=== PATIENT | female | born 1965 | race Caucasian/White ===

== ENCOUNTER 2019-10-20 18:10 | Emergency (ER) | payer MEDICAID, SELFPAY ==
[2019-10-20 18:14] VITALS: BP 103/84; PULSE 116; RESP 18; TEMP 36.6; O2SAT 93; BMI 23.0
--- NOTE | 2019-10-20 18:33 | ED_ITS ---
HPI - General Adult General: Chief complaint: General Medical Stated complaint: neck pain, nausea Time Seen by Provider: 10/20/19 18:19 History of Present Illness: HPI narrative: Patient complains about the right side of her neck and back hurting for the last 3 days not sure what caused the woke up that way. Has pain with range of motion does feel nauseous from the pain. MD complaint: Neck pain Onset (ago): day(s) Location: neck and right Radiation: back Severity: moderate Severity scale (1-10): 6 Quality: burning and aching Pain Consistency: constant Relieving factors: immobilization Exacerbating factors: movement Associated symptoms: Reports nausea; Deny chest pain, dyspnea, headache(s) or rash Treatments prior to arrival: none Review of Systems Narrative: Patient with history of chronic pain complains about the right side of her neck hurting down into the trapezius area over the last 3 days woke [address] felt like neck was somewhat stiff Const: Denies: fever, chills or body aches Eyes: Denies: change in vision or blurry vision ENMT: Denies: throat pain or nasal congestion Card: Denies: chest pain or shortness of breath on exertion Resp: Denies: shortness of breath, productive cough or non-productive cough GI: Reports: nausea Musc: Denies: extremity pain Skin/Breast: Denies: rash Neuro: Denies: headache Psych: Denies: anxiety or depression James/Lymph: Denies: easy bruising PFSH ED PFSH: Social History Smoking and tobacco status: never smoked Physical Exam Const: COMMON NORMALS: no apparent distress, average body habitus and oriented x3 HENMT: COMMON NORMALS: normocephalic HEAD & SCALP: normal to inspection and normocephalic FACE & SINUS: normal facial exam Eye: COMMON NORMALS: conjunctivae normal GENERAL EYE: normal appearance of both eyes CONJUNCTIVA: Yes conjunctivae normal Neck/C-Spine: COMMON NORMALS: no JVD Chest: COMMONS NORMALS: inspection of chest normal Resp: COMMON NORMALS: normal respiratory effort and clear to auscultation bilaterally AUSCULTATION: clear to auscultation bilaterally Cardio: COMMON NORMALS: no JVD, regular rate and regular rhythm RATE: regular rate RHYTHM: regular rhythm GI: COMMON NORMALS: normal to inspection, nondistended, normoactive bowel sounds Back/Pelvis: OTHER: Patient has tenderness from the base the right-sided neck to the right shoulder down to where the trapezius attaches near the spine muscles tender throughout does have range of motion but pain with range of motion able to turn the head without problems. Extremity: COMMON NORMALS: normal to inspection and full ROM Neuro: COMMON NORMALS: oriented x3 Course Vital Signs: Vital signs: Vital Signs Temperature 97.8 F 10/20/19 18:14 Pulse Rate 116 H 10/20/19 18:14 Respiratory Rate 18 10/20/19 18:14 Blood Pressure 103/84 10/20/19 18:14 Pulse Oximetry 93 10/20/19 18:14 Coding Level of Care Code ED Microcomputer Technician for Bess Chen
[2019-10-20] MEDS: orphenadrine 30 mg/mL Inj 2 mL 60 MG IM (18:38)
[2019-10-20] MEDS: ketorolac 60 mg/2 mL INJ IM (18:38)
[2019-10-20 18:43] VITALS: RESP 18
[2019-10-20] MEDS: ondansetron 4 MG Tablet 8 MG PO (19:12)
[2019-10-20 19:35] VITALS: BP 116/72; PULSE 108; RESP 18; TEMP 36.4; O2SAT 94
== END 2019-10-20 19:37 | disposition home or self-care (01) ==
LOC: ER 18:50
PROVIDERS: Emergency Provider Nurse Practitioner Family; Family Provider Family Medicine; PCP Family Medicine
DX: M54.2 Cervicalgia (principal); M54.9 Dorsalgia, unspecified; R11.0 Nausea
CPT/HCPCS: 12345; 96372; 99281; 99282; 99283; J1885; J2360; Q0162

== ENCOUNTER 2020-01-26 15:59 | Emergency (ER) | payer MEDICAID, SELFPAY ==
[2020-01-26 16:05] VITALS: BP 149/102; PULSE 95; RESP 18; TEMP 36.6; O2SAT 97; BMI 23.9
--- NOTE | 2020-01-26 16:25 | XRR_ITS ---
PROCEDURE INFORMATION: Exam: XR Chest, 2 Views Exam date and time: 01/26/2020 4:25 PM Age: 54 years old Clinical indication: Other: Body aches TECHNIQUE: Imaging protocol: XR of the chest Views: 2 views. COMPARISON: No relevant prior studies available. FINDINGS: Lungs: Unremarkable. No consolidation. The lungs are hyperinflated. Pleural space: Unremarkable. No pleural effusion. No pneumothorax. Heart/Mediastinum: Unremarkable. No cardiomegaly. The aorta is ectatic. Bones/joints: Unremarkable. XR/XR chest 2V* [id number] IMPRESSION: No acute findings. The lungs are hyperinflated but clear.
--- NOTE | 2020-01-26 16:29 | W.ED.GENADLT ---
HPI - General Adult General: Chief complaint: General Medical Stated complaint: BODY ACHES/N Time Seen by Provider: 01/26/20 16:16 Source: patient Mode of arrival: ambulatory Limitations: no limitations History of Present Illness: HPI narrative: Patient is a 54-year-old female patient who presents with generalized body aches. She said all her joints, most of the muscles are hurting. She denies any fever. No nausea or vomiting. She does endorse some tick bites. No diaphoresis. No trouble breathing. Her only complaint is generalized body aches and pains Associated symptoms: Deny dyspnea, headache(s), nausea, rash, palpitations or vomiting Review of Systems General: Reports: 10 or more systems reviewed and unremarkable except in HPI and below Const: Denies: fever(s), chills or body aches Eyes: Denies: change in vision or blurry vision ENMT: Denies: throat pain, enlarged tonsils, odynophagia, hoarseness, mouth pain or swelling of lips/tongue Card: Denies: palpitations, irregular heart rhythm, edema or swelling of feet/ankles Resp: Denies: dyspnea, productive cough or non-productive cough GI: Denies: abdominal pain, nausea or vomiting : Denies: flank pain, difficulty voiding, dysuria, urinary frequency, urinary urgency or urinary hesitancy Musc: Reports: extremity pain and joint pain; Denies: neck pain, back pain or extremity swelling Skin/Breast: Denies: rash, pruritus or erythema Neuro: Denies: headache(s), numbness in extremities or weakness in extremities Endo: Denies: polyuria, polydipsia or tired all the time [facility] ED PFSH: Social History Smoking and tobacco status: never smoked Physical Exam Const: COMMON NORMALS: no acute distress, average body habitus, patient oriented x3, no limitations, healthy appearing, alert and well nourished Neck/C-Spine: COMMON NORMALS: no meningeal signs and no JVD Resp: COMMON NORMALS: normal respiratory effort, No retractions, No use of accessory muscles, clear to auscultation bilaterally and percussion normal AUSCULTATION: clear to auscultation bilaterally PERCUSSION: percussion normal Cardio: COMMON NORMALS: no JVD, regular rate, regular rhythm, S1 normal heart sound present, S2 normal heart sound present, No gallops present (Cardio), No clicks present (Cardio), No murmurs present (Cardio), No rub (Cardio) and Peripheral pulses 2+ throughout RATE: regular rate RHYTHM: regular rhythm HEART SOUNDS: S1 normal heart sound present and S2 normal heart sound present PERIPHERAL PULSES: Peripheral pulses 2+ throughout GI: COMMON NORMALS: Normal to inspection, nondistended, normoactive bowel sounds present, Soft to palpation, non-tender, No hepatosplenomegaly present, no masses and no bruits PALPATION: Yes Soft to palpation and Yes No hepatosplenomegaly present : COMMON NORMALS: Yes no CVA tenderness BLADDER/KIDNEY EXAM: Yes no CVA tenderness Back/Pelvis: COMMON NORMALS: no CVA tenderness Extremity: COMMON NORMALS: normal to inspection, full ROM, capillary refill normal, no calf tenderness and no pedal edema Neuro: COMMON NORMALS: patient oriented x3 SENSORIUM/ORIENTATION: Yes alert MENINGEAL SIGNS: Yes no meningeal signs Skin: COMMON NORMALS: no rashes or lesions noted, no wounds, turgor normal, no jaundice, no petechiae and no mottling GENERAL SKIN EXAM: no rashes or lesions noted and turgor normal Course Reevaluation(s): Reevaluation #1: Discussed her lab and imaging findings with her. Negative for acute findings. CRP negative, no inflammation. We will wait on the results of the tickborne illness tests. We will discharge her home with a few days supply of hydrocodone. Explained to her blood glucose is significantly elevated and she is advised to be compliant to her medications. She voiced understanding and is in agreement with the plan. Time: 18:18 Vital Signs: Vital signs: Vital Signs Temperature 97.9 F 01/26/20 16:05 Pulse Rate 78 01/26/20 19:04 Respiratory Rate 18 01/26/20 19:04 Blood Pressure 142/65 01/26/20 19:04 Pulse Oximetry 98 01/26/20 19:04 MDM - General Adult MDM Narrative: Medical decision making narrative: 54-year-old female patient who presents with generalized body aches. Evaluation is negative for inflammatory/infectious cause. Examination was unremarkable. She is tested for tickborne illness as she has had tick bites in the last couple of weeks. She does not believe any of them was engorged though. She is discharged home with a few tablets of hydrocodone and will be contacted with the results of the tick panel. She is to follow-up with her primary care provider Medical Records: Attestation: I reviewed the patient's medical records. Lab Data: Attestation: I reviewed the patient's lab results. Labs: Lab Results 01/26/20 01/26/20 01/26/20 Range/Units 16:35 16:35 17:07 WBC 6.1 (4.0-10.0) 10^3/ uL RBC 4.58 (4.1-5.3) 10^6/u L Hgb 13.3 (11.5-15.3) g/dL Hct 40.5 (37.0-47.0) % MCV 88.4 (81-99) fL MCH 29.0 (28.0-34.0) pg MCHC 32.8 (30.0-36.0) g/dL RDW 12.6 (12.1-15.1) % Plt Count 203 (130-400) 10^3/c mm MPV 11.4 H (7.4-10.4) fL Neut % (Auto) 63.7 % Lymph % (Auto) 28.8 % Sullivan % (Auto) 5.7 % Eos % (Auto) 1.1 % Baso % (Auto) 0.5 % Neut # (Auto) 3.9 (1.8-7.7) 10^3/u L Lymph # (Auto) 1.8 (0.8-4.8) 10^3/u L Sullivan # (Auto) 0.4 (0.2-0.9) 10^3/u L Eos # (Auto) 0.1 (0.0-0.8) 10^3/u L Baso # (Auto) 0.0 (0.0-0.1) 10^3/u L Nucleated RBC % (a uto) 0 % Nucleated RBCs # 0.0 /100WBC Sodium 135 L (136-145) mmol/L Potassium 3.9 (3.5-5.1) mmol/L Chloride 96 L (98-107) mmol/L Carbon Dioxide 28 (22-29) mmol/L Anion Gap 14.9 (5-19) BUN 11 (6-20) mg/dL Creatinine 0.5 (0.5-0.9) mg/dL GFR Calculation 128.1 (90-130) mL/min Glucose 416 H (65-115) mg/dL Calculated Osmolal ity 294 (285-295) mOsm/k g Calcium 9.6 (8.5-10.5) mg/dL Total Bilirubin 0.2 (0.15-1.2) mg/dL AST 29 (0-32) U/L ALT 17 (0-33) U/L Alkaline Phosphata se 230 H (35-105) IU/L Creatine Kinase 33 (26-192) U/L C-Reactive Protein 1.0 (0.0-4.9) mg/L Total Protein 6.3 L (6.6-8.7) g/dL Albumin 3.9 (3.5-5.2) g/dL Globulin 2.4 (1.3-4.6) g/dL Urine Color Yellow (Yellow) Urine Appearance Clear (CLEAR) Urine pH 5 (5-7) Ur Specific Gravit y 1.010 (1.005-1.030) Urine Protein Neg (Negative) Urine Glucose (UA) 4+ H (Normal) Urine Ketones Negative (Negative) Urine Blood Neg (Negative) Urine Nitrate Negative (Negative) Urine Bilirubin Neg (NEGATIVE) Urine Urobilinogen Norm (Negative) mg/dL Ur Leukocyte Lillie ase Negative (Negative) Imaging Data^: CXR: Radiologist's impression: [place] [address] XRay Report Signed Patient: Franklin Farah #: [id number] : 1965Acct#:[id number] Age/Sex: 54 / FADM Date: 01/26/20 Loc: ERRoom/Bed: Attending Dr: Ordering Provider/Ordering MD: Héctor Crawford [place] [facility] [place] Service: 01/26/20 Procedure(s): XR chest 2V* 63099 Accession Number(s): [id number] Report Number: [id number] PROCEDURE INFORMATION: Exam: XR Chest, 2 Views Exam date and time: 01/26/2020 4:25 PM Age: 54 years old Clinical indication: Other: Body aches TECHNIQUE: Imaging protocol: XR of the chest Views: 2 views. COMPARISON: No relevant prior studies available. FINDINGS: Lungs: Unremarkable. No consolidation. The lungs are hyperinflated. Pleural space: Unremarkable. No pleural effusion. No pneumothorax. Heart/Mediastinum: Unremarkable. No cardiomegaly. The aorta is ectatic. Bones/joints: Unremarkable. XR/XR chest 2V* [id number] IMPRESSION: No acute findings. The lungs are hyperinflated but clear. Discharge Plan Discharge Patient Disposition: Home, Self-Care Clinical Impression: Generalized body aches Condition: Stable Prescriptions: [place] 5-325 mg tablet 1 tab PO Q8H PRN (Reason: pain) Qty: 10 RF: 0 Zofran 4 mg tablet 4 mg PO Q8H PRN (Reason: nausea and vomiting) Qty: 30 RF: 0 Continued prednisone 5 mg tablet 5 mg PO DAILY RF: 0 mycophenolate mofetil 200 mg/mL suspension for reconstitution See Rx Instructions .ROUTE .COMPLEX RF: 0 tacrolimus 1 mg capsule See Rx Instructions .ROUTE .COMPLEX RF: 0 Novolog Flexpen U-100 Insulin 100 unit/mL (3 mL) Insulin Pen See Rx Instructions .ROUTE .COMPLEX RF: 0 Lantus Solostar U-100 Insulin 100 unit/mL (3 mL) insulin pen 30 unit SUBCUT BEDTIME RF: 0 Discharge Orders: Discharge Order (Routine); Ordered 01/26/20 Ordered By: Héctor Crawford Referrals: Asha Kinsey DO [Primary Care Provider] - 4-7 days Patient Instructions: Myalgia Activity Restrictions/Additional Instructions: Return for any new or worsening symptoms. Follow-up with your primary care provider within 1 week. You will be contacted with the results of your tick tests. Discharge Date/Time: 01/26/20 19:06 Coding Level of Care Code ED Vp Of Digital Marketing for Bess Fwd Exam Comprehensive
[2020-01-26 16:48] LABS: Basophils % 0.5 %; Eosinophils # 0.1 10^3/uL (0.0-0.8); Eosinophils % 1.1 %; Hematocrit 40.5 % (37.0-47.0); Hemoglobin 13.3 g/dL (11.5-15.3); Lymphocytes # 1.8 10^3/uL (0.8-4.8); Lymphocytes % 28.8 %; Mean Corpuscular HGB Conc 32.8 g/dL (30.0-36.0); Mean Corpuscular Volume 88.4 fL (81-99); Mean Platelet Volume 11.4 fL (7.4-10.4); Monocytes # 0.4 10^3/uL (0.2-0.9); Monocytes % 5.7 %; Neutrophils # 3.9 10^3/uL (1.8-7.7); Neutrophils % 63.7 %; Nucleated Red Blood Cells % 0 %; Platelet Count 203 10^3/cmm (130-400); Red Blood Count 4.58 10^6/uL (4.1-5.3); Red Cell Distribution Width 12.6 % (12.1-15.1); White Blood Count 6.1 10^3/uL (4.0-10.0)
[2020-01-26] MEDS: ketorolac 60 mg/2 mL INJ IM (17:00)
[2020-01-26] MEDS: orphenadrine 30 mg/mL Inj 2 mL 60 MG IM (17:00)
[2020-01-26 17:02] LABS: Alanine Aminotransferase 17 U/L (0-33); Albumin Level 3.9 g/dL (3.5-5.2); Alkaline Phosphatase 230 IU/L (35-105); Anion Gap 14.9 (5-19); Aspartate Amino Transferase 29 U/L (0-32); Blood Urea Nitrogen 11 mg/dL (6-20); Calcium 9.6 mg/dL (8.5-10.5); Carbon Dioxide 28 mmol/L (22-29); Chloride 96 mmol/L (98-107); Creatine Phosphokinase 33 U/L (26-192); Creatinine Clr Calc Pharmacy 112.2564; Globulin 2.4 g/dL (1.3-4.6); Glomerular Filtration Rate 128.1 mL/min (90-130); Glucose 416 mg/dL (65-115); Osmolality Calculated 294 mOsm/kg (285-295); Potassium 3.9 mmol/L (3.5-5.1); Sodium 135 mmol/L (136-145); Total Bilirubin 0.2 mg/dL (0.15-1.2); Total Protein 6.3 g/dL (6.6-8.7)
[2020-01-26 17:33] LABS: Add Urine Microscopic? NO
[2020-01-26 17:44] LABS: Bilirubin Urine Neg (NEGATIVE); Blood Urine Neg (Negative); Glucose Urine UA 4+ (Normal); Ketones Urine Negative (Negative); Leukocyte Esterase Urine Negative (Negative); Nitrate Urine Negative (Negative); Protein Urine Neg (Negative); Urine Appearance Clear (CLEAR); Urine Color Yellow (Yellow); Urobilinogen Urine Norm (Negative); pH Urine 5 (5-7)
[2020-01-26] MEDS: ondansetron 4 MG Tablet PO (18:59)
[2020-01-26 19:04] VITALS: BP 142/65; PULSE 78; RESP 18; O2SAT 98
== END 2020-01-26 19:06 | disposition home or self-care (01) ==
PROVIDERS: Emergency Provider Family Medicine; Family Provider Family Medicine; PCP Family Medicine
DX: R52 Pain, unspecified (principal)
CPT/HCPCS: 12345; 36415; 71046; 80053; 81003; 82550; 85025; 86140; 86618; 86666; 86757; 96372; 99281; 99283; J1885; J2360; Q0162

== ENCOUNTER 2020-02-03 13:39 | Emergency (ER) | payer MEDICAID, SELFPAY ==
[2020-02-03 13:42] VITALS: BP 139/81; PULSE 107; RESP 14; TEMP 36.8; O2SAT 98; BMI 23.6
--- NOTE | 2020-02-03 14:05 | W.ED.WEAKNES ---
HPI - Weakness General: Chief complaint: Weakness Stated complaint: aches all over Time Seen by Provider: 02/03/20 13:55 History of Present Illness: HPI Narrative: Patient complains about ongoing achiness generalized. This is gone on since prior to her last visit. 1 of the results were tick panel. Onset (ago): week(s) Duration: constant Location: generalized Migration: none Severity: moderate Quality: aching Relieving factors: none Associated symptoms: Reports no associated symptoms; Denies chest pain, chills, easy bruising, fever(s), headache(s), nausea or vomiting Review of Systems Const: Denies: fever(s), chills or body aches Eyes: Denies: change in vision or blurry vision ENMT: Denies: throat pain or nasal congestion Card: Denies: chest pain or dyspnea on exertion Resp: Denies: dyspnea, productive cough or non-productive cough GI: Denies: abdominal pain, nausea or vomiting Musc: Reports: other (Muscle aching joint aching); Denies: extremity pain Skin/Breast: Denies: rash Neuro: Denies: headache(s) Psych: Denies: anxiety or depression James/Lymph: Denies: easy bruising PFSH ED PFSH: Social History Smoking and tobacco status: never smoked Physical Exam Const: COMMON NORMALS: no acute distress, average body habitus and patient oriented x3 HENMT: COMMON NORMALS: normocephalic HEAD & SCALP: normal to inspection and normocephalic FACE & SINUS: normal facial exam Eye: COMMON NORMALS: conjunctivae normal GENERAL EYE: appearance normal, both eyes and all related structures CONJUNCTIVA: Yes conjunctivae normal Neck/C-Spine: COMMON NORMALS: no JVD Chest: COMMONS NORMALS: normal inspection of the chest Resp: COMMON NORMALS: normal respiratory effort and clear to auscultation bilaterally AUSCULTATION: clear to auscultation bilaterally Cardio: COMMON NORMALS: no JVD, regular rate and regular rhythm RATE: regular rate RHYTHM: regular rhythm GI: COMMON NORMALS: Normal to inspection, nondistended, normoactive bowel sounds present Extremity: COMMON NORMALS: normal to inspection and full ROM Neuro: COMMON NORMALS: patient oriented x3 Course Vital Signs: Vital signs: Vital Signs Temperature 98.3 F 02/03/20 13:42 Pulse Rate 107 H 02/03/20 13:42 Respiratory Rate 14 02/03/20 13:42 Blood Pressure 139/81 02/03/20 13:42 Pulse Oximetry 98 02/03/20 13:42 Discharge Plan Discharge Prescriptions: No Action prednisone 5 mg tablet 5 mg PO DAILY RF: 0 mycophenolate mofetil 200 mg/mL suspension for reconstitution See Rx Instructions .ROUTE .COMPLEX RF: 0 tacrolimus 1 mg capsule See Rx Instructions .ROUTE .COMPLEX RF: 0 insulin aspart U-100 [Novolog Flexpen U-100 Insulin] 100 unit/mL (3 mL) Insulin Pen See Rx Instructions .ROUTE .COMPLEX RF: 0 Lantus Solostar U-100 Insulin 100 unit/mL (3 mL) insulin pen 30 unit SUBCUT BEDTIME RF: 0 ondansetron HCl [Zofran] 4 mg tablet 4 mg PO Q8H PRN (Reason: nausea and vomiting) Qty: 30 RF: 0 Coding Level of Care Code ED Other Sales Support Worker for Nikunjg Gustavo
[2020-02-03] MEDS: HYDROcodone-acetaminophen 7.5-325 mg Tablet 1 TAB PO (14:16)
[2020-02-03 14:58] VITALS: BP 138/62; PULSE 74; RESP 18; O2SAT 96
== END 2020-02-03 15:02 | disposition home or self-care (01) ==
PROVIDERS: Emergency Provider Nurse Practitioner Family; PCP Family Medicine
DX: R53.1 Weakness (principal); Z79.4 Long term (current) use of insulin
CPT/HCPCS: 12345; 99281; 99282

== ENCOUNTER 2020-02-17 15:57 | Emergency (ER) | payer MEDICAID, SELFPAY ==
[2020-02-17 16:12] VITALS: BP 117/85; PULSE 104; RESP 18; TEMP 36.7; O2SAT 95; BMI 22.1
[2020-02-17 16:22] VITALS: RESP 18
--- NOTE | 2020-02-17 16:52 | W.ED.GENADLT ---
HPI - General Adult General: Chief complaint: Medical Clearance Stated complaint: multiple complaints Time Seen by Provider: 02/17/20 16:16 History of Present Illness: HPI narrative: This patient is a 54-year-old female presenting today with pain all over. She tells me it is been going on for 2 days but on review of records she has been here twice in the past several weeks for this. She said she has had similar symptoms once in the past when she had take fever. She said she was tested recently for tick illnesses and the test was negative. She denies any history of lupus or arthritis. She does have a history of kidney transplants twice. The most recent was 10 years ago and she still has that functioning kidney. She is on tacrolimus and prednisone. She is a diabetic and does not control her blood sugar well based on review of prior lab results. She is not sure if she took her insulin at all today. She has not checked her blood sugar since she was in the ED last time. She said she cannot take Tylenol because it upsets her stomach. She is been told not to take ibuprofen because of her kidneys. She does not have any pain medicine prescribed at home. After her last ER visit she was supposed to see her primary care. She says her primary care is a nurse practitioner and she did not want to see them. She wants to see a real doctor. She was given a referral to another physician but apparently they were not able to take new patient. She is supposed to call another doctor on Wednesday to see if she can get in there. She follows with [facility] for her kidney transplant. She said she talk to them on a phone consult yesterday and they said everything was good with her kidney. She denies fevers or chills. She denies nausea, vomiting, diarrhea. She denies urinary symptoms. She denies swollen, hot, red joints. She denies rash. She denies chest pain, cough, shortness of breath. Onset (ago): week(s) Severity: severe Severity scale (1-10): 10 Quality: aching Pain Consistency: constant Relieving factors: none Exacerbating factors: none Associated symptoms: Reports no associated symptoms; Deny chest pain, dyspnea, headache(s), malaise, nausea, rash or vomiting Review of Systems General: Reports: 10 or more systems reviewed and unremarkable except in HPI and below Const: Reports: body aches; Denies: fever(s), chills, fatigue or malaise Eyes: Denies: change in vision ENMT: Denies: odynophagia Card: Denies: chest pain or swelling of feet/ankles Resp: Denies: dyspnea, productive cough or non-productive cough GI: Denies: abdominal pain, nausea or vomiting : Denies: flank pain or difficulty voiding Musc: Denies: neck pain or back pain Skin/Breast: Denies: rash Neuro: Denies: headache(s), numbness in extremities or weakness in extremities James/Lymph: Denies: easy bruising or easy bleeding PFSH ED PFSH: Social History Smoking and tobacco status: never smoked Physical Exam Const: COMMON NORMALS: no acute distress, patient oriented x3, no limitations and alert GENERAL APPEARANCE: cooperative and comfortable HENMT: HEAD & SCALP: normal to inspection FACE & SINUS: normal facial exam Eye: GENERAL EYE: appearance normal, both eyes and all related structures Neck/C-Spine: COMMON NORMALS: supple, no meningeal signs and no JVD Chest: COMMONS NORMALS: normal inspection of the chest Resp: COMMON NORMALS: normal respiratory effort, No use of accessory muscles and clear to auscultation bilaterally AUSCULTATION: clear to auscultation bilaterally Cardio: COMMON NORMALS: no JVD, regular rate, regular rhythm and No murmurs present (Cardio) RATE: regular rate RHYTHM: regular rhythm GI: COMMON NORMALS: Normal to inspection, nondistended, normoactive bowel sounds present, Soft to palpation and non-tender INSPECTION: Yes normal to inspection AUSCULTATION: Yes normoactive bowel sounds PALPATION: Yes Soft to palpation Back/Pelvis: COMMON NORMALS: thoracic and lumbar spine normal to inspection Extremity: COMMON NORMALS: normal to inspection Neuro: COMMON NORMALS: patient oriented x3, moves all extremities, no focal motor deficits and no sensory deficits noted SENSORIUM/ORIENTATION: Yes alert MENINGEAL SIGNS: Yes no meningeal signs Psych: COMMON NORMALS: mental status grossly normal, cooperative and normal affect Skin: COMMON NORMALS: no rashes or lesions noted and turgor normal GENERAL SKIN EXAM: no rashes or lesions noted and turgor normal Course Vital Signs: Vital signs: Vital Signs Temperature 98.1 F 02/17/20 18:49 Pulse Rate 100 02/17/20 18:49 Respiratory Rate 22 H 07/11/20 18:49 Blood Pressure 124/95 02/17/20 18:49 Pulse Oximetry 98 02/17/20 18:49 MDM - General Adult MDM Narrative: Medical decision making narrative: Normal exam, nonfocal HPI. Her complaint is pain all over. She is immune compromised and is a poorly controlled diabetic. Labs on prior visits for this were pretty unremarkable. Can repeat them today including inflammatory markers, CK, urine. Lab Data: Labs: Lab Results 02/17/20 02/17/20 02/17/20 Range/Units 17:00 17:22 17:22 WBC 6.2 (4.0-10.0) 10^3/ uL RBC 4.96 (4.1-5.3) 10^6/u L Hgb 14.3 (11.5-15.3) g/dL Hct 43.2 (37.0-47.0) % MCV 87.1 (81-99) fL MCH 28.8 (28.0-34.0) pg MCHC 33.1 (30.0-36.0) g/dL RDW 12.4 (12.1-15.1) % Plt Count 231 (130-400) 10^3/c mm MPV 12.0 H (7.4-10.4) fL Neut % (Auto) 52.3 % Lymph % (Auto) 39.2 % [place] % (Auto) 5.8 % Eos % (Auto) 1.8 % Baso % (Auto) 0.6 % Neut # (Auto) 3.26 (1.8-7.7) 10^3/u L Lymph # (Auto) 2.4 (0.8-4.8) 10^3/u L [place] # (Auto) 0.4 (0.2-0.9) 10^3/u L Eos # (Auto) 0.1 (0.0-0.8) 10^3/u L Baso # (Auto) 0.0 (0.0-0.1) 10^3/u L Nucleated RBC % (a uto) 0 % Nucleated RBCs # 0.0 /100WBC ESR 33 H (0-15) mm/hr Sodium (136-145) mmol/L Potassium (3.5-5.1) mmol/L Chloride (98-107) mmol/L Carbon Dioxide (22-29) mmol/L Anion Gap (5-19) BUN (6-20) mg/dL Creatinine (0.5-0.9) mg/dL GFR Calculation (90-130) mL/min Glucose (65-115) mg/dL POC Glucose (70-110) mg/dL Calculated Osmolal ity (285-295) mOsm/k g Calcium (8.5-10.5) mg/dL Total Bilirubin (0.15-1.2) mg/dL AST (0-32) U/L ALT (0-33) U/L Alkaline Phosphata se (35-105) IU/L Creatine Kinase (26-192) U/L C-Reactive Protein (0.0-4.9) mg/L Total Protein (6.6-8.7) g/dL Albumin (3.5-5.2) g/dL Globulin (1.3-4.6) g/dL Urine Color Straw (Yellow) Urine Appearance Clear (CLEAR) Urine pH 5 (5-7) Ur Specific Gravit y 1.010 (1.005-1.030) Urine Protein Neg (Negative) Urine Glucose (UA) 4+ H (Normal) Urine Ketones Negative (Negative) Urine Blood Neg (Negative) Urine Nitrate Negative (Negative) Urine Bilirubin Neg (NEGATIVE) Urine Urobilinogen Norm (Negative) mg/dL Ur Leukocyte Lillie ase Negative (Negative) 02/17/20 02/17/20 02/17/20 Range/Units 17:22 17:27 17:28 WBC (4.0-10.0) 10^3/ uL RBC (4.1-5.3) 10^6/u L Hgb (11.5-15.3) g/dL Hct (37.0-47.0) % MCV (81-99) fL MCH (28.0-34.0) pg MCHC (30.0-36.0) g/dL RDW (12.1-15.1) % Plt Count (130-400) 10^3/c mm MPV (7.4-10.4) fL Neut % (Auto) % Lymph % (Auto) % [place] % (Auto) % Eos % (Auto) % Baso % (Auto) % Neut # (Auto) (1.8-7.7) 10^3/u L Lymph # (Auto) (0.8-4.8) 10^3/u L [place] # (Auto) (0.2-0.9) 10^3/u L Eos # (Auto) (0.0-0.8) 10^3/u L Baso # (Auto) (0.0-0.1) 10^3/u L Nucleated RBC % (a uto) % Nucleated RBCs # /100WBC ESR (0-15) mm/hr Sodium 133 L (136-145) mmol/L Potassium 4.1 (3.5-5.1) mmol/L Chloride 96 L (98-107) mmol/L Carbon Dioxide 28 (22-29) mmol/L Anion Gap 13.1 (5-19) BUN 11 (6-20) mg/dL Creatinine 0.7 (0.5-0.9) mg/dL GFR Calculation 86.9 L (90-130) mL/min Glucose 454 H (65-115) mg/dL POC Glucose 421 405 (70-110) mg/dL Calculated Osmolal ity 292 (285-295) mOsm/k g Calcium 9.8 (8.5-10.5) mg/dL Total Bilirubin 0.2 (0.15-1.2) mg/dL AST 19 (0-32) U/L ALT 18 (0-33) U/L Alkaline Phosphata se 238 H (35-105) IU/L Creatine Kinase 25 L (26-192) U/L C-Reactive Protein 1.0 (0.0-4.9) mg/L Total Protein 7.4 (6.6-8.7) g/dL Albumin 4.0 (3.5-5.2) g/dL Globulin 3.4 (1.3-4.6) g/dL Urine Color (Yellow) Urine Appearance (CLEAR) Urine pH (5-7) Ur Specific Gravit y (1.005-1.030) Urine Protein (Negative) Urine Glucose (UA) (Normal) Urine Ketones (Negative) Urine Blood (Negative) Urine Nitrate (Negative) Urine Bilirubin (NEGATIVE) Urine Urobilinogen (Negative) mg/dL Ur Leukocyte Lillie ase (Negative) 02/17/20 Range/Units 18:46 WBC (4.0-10.0) 10^3/ uL RBC (4.1-5.3) 10^6/u L Hgb (11.5-15.3) g/dL Hct (37.0-47.0) % MCV (81-99) fL MCH (28.0-34.0) pg MCHC (30.0-36.0) g/dL RDW (12.1-15.1) % Plt Count (130-400) 10^3/c mm MPV (7.4-10.4) fL Neut % (Auto) % Lymph % (Auto) % [place] % (Auto) % Eos % (Auto) % Baso % (Auto) % Neut # (Auto) (1.8-7.7) 10^3/u L Lymph # (Auto) (0.8-4.8) 10^3/u L [place] # (Auto) (0.2-0.9) 10^3/u L Eos # (Auto) (0.0-0.8) 10^3/u L Baso # (Auto) (0.0-0.1) 10^3/u L Nucleated RBC % (a uto) % Nucleated RBCs # /100WBC ESR (0-15) mm/hr Sodium (136-145) mmol/L Potassium (3.5-5.1) mmol/L Chloride (98-107) mmol/L Carbon Dioxide (22-29) mmol/L Anion Gap (5-19) BUN (6-20) mg/dL Creatinine (0.5-0.9) mg/dL GFR Calculation (90-130) mL/min Glucose (65-115) mg/dL POC Glucose 348 (70-110) mg/dL Calculated Osmolal ity (285-295) mOsm/k g Calcium (8.5-10.5) mg/dL Total Bilirubin (0.15-1.2) mg/dL AST (0-32) U/L ALT (0-33) U/L Alkaline Phosphata se (35-105) IU/L Creatine Kinase (26-192) U/L C-Reactive Protein (0.0-4.9) mg/L Total Protein (6.6-8.7) g/dL Albumin (3.5-5.2) g/dL Globulin (1.3-4.6) g/dL Urine Color (Yellow) Urine Appearance (CLEAR) Urine pH (5-7) Ur Specific Gravit y (1.005-1.030) Urine Protein (Negative) Urine Glucose (UA) (Normal) Urine Ketones (Negative) Urine Blood (Negative) Urine Nitrate (Negative) Urine Bilirubin (NEGATIVE) Urine Urobilinogen (Negative) mg/dL Ur Leukocyte Lillie ase (Negative) Discharge Plan Discharge Patient Disposition: Home, Self-Care Clinical Impression: Acute hyperglycemia, History of noncompliance with medical treatment Condition: Stable Prescriptions: New hydrocodone-acetaminophen 5-325 mg tablet 1 tab PO Q6H PRN (Reason: pain) Qty: 7 RF: 0 No Action hydrocodone-acetaminophen 5-325 mg tablet 1 tab PO TID PRN (Reason: pain) Qty: 14 RF: 0 prednisone 5 mg tablet 5 mg PO DAILY RF: 0 mycophenolate mofetil 200 mg/mL suspension for reconstitution See Rx Instructions .ROUTE .COMPLEX RF: 0 tacrolimus 1 mg capsule See Rx Instructions .ROUTE .COMPLEX RF: 0 insulin aspart U-100 [Novolog Flexpen U-100 Insulin] 100 unit/mL (3 mL) Insulin Pen See Rx Instructions .ROUTE .COMPLEX RF: 0 Lantus Solostar U-100 Insulin 100 unit/mL (3 mL) insulin pen 30 unit SUBCUT BEDTIME RF: 0 ondansetron HCl [Zofran] 4 mg tablet 4 mg PO Q8H PRN (Reason: nausea and vomiting) Qty: 30 RF: 0 mupirocin 2 % ointment See Rx Instructions .ROUTE .COMPLEX RF: 0 Discharge Orders: Discharge Order (Routine); Ordered 02/17/20 Ordered By: Maren Goncalves Referrals: Asha Kinsey DO [Primary Care Provider] - Discharge Diet: Diabetic Discharge Activity: Resume usual activity Patient Instructions: Diabetes Mellitus Type 2 in Adults (ED) Activity Restrictions/Additional Instructions: You must check your blood sugar and take your insulin every day. Your pain is likely related to your poor control of your blood sugar. Establish care with your new primary care physician on Wednesday as planned. Discharge Date/Time: 02/17/20 18:49 Coding Level of Care Code ED Wood Room Hand for Chg Fwd Exam Comprehensive
[2020-02-17 17:22] VITALS: BP 124/95; PULSE 100; RESP 22; O2SAT 98
[2020-02-17 17:32] LABS: Glucose Point of Care 405 mg/dL (70-110)
[2020-02-17 17:32] LABS: Glucose Point of Care 421 mg/dL (70-110)
[2020-02-17 17:46] LABS: Add Urine Microscopic? NO
[2020-02-17 17:50] LABS: Basophils % 0.6 %; Eosinophils # 0.1 10^3/uL (0.0-0.8); Eosinophils % 1.8 %; Hematocrit 43.2 % (37.0-47.0); Hemoglobin 14.3 g/dL (11.5-15.3); Lymphocytes # 2.4 10^3/uL (0.8-4.8); Lymphocytes % 39.2 %; Mean Corpuscular HGB Conc 33.1 g/dL (30.0-36.0); Mean Corpuscular Hemoglobin 28.8 pg (28.0-34.0); Mean Corpuscular Volume 87.1 fL (81-99); Monocytes # 0.4 10^3/uL (0.2-0.9); Monocytes % 5.8 %; Neutrophils # 3.26 10^3/uL (1.8-7.7); Neutrophils % 52.3 %; Nucleated Red Blood Cells % 0 %; Platelet Count 231 10^3/cmm (130-400); Red Blood Count 4.96 10^6/uL (4.1-5.3); Red Cell Distribution Width 12.4 % (12.1-15.1); White Blood Count 6.2 10^3/uL (4.0-10.0)
[2020-02-17 18:00] VITALS: RESP 22
[2020-02-17 18:00] LABS: Bilirubin Urine Neg (NEGATIVE); Blood Urine Neg (Negative); Glucose Urine UA 4+ (Normal); Ketones Urine Negative (Negative); Leukocyte Esterase Urine Negative (Negative); Nitrate Urine Negative (Negative); Protein Urine Neg (Negative); Urine Appearance Clear (CLEAR); Urine Color Straw (Yellow); Urobilinogen Urine Norm (Negative); pH Urine 5 (5-7)
[2020-02-17 18:10] LABS: Alanine Aminotransferase 18 U/L (0-33); Alkaline Phosphatase 238 IU/L (35-105); Anion Gap 13.1 (5-19); Aspartate Amino Transferase 19 U/L (0-32); Blood Urea Nitrogen 11 mg/dL (6-20); Calcium 9.8 mg/dL (8.5-10.5); Carbon Dioxide 28 mmol/L (22-29); Chloride 96 mmol/L (98-107); Creatine Phosphokinase 25 U/L (26-192); Globulin 3.4 g/dL (1.3-4.6); Glomerular Filtration Rate 86.9 mL/min (90-130); Glucose 454 mg/dL (65-115); Osmolality Calculated 292 mOsm/kg (285-295); Potassium 4.1 mmol/L (3.5-5.1); Sodium 133 mmol/L (136-145); Total Bilirubin 0.2 mg/dL (0.15-1.2); Total Protein 7.4 g/dL (6.6-8.7)
[2020-02-17 18:31] LABS: Erythrocyte Sedimentation Rate 33 mm/hr (0-15)
[2020-02-17 18:49] VITALS: BP 124/95; PULSE 100; RESP 22; TEMP 36.7; O2SAT 98
[2020-02-17 18:50] LABS: Glucose Point of Care 348 mg/dL (70-110)
== END 2020-02-17 18:49 | disposition home or self-care (01) ==
PROVIDERS: Emergency Provider Emergency Medicine; PCP Family Medicine
DX: R73.9 Hyperglycemia, unspecified (principal); Z91.14 Patient's other noncompliance with medication regimen
CPT/HCPCS: 12345; 36415; 36416; 80053; 81003; 82550; 82962; 85025; 85651; 86140; 96372; 99281; 99283; J1815

== ENCOUNTER 2020-05-25 13:13 | Emergency (ER) | payer MEDICAID, SELFPAY ==
[2020-05-25 13:22] VITALS: BP 143/91; PULSE 88; RESP 14; TEMP 36.6; O2SAT 96; BMI 23.0
--- NOTE | 2020-05-25 13:35 | ED_ITS ---
HPI - Headache General: Chief Complaint: Headache Stated Complaint: MIGRAINE, N/V Time Seen by Provider: 05/25/20 13:32 History of Present Illness: HPI Narrative: Patient with tension type headache pain back neck radiates into the head light and sound bother her since her classic migraine that she has. MD elicited complaint: migraine Onset (ago): day(s) Onset description: gradually Location: band-like Severity: moderate Quality & Timing: aching, constant and similar to previous headaches Exacerbating factors: other (Stress) Relieving factors: nothing Associated symptoms: Reports photophobia; Deny chest pain, fever(s), nausea, rash or vomiting Review of Systems Const: Denies: fever(s), chills or body aches Eyes: Denies: change in vision or blurry vision ENMT: Denies: throat pain or nasal congestion Card: Denies: chest pain or dyspnea on exertion Resp: Denies: dyspnea, productive cough or non-productive cough GI: Denies: abdominal pain, nausea or vomiting Musc: Reports: neck pain; Denies: extremity pain Skin/Breast: Denies: rash Neuro: Reports: headache(s) Psych: Denies: anxiety or depression James/Lymph: Denies: easy bruising PFSH ED PFSH: Social History Smoking and tobacco status: never smoked Physical Exam Const: COMMON NORMALS: no acute distress, average body habitus and patient oriented x3 HENMT: COMMON NORMALS: normocephalic HEAD & SCALP: normal to inspection and normocephalic FACE & SINUS: normal facial exam Eye: COMMON NORMALS: conjunctivae normal GENERAL EYE: appearance normal, both eyes and all related structures CONJUNCTIVA: Yes conjunctivae normal DIRECT OPHTHALMOSCOPY: Yes photophobia Neck/C-Spine: COMMON NORMALS: no JVD GENERAL: Yes other (Neck muscles are tender to touch she has full range of motion no stiffness noted cervical spine intact without tenderness) Chest: COMMONS NORMALS: normal inspection of the chest Resp: COMMON NORMALS: normal respiratory effort and clear to auscultation bilaterally AUSCULTATION: clear to auscultation bilaterally Cardio: COMMON NORMALS: no JVD, regular rate and regular rhythm RATE: regular rate RHYTHM: regular rhythm GI: COMMON NORMALS: Normal to inspection, nondistended, normoactive bowel sounds present Extremity: COMMON NORMALS: normal to inspection and full ROM Neuro: COMMON NORMALS: patient oriented x3 and CN's II-XII intact bilaterally Course Vital Signs: Vital signs: Vital Signs Temperature 97.9 F 05/25/20 13:22 Pulse Rate 88 05/25/20 13:22 Respiratory Rate 14 05/25/20 13:22 Blood Pressure 143/91 05/25/20 13:22 Pulse Oximetry 96 05/25/20 13:22 Discharge Plan Discharge Condition: Good Prescriptions: No Action hydrocodone-acetaminophen 5-325 mg tablet 1 tab PO TID PRN (Reason: pain) Qty: 14 RF: 0 prednisone 5 mg tablet 5 mg PO DAILY RF: 0 mycophenolate mofetil 200 mg/mL suspension for reconstitution See Rx Instructions .ROUTE .COMPLEX RF: 0 tacrolimus 1 mg capsule See Rx Instructions .ROUTE .COMPLEX RF: 0 insulin aspart U-100 [Novolog Flexpen U-100 Insulin] 100 unit/mL (3 mL) Insulin Pen See Rx Instructions .ROUTE .COMPLEX RF: 0 Lantus Solostar U-100 Insulin 100 unit/mL (3 mL) insulin pen 30 unit SUBCUT BEDTIME RF: 0 ondansetron HCl [Zofran] 4 mg tablet 4 mg PO Q8H PRN (Reason: nausea and vomiting) Qty: 30 RF: 0 mupirocin 2 % ointment See Rx Instructions .ROUTE .COMPLEX RF: 0 hydrocodone-acetaminophen 5-325 mg tablet 1 tab PO Q6H PRN (Reason: pain) Qty: 7 RF: 0 Coding Level of Care Code ED Tractor Crane Engineer for Bess Chen
[2020-05-25] MEDS: sodium chloride 0.9% 1,000 ML 999 ML IV (13:52)
[2020-05-25] MEDS: ketorolac 30 mg/mL INJ IVP (13:53)
[2020-05-25] MEDS: diphenhydrAMINE 50 mg/mL SDV 1mL IVP (13:53)
[2020-05-25] MEDS: ondansetron 2 mg/ML SDV 2 mL 4 MG IVP (13:53)
[2020-05-25] MEDS: HYDROcodone-acetaminophen 5-325 mg Tablet 1 TAB PO (14:26)
== END 2020-05-25 15:30 | disposition home or self-care (01) ==
PROVIDERS: Emergency Provider Nurse Practitioner Family
DX: R51.9 Headache, unspecified (principal); Z79.4 Long term (current) use of insulin
CPT/HCPCS: 12345; 96361; 96374; 96375; 99282; 99283; J1200; J1885; J2405; J7030

== ENCOUNTER → 2021-05-01 13:10 | Outpatient (BNVA) | payer MEDICAID, SELFPAY | PROVIDERS: PCP Physician Assistant; Referring Provider Family Medicine; Visit Provider Specialist | DX: G56.22 Lesion of ulnar nerve, left upper limb (principal); M65.30 Trigger finger, unspecified finger | CPT/HCPCS: 95908 ==

== ENCOUNTER 2021-07-03 14:06 | Emergency (ER) | payer MEDICAID, SELFPAY ==
[2021-07-03 14:20] VITALS: BP 155/86; PULSE 99; RESP 16; TEMP 36.7; O2SAT 98; BMI 22.1
--- NOTE | 2021-07-03 15:09 | ED_ITS ---
HPI - Back Pain/Injury General: Chief Complaint: Fall Stated Complaint: Whole right side pain from fall 3 days ago Time Seen by Provider: 07/03/21 14:40 Source: patient Mode of arrival: ambulatory Limitations: no limitations History of Present Illness: HPI Narrative: Patient is a 55-year-old female who presents to ED today with a complaint of right-sided back pain and hip pain. Patient tells me approximately 10 days ago she was walking up a flight of stairs when she accidentally stumbled and fell forward. Patient states she was able to catch herself and did not fall to the ground. She states following the fall she did not have any pain but states 4 days ago she began having severe pain to her lower back and right side with radiation down into her right leg. She is not sure if the recent injury could have precipitated this. She does report previous lower back pains that were fairly similar but not as severe. She has not noticed any color or temperature changes to her extremity. She is not complaining of numbness, tingling, loss of sensation to the extremity. She states pain radiates around into her right hip and down the anteriolateral aspect of her thigh and over her anterior knee. Patient continues to ambulate well. No changes in urination or bowel habits. MD elicited complaint: back pain Pertinent past history: prior back pain Onset (ago): day(s) Timing: constant Severity: severe Pain scale (0-10): 10 Similar Symptoms Previously: Yes Quality: sharp Location: lumbar spine and right lower back Radiation: right leg below the knee Exacerbating factors: movement and walking Relieving factors: immobilization Associated symptoms: Reports no associated symptoms; Deny chills, dysuria, fatigue or fever(s) Work related injury: No Review of Systems Const: Denies: fever(s), chills, body aches, fatigue or malaise Card: Denies: chest pain Resp: Denies: dyspnea : Denies: flank pain or dysuria Musc: Reports: back pain, extremity pain and joint pain; Denies: neck pain, extremity swelling, joint swelling, joint redness, joint warmth or limited range of motion Skin/Breast: Denies: rash Neuro: Denies: headache(s), numbness in extremities, weakness in extremities, sensory changes or lack of coordination PFS ED PFSH: Medical History (Updated 07/03/21 @ 16:22 by LEONELA Polo) Diabetes Surgical History (Updated 02/03/21 @ 13:04 by Ruthy Ruiz DO) History of kidney transplant Family History (Updated 01/30/21 @ 09:54 by Wanda Willis LPN) Other Diabetes Social History (Updated 01/30/21 @ 09:54 by Wanda Willis LPN) Smoking and tobacco status: never smoked History of recent travel: No Physical Exam Const: COMMON NORMALS: no acute distress, average body habitus, patient oriented x3, no limitations, healthy appearing, alert and well nourished HENMT: COMMON NORMALS: normocephalic and atraumatic HEAD & SCALP: normocephalic and atraumatic Back/Pelvis: LUMBAR SPINE/LOWER BACK: Yes lumbar spinal tenderness Lumbar spinal tenderness location: L3, L4 and L5, Yes paraspinal muscle tenderness Lumbar paraspinal muscle tenderness: right and Yes straight leg raise positive right PELVIS: Yes buttock abnormal Buttock abnormal laterality: right Right buttock abnormal details: tenderness and Yes sciatic notch tenderness on the right SACROILIAC JOINTS: Yes SI joint(s) abnormal SI joint details: tender to palpation (R) Extremity: COMMON NORMALS: normal to inspection, full ROM, capillary refill normal, no joint enlargement, no clubbing, cyanosis or edema, no calf tenderness and no pedal edema GENERAL: Yes normal exam except as noted OTHER: R LE DP/PT pulses normal and equal bilaterally Neuro: COMMON NORMALS: patient oriented x3, moves all extremities, no focal motor deficits, no sensory deficits noted and gait normal SENSORIUM/ORIENTATI ON: Yes alert Skin: COMMON NORMALS: no rashes or lesions noted GENERAL SKIN EXAM: no rashes or lesions noted Course Vital Signs: Vital signs: Vital Signs Temperature 98.1 F 07/03/21 14:20 Pulse Rate 99 07/03/21 14:20 Respiratory Rate 18 07/03/21 15:44 Blood Pressure 155/86 07/03/21 14:20 Pulse Oximetry 97 07/03/21 15:44 MDM - Back Pain/Injury MDM Narrative: Medical decision making narrative: Patient is no acute ne urologic deficits on her exam. Her extremity is neurovascularly intact. I did have any suspicion for cord compression, epidural abscess, discitis, arterial occlusion, DVT, fracture, or any other concerns at this time. Recommend she follow-up with primary care provider for continued pain. Return to ED precautions given. Discharge Plan Discharge Patient Disposition: Home Clinical Impression: Acute lumbar radiculopathy Condition: Stable Prescriptions: New cyclobenzaprine 10 mg tablet 10 mg PO TID Qty: 14 RF: 0 prednisone 10 mg tablet 60 mg PO DAILY 5 Days Qty: 30 RF: 0 tramadol 50 mg tablet 50 mg PO Q6H PRN (Reason: pain) Qty: 14 RF: 0 No Action mycophenolate mofetil 200 mg/mL suspension for reconstitution See Rx Instructions .ROUTE .COMPLEX RF: 0 tacrolimus 1 mg capsule See Rx Instructions .ROUTE .COMPLEX RF: 0 insulin aspart U-100 [Novolog Flexpen U-100 Insulin] 100 unit/mL (3 mL) Insulin Pen See Rx Instructions .ROUTE .COMPLEX RF: 0 Lantus Solostar U-100 Insulin 100 unit/mL (3 mL) insulin pen 30 unit SUBCUT BEDTIME RF: 0 Discharge Orders: Discharge ED (Routine); Ordered 07/03/21 Ordered By: Karina Jiménez Referrals: Celi Horne PA [Primary Care Provider] - Patient Instructions: Lumbar Radiculopathy (ED) Activity Restrictions/Additional Instructions: As we discussed please follow-up with your primary care provider next week for reevaluation of your back discomfort. You may return to the emergency department for worsening or uncontrollable pain, inability to ambulate, any color or temperature changes to your extremity, swelling to your lower extremity, or any other concerns you may have. I hope you begin to feel better soon. Coding Level of Care Code ED Phone Circuit Operator for Bess Fwd Exam Detailed
[2021-07-03] MEDS: dexamethasone 10 mg/mL INJ 8 MG IM (15:43)
[2021-07-03 15:44] VITALS: RESP 18; O2SAT 97
[2021-07-03] MEDS: morphine 4 mg/mL SDV 1 mL IM (15:44)
[2021-07-03] MEDS: orphenadrine 30 mg/mL Inj 2 mL 60 MG IM (15:44)
[2021-07-03] MEDS: ondansetron 2 mg/ML SDV 2 mL 4 MG IM (16:27)
== END 2021-07-03 16:32 | disposition home or self-care (01) ==
PROVIDERS: Emergency Provider Physician Assistant; PCP Physician Assistant
DX: M54.16 Radiculopathy, lumbar region (principal); E11.9 Type 2 diabetes mellitus without complications; Z79.4 Long term (current) use of insulin
CPT/HCPCS: 96372; 99283; J1100; J2270; J2360; J2405

== ENCOUNTER 2021-12-13 16:43 | Emergency (ER) | payer MEDICAID, SELFPAY ==
--- NOTE | 2021-12-13 16:48 | CTR_ITS ---
PROCEDURE INFORMATION: Exam: CT Head Without Contrast Exam date and time: 12/13/2021 5:07 PM Age: 56 years old Clinical indication: Pain; Headache not specified; Patient HX: C/O PANIAGUA w n/v since tripping over a dogtoy a couple of days ago. Denies injury or loc; Additional info: Eval for injury TECHNIQUE: Imaging protocol: Computed tomography of the head without contrast. Radiation optimization: All CT scans at this facility use at least one of these dose optimization techniques: automated exposure control; mA and/or kV adjustment per patient size (includes targeted exams where dose is matched to clinical indication); or iterative reconstruction. COMPARISON: CT head wo con* [id number] 01/24/2017 1:45 PM RADIATION DOSE METRICS: Total DLP (mGy-cm): 879.62 FINDINGS: Brain: Mild hypodensities in supratentorial periventricular and subcortical white matter, consistent with microangiopathy. No intracranial hemorrhage. Cerebral ventricles: No ventriculomegaly. Paranasal sinuses: Visualized sinuses are unremarkable. No fluid levels. Mastoid air cells: Visualized mastoid air cells are well aerated. Vasculature: No hyperdense artery. Bones/joints: Unremarkable. No acute fracture. Soft tissues: Unremarkable. CT/CT head wo con* [id number] IMPRESSION: No acute intracranial abnormality.
[2021-12-13 16:51] VITALS: BP 163/104; PULSE 103; RESP 16; TEMP 36.7; O2SAT 96
--- NOTE | 2021-12-13 17:00 | XRR_ITS ---
PROCEDURE INFORMATION: Exam: XR Left Hip Exam date and time: 12/13/2021 5:24 PM Age: 56 years old Clinical indication: Injury or trauma; Fall; Blunt trauma (contusions or hematomas); Left; Hip; Additional info: L hip pain TECHNIQUE: Imaging protocol: XR Left hip. Views: 2 or 3 views hip with pelvis when performed. COMPARISON: CR Hip 2-3v LEFT wwo Pelv* [id number] 09/21/2018 5:13 PM FINDINGS: Bones/joints: Unremarkable. No acute fracture. Soft tissues: Unremarkable. XR/XR hip LT 2-3V wo/w pel* [id number] IMPRESSION: No acute findings.
--- NOTE | 2021-12-13 17:13 | ED_ITS ---
HPI - Headache General: Chief Complaint: Headache Stated Complaint: Fell, Headache, N/V Time Seen by Provider: 12/13/21 16:59 Source: patient Mode of arrival: ambulatory Limitations: no limitations History of Present Illness: 56-year-old female presents emergency room with a left-sided migraine headache with nausea she has not had any vomiting. Is been going on for couple days she tried various cafb-[id number] remedies with no relief. In addition to that she tripped and fell at home 3 days ago and landed on her left hip she has tenderness over the greater trochanter. She has been able to bear weight and has been ambulatory. She is not had any focal neurologic deficits no difficulty speech swallowing no blurry vision she has been mildly photophobic when I came to the room she was using a smart phone with no difficulty. MD elicited complaint: headache Pertinent past history: migraines Onset (ago): day(s) (3) Onset description: gradually Quality & Timing: throbbing Exacerbating factors: other (Walking exacerbates hip pain as well as palpation) Relieving factors: rest (Left hip) Associated symptoms: Reports nausea; Deny chest pain, confusion, cough, diaphoresis, eye pain, eye redness, fever(s), lightheadedness, loss of vision, malaise, neck stiffness, numbness, paresthesias, photophobia, pre-syncope, rash, seizures, short of breath, sound sensitivity, syncope, vomiting or weakness Treatments prior to arrival: acetaminophen and ibuprofen Review of Systems Const: Denies: fever(s), chills, body aches, malaise or diaphoresis ENMT: Denies: throat pain, ear or mastoid pain, nasal discharge or nasal congestion Card: Denies: chest pain, lightheadedness, syncope or pre-syncope Resp: Denies: dyspnea or productive cough GI: Reports: nausea; Denies: vomiting : Denies: flank pain, difficulty voiding, dysuria, urinary frequency or urinary urgency Skin/Breast: Denies: rash Neuro: Denies: confusion PFSH ED PFSH: Medical History Diabetes Migraines Surgical History History of kidney transplant Family History Other Diabetes Social History Smoking and tobacco status: never smoked History of recent travel: No Physical Exam Const: COMMON NORMALS: no acute distress GENERAL APPEARANCE: cooperative and comfortable ORIENTATION/CONSCIOUSNESS: Yes awake, Yes oriented to person, Yes oriented to place and Yes oriented to time HENMT: COMMON NORMALS: normocephalic, atraumatic, hearing grossly normal bila terally, external ears normal, EAC's normal, TM's normal bilaterally and Normal nasal mucous membranes and turbinates present HEAD & SCALP: normocephalic and atraumatic NOSE: Normal nasal mucous membranes and turbinates present EXT ERNAL EAR: Yes external ears normal EXTERNAL AUDITORY CANAL: EAC's normal TYMPANIC MEMBRANE: TM's normal bilaterally Eye: COMMON NORMALS: Equal, round and reactive pupils present, EOMs intact bilaterally, conjunctivae normal and no scleral icterus CONJUNCTIVA: Yes conjunctivae normal PUPIL: Yes Equal, round and reactive pupils present DIRECT OPHTHALMOSCOPY: No photophobia Neck/C-Spine: COMMON NORMALS: full ROM, no lymphadenopathy, supple and no JVD Resp: COMMON NORMALS: normal respiratory effort, No retractions, No use of accessory muscles and clear to auscultation bilaterally AUSCULTATION: clear to auscultation bilaterally Cardio: COMMON NORMALS: no JVD, regular rate, regular rhythm and No murmurs pr esent (Cardio) RATE: regular rate RHYTHM: regular rhythm GI: COMMON NORMALS: Soft to palpation and No hepatosplenomegaly present AUSCULTATION: Yes normoactive bowel sounds PALPATION: Yes Soft to palpation, No Tenderness to palpation present (GI), No Guarding due to palpation present (GI) and Yes No hepatosplenomegaly present Extremity: COMMON NORMALS: normal to inspection, capillary refill normal, no clubbing, cyanosis or edema, no calf tenderness and no pedal edema OTHER: Point tenderness over the left greater trochanteric bursa Neuro: SENSORIUM/ORIENTATION: Yes oriented to person, Yes oriented to place and Yes oriented to time Skin: COMMON NORMALS: no rashes or lesions noted GENERAL SKIN EXAM: no rashes or lesions noted Course Vital Signs: Vital signs: Vital Signs Temperature 98.1 F 12/13/21 16:51 Pulse Rate 93 12/13/21 17:21 Respiratory Rate 16 12/13/21 17:21 Blood Pressure 152/99 12/13/21 17:21 Pulse Oximetry 98 12/13/21 17:21 MDM - Headache Medical Decision Making Neurologically intact no fractures CT head negative discharge patient home with anti-inflammatories ice to the hip follow-up with primary care if trochanteric bursitis persists they can pursue steroid injection. Medical Records I reviewed the patient's medical records. Lab Data I reviewed the patient's lab results. : 12/13/21 17:15 12/13/21 17:[address] 12/13/21 16:48 IMPRESSION: No acute intracranial abnormality. Hip/Pelvis X-Ray 12/13/21 17:00 IMPRESSION: No acute findings. Laboratory Results WBC 6.8 10^3/uL (4.0-10.0) 12/13/21 17:15 RBC 5.18 10^6/uL (4.1-5.3) 12/13/21 17:15 Hgb 15.0 g/dL (11.5-15.3) 12/13/21 17:15 Hct 44.8 % (37.0-47.0) 12/13/21 17:15 MCV 86.5 fl (81-99) 12/13/21 17:15 MCH 29.0 pg (28.0-34.0) 12/13/21 17:15 MCHC 33.5 g/dL (30.0-36.0) 12/13/21 17:15 RDW 12.3 % (12.1-15.1) 12/13/21 17:15 Plt Count 213 10^3/cmm (130-400) 12/13/21 17:15 MPV 11.1 fL (7.4-10.4) H 12/13/21 17:15 Neut % (Auto) 62.7 % 12/13/21 17:15 Lymph % (Auto) 29.2 % 12/13/21 17:15 [place] % (Auto) 6.7 % 12/13/21 17:15 Eos % (Auto) 0.7 % 12/13/21 17:15 Baso % (Auto) 0.4 % 12/13/21 17:15 Neut # (Auto) 4.23 10^3/uL (1.8-7.7) 12/13/21 17:15 Lymph # (Auto) 2.0 10^3/uL (0.8-4.8) 12/13/21 17:15 [place] # (Auto) 0.5 10^3/uL (0.2-0.9) 12/13/21 17:15 Eos # (Auto) 0.1 10^3/uL (0.0-0.8) 12/13/21 17:15 Baso # (Auto) 0.0 10^3/uL (0.0-0.1) 12/13/21 17:15 Nucleated RBC % (auto) 0 % 12/13/21 17:15 Nucleated RBCs # 0.0 /100WBC 12/13/21 17:15 Discharge Plan Discharge Patient Disposition: Home Clinical Impression: Fall, Trochanteric bursitis of left hip Condition: Stable Prescriptions: New diclofenac sodium 75 mg tablet,delayed release (DR/EC) 75 mg PO Q12H PRN (Reason: pain) Qty: 20 0RF No Action cyclobenzaprine 10 mg tablet 10 mg PO TID Qty: 14 0RF tramadol 50 mg tablet 50 mg PO Q6H PRN (Reason: pain) Qty: 14 0RF mycophenolate mofetil 200 mg/mL suspension for reconstitution See Rx Instructions .ROUTE .COMPLEX 0RF Rx Instructions: 1/2 tsp po bid tacrolimus 1 mg capsule See Rx Instructions .ROUTE .COMPLEX 0RF Rx Instructions: 2mg po qam and 1mg po qpm insulin aspart U-100 [Novolog Flexpen U-100 Insulin] 100 unit/mL (3 mL) Insulin Pen See Rx Instructions .ROUTE .COMPLEX 0RF Rx Instructions: sliding scale with meals Lantus Solostar U-100 Insulin 100 unit/mL (3 mL) insulin pen 30 unit SUBCUT BEDTIME 0RF Discharge Orders: Discharge ED (Routine); Ordered 12/13/21 Ordered By: Sean Ross Referrals: Celi Horne PA [Primary Care Provider] - Discharge Diet: Usual diet Discharge Activity: Increase activity as tolerated Patient Instructions: Hip Bursitis (ED), Opioid Safety Activity Restrictions/Additional Instructions: Follow-up with your primary care doctor if not improving Coding Level of Care Code ED Respiratory Therapy Aide for Chg Fwd Exam Comprehensive
[2021-12-13 17:21] VITALS: BP 152/99; PULSE 93; RESP 16; O2SAT 98
[2021-12-13 17:25] LABS: Basophils % 0.4 %; Eosinophils # 0.1 10^3/uL (0.0-0.8); Eosinophils % 0.7 %; Hematocrit 44.8 % (37.0-47.0); Lymphocytes % 29.2 %; Mean Corpuscular HGB Conc 33.5 g/dL (30.0-36.0); Mean Corpuscular Volume 86.5 fl (81-99); Mean Platelet Volume 11.1 fL (7.4-10.4); Monocytes # 0.5 10^3/uL (0.2-0.9); Monocytes % 6.7 %; Neutrophils # 4.23 10^3/uL (1.8-7.7); Neutrophils % 62.7 %; Nucleated Red Blood Cells % 0 %; Platelet Count 213 10^3/cmm (130-400); Red Blood Count 5.18 10^6/uL (4.1-5.3); Red Cell Distribution Width 12.3 % (12.1-15.1); White Blood Count 6.8 10^3/uL (4.0-10.0)
[2021-12-13] MEDS: ketorolac 30 mg/mL INJ IVP (17:43)
[2021-12-13] MEDS: promethazine 25 mg/mL SDV 1 mL IM (17:43)
--- NOTE | 2021-12-13 17:44 | PC.NURSE ---
Patient states her head still hurts, medication given, will reassess in 30 minutes.
[2021-12-13 17:53] LABS: Alanine Aminotransferase 22 U/L (0-33); Albumin Level 4.2 g/dL (3.5-5.2); Alkaline Phosphatase 339 IU/L (35-105); Anion Gap 15.8 (5-19); Aspartate Amino Transferase 23 U/L (0-32); Blood Urea Nitrogen 9 mg/dL (6-20); Calcium 10.3 mg/dL (8.5-10.5); Carbon Dioxide 26 mmol/L (22-29); Chloride 95 mmol/L (98-107); Globulin 3.7 g/dL (1.3-4.6); Glomerular Filtration Rate 127.2 mL/min (90-130); Osmolality Calculated 299 mOsm/kg (285-295); Potassium 3.8 mmol/L (3.5-5.1); Sodium 133 mmol/L (136-145); Total Bilirubin 0.2 mg/dL (0.15-1.2); Total Protein 7.9 g/dL (6.6-8.7)
[2021-12-13 18:11] LABS: Glucose 538 mg/dL (65-115)
[2021-12-13 18:21] VITALS: BP 146/96; PULSE 110; RESP 14; O2SAT 97
== END 2021-12-13 18:24 | disposition home or self-care (01) ==
PROVIDERS: Emergency Medicine; Emergency Provider Family Medicine; PCP Physician Assistant
DX: M70.62 Trochanteric bursitis, left hip (principal); R51.9 Headache, unspecified
CPT/HCPCS: 70450; 73502; 80053; 85025; 96372; 96374; 99284; J1885; J2550

== ENCOUNTER → 2021-12-24 09:02 | Outpatient (BNVA) | payer MEDICAID, SELFPAY | PROVIDERS: PCP Physician Assistant; Referring Provider Nurse Practitioner Family; Visit Provider Specialist | DX: M65.341 Trigger finger, right ring finger (principal) | CPT/HCPCS: 73130; 99204 ==

== ENCOUNTER 2022-01-02 05:54 | Day surgery (SDC) | payer MEDICAID, SELFPAY ==
[2022-01-01 11:09] VITALS: BMI 20.3
[2022-01-02] VITALS (8 sets, daily range): BP systolic 85–157; BP diastolic 44–98; PULSE 81–107; RESP 14–16; TEMP 36.2–36.6; O2SAT 90–97
[2022-01-02 06:25] LABS: Glucose Point of Care 378 mg/dL (70-110)
[2022-01-02] MEDS: sodium chloride 0.9% 1,000 ML 30 ML IV (06:28)
[2022-01-02] MEDS: acetaminophen 1,000 MG/100 ML PIGGYBACK 400 MG IV (06:28)
[2022-01-02] MEDS: famotidine 20 mg/2 mL INJ IVP (06:51)
[2022-01-02] MEDS: insulin regular-human 100 units/1 mL 10 UNIT IVP (06:52)
--- NOTE | 2022-01-02 06:53 | P.ANESASSM_ITS ---
Pre-Anesthetic Assessment Height/Weight: Height 1.6 m Weight 52.163 kg Temp Pulse Resp BP Pulse Ox 97.8 F 107 H 16 151/98 97 01/02/22 06:08 01/02/22 06:08 01/02/22 06:08 01/02/22 06:08 01/02/22 06:08 Preop Diagnosis: Right ring finger triggering Operation Date: 01/02/22 07:00 Proposed Procedures p RIGHT RING FINGER TRIGGER FINGER RELEASE [id number]/M79.643(Right) - Bee Baumann MD Familial anesthetic complications: none Was Beta Princess taken within 24 hours: N/A Was Clonidine taken within 24 hours: N/A Last intake: Intake Last Liquid Date 01/01/22 Last Liquid Time 22:00 Last Solid Date 01/01/22 Last Solid Time 17:00 Social No alcohol and No tobacco Exam alert, oriented x 3, clear to auscultation bilaterally and regular rate & rhythm Airway Submandibular: within normal limits Cervical ROM: Other Mallampati: Class II Dentition: chipped Comments: Comments: very poor dentition missing multiple teeth History/ROS No significant complaints Pulmonary Chronic Obstructive Pulmonary Disease CV/HEM None reported s/p renal transplant x 2 patient cannot recall the reason Hepatic None reported GI Gastroesophageal Reflux Disease Metabolic Diabetes Mellitus Musc/skel trigger finger Neuropsych Neuropathy (hx of unlar neuropathy ) Anesthetic Plan ASA status: 3 Anesthesia: Anesthesia Evaluation, General, MAC and Regional (specify below) (Fernandez block) Other: We discussed risk and benefits of general, MAC, and regional (Fernandez block) anesthesia including PONV, sore throat (sometimes severe), corneal abrasion, positioning and peripheral nerve injuries, life threatening allergic reaction, LAST, post operative ICU admission requiring prolonged intubation, stroke, heart attack, , failed block, tourniquet pain/discomfort, possibility of recall of intraoperative stimuli including discomfort/pain/pressure. Patient consents to proceed with MAC and [place] block anesthesia with conversion to general if needed. Risk of > 500 ml blood loss (7ml/kg in children): No Medications/Allergies Home Medications Medication Instructions Recorded Confirmed Last Taken Type insulin aspart U-100 100 unit/mL See Rx Instructions .ROUTE .COMPLEX 01/26/20 01/02/22 01/01/22 History (3 mL) subcutaneous pen (Novolog Flexpen U-100 Insulin aspart) insulin glargine 100 unit/mL (3 30 unit SUBCUT BEDTIME 01/26/20 01/02/22 01/01/22 History mL) subcutaneous pen (Lantus Solostar U-100 Insulin) tacrolimus 1 mg capsule, See Rx Instructions .ROUTE .COMPLEX 01/26/20 01/01/22 02/17/20 History immediate-release cyclobenzaprine 10 mg tablet 10 mg PO TID #14 tab 07/03/21 01/01/22 Unknown Rx tramadol 50 mg tablet 50 mg PO Q6H PRN #14 tab 07/03/21 01/01/22 Unknown Rx diclofenac sodium 75 mg 75 mg PO Q12H PRN #20 tab 12/13/21 01/01/22 Unknown Rx tablet,delayed release Allergies Allergy/AdvReac Type Severity Reaction Status Date / Time diazepam [From Valium] Allergy Unknown Verified 01/01/22 11:17 nalbuphine [From Nubain] Allergy Unknown Verified 01/01/22 11:17 Current Medications Generic Name Dose Route Start Last Admin Trade Name Freq PRN Reason Stop Dose Admin Sodium Chloride 1,000 mls @ 30 mls/hr 01/02/22 06:00 01/02/22 06:28 Sodium Chloride 0.9% IV 01/03/22 05:59 30 mls/hr .Q24H ROSALINDA Administration PFSH Anesthesia Medical History Diabetes Migraines Surgical History History of kidney transplant Family History Other Diabetes Social History Smoking and tobacco status: never smoked History of recent travel: No Data Anesthesia Cardiac Studies: No Data to Display
--- NOTE | 2022-01-02 06:58 | P.HPUD_ITS ---
Surgery/Procedure H&P Update DATE OF PROCEDURE: January 02, 2022 DATE H&P PERFORMED: 12/24/21 H&P UPDATE INFORMATION: I have reviewed H&P completed within last 30 days, I have examined patient prior to procedure, No changes to prior documentation and [place] [facility] indicated PREOP DIAGNOSIS: Right ring finger triggering PLANNED PROCEDURE: Operation Date: 01/02/22 07:00 Proposed Procedures p RIGHT RING FINGER TRIGGER FINGER RELEASE [id number]/M79.643(Right) - Bee Baumann MD Related Problem List Diagnoses (1) Trigger finger of right hand: Qualifiers: Trigger finger location: ring finger Qualified Code(s): M65.341 - Trigger finger, right ring finger
--- NOTE | 2022-01-02 08:06 | P.OP_ITS ---
Operative Report Date of procedure: January 02, 2022 Pre-op diagnosis: Right ring finger triggering Post-op diagnosis: Right ring finger triggering Procedure done: Release right ring trigger finger Pathology: none sent Surgeon: Bee Baumann Training And Development Coordinator: None Anesthesia: MAC (With [place] block, ASA 3) Estimated blood loss (mL): 2 Tourniquet time (min): 32 (At 250 mmHg) IV fluids (mL): 500 Urine output (mL): 0 (No Castro) Complications: None Condition: stable Disposition: PACU (Then to same-day surgery for discharge to home) Brief History: This is a new 56 year old female patient who was seen in my office for evaluation of right hand pain. Patient states the hand pain started about a month or two ago. Patient states that the pain starts in her right ring finger and radiates up the arm. Patient describes the pain as hurts and sharp . Patient states that her finger stays locked the majority of the time. Patient states she cannot extend the finger without manual use of the other hand. At the time of her office visit, we discussed trigger finger release. Risks and complications were discussed, questions were answered, and the patient signed consents for surgery. Procedure: Patient was brought to the operating theater. She was placed on the operating room table. A Fernandez block was administered without difficulty. Patient tolerated it well. 2 g of Ancef was administered. A tourniquet was placed high on the arm and was elevated for the Fernandez block. Tourniquet time was 32 minutes at 250 mmHg. Surgical pause was performed prior to commencement of the surgical procedure. At the time of the surgical pause we identified the site and side of surgery including preoperative surgical markings. We also identified the patient's identity and appropriate administration of IV antibiotics. Following the surgical pause, an incision was made [along the distal palmar crease beneath the ring finger. Dissection continued through the skin to the subcutaneous tissues using a scalpel. Blunt dissection was then utilized to spread soft tissues and allow access to the A1 benitez. It was then incised longitudinally and sharply using a knife. This was accomplished without difficulty and atraumatically. Once the A1 benitez was released, tendons were brought up out of the wound and evaluated. There were no gross masses on the ten dons. Tendons were returned to normal position. We then irrigated the wound and subsequently closed it with 3-0 nylon with an interrupted mattress type suture. Following closure of the wound, the wound was injected with 3 mL of bupivacaine into the subcutaneous tissues as a local anesthetic. Sterile dressing was then placed consisting of Dermabond, OpSite, fluffed fluffs, sterile soft roll, and a n Valentin wrap. The patient was returned to recovery in satisfactory condition. She will be discharged home to follow-up with me in the office. There were no complications and no specimens. Related Problem List Diagnoses (1) Trigger finger of right hand:
[2022-01-02] MEDS: ondansetron 2 mg/ML SDV 2 mL 4 MG IVP (08:07)
--- NOTE | 2022-01-02 08:38 | SUR.PHASEII ---
0807 Received from pacu and pt states she feels sick to her stomach and feels nauseated,08 zofran 4mg iv given per anesthesia protocol,08 pt states she is still nauseated and spoke to dr guadarrama(anesthesiologist) for additional order for nausea,08 promethazine order and spoke to pt and daughter regarding this rx and has taken it before and is willing to take to get rid of nausea
[2022-01-02] MEDS: promethazine 25 mg/mL SDV 1 mL 12.5 MG IM (08:46)
--- NOTE | 2022-01-02 09:38 | SUR.PHASEII ---
0921 dr guadarrama to bedside and pt still c/o nausea,order to give scop patch and benadryl and pt and daughter refused at this time
[2022-01-02] MEDS: diphenhydrAMINE 50 mg/mL SDV 1mL 12.5 MG IVP (10:42)
[2022-01-02] MEDS: scopolamine 1.5 Patch 1 PATCH TRANSDERMA (10:45)
--- NOTE | 2022-01-02 12:11 | SUR.PHASEII ---
1115 pt states she is feeling better and stated she would try to eat some crackers,didn't tolerate crackers but would try pudding and pudding given and tolerated well. pt stated she feels better and is no longer nauseated
--- NOTE | 2022-01-02 16:41 | ANE.PACU2 ---
Inpatient post-anesthesia follow up: Airway intact: Yes Vital signs: Temperature 98 F Pulse Rate 81 Respiratory Rate 15 Blood Pressure 156/76 Pulse Oximetry 93 Oxygen Delivery Me thod Room Air Oxygen Flow Rate 6 Fraction of Inspir ed Oxygen Hydration adequate: Yes Nausea and vomiting: Yes (Resolved with diphenhydramine, scopalamine, promethazine ) Pain level: 3 Mental status: Baseline
== END 2022-01-02 11:46 | disposition home or self-care (01) ==
PROVIDERS: PCP Physician Assistant; Visit Provider Specialist
PROC: (CPT 26055; principal; 2022-01-02 07:00)
DX: M65.341 Trigger finger, right ring finger (principal); J44.9 Chronic obstructive pulmonary disease, unspecified; E11.40 Type 2 diabetes mellitus with diabetic neuropathy, unspecified; Z79.4 Long term (current) use of insulin
CPT/HCPCS: 26055; 36416; 82962; J1200; J1815; J2250; J2405; J2550; J2704; J3010; J3490; J7030

== ENCOUNTER 2022-02-06 16:09 | Emergency (ER) | payer MEDICAID, SELFPAY ==
[2022-02-06 16:37] VITALS: BP 129/89; PULSE 91; RESP 18; TEMP 37.1; O2SAT 96; BMI 20.3
[2022-02-06 17:35] LABS: Basophils # 0.1 10^3/uL (0.0-0.1); Basophils % 0.8 %; Eosinophils # 0.1 10^3/uL (0.0-0.8); Eosinophils % 1.3 %; Hematocrit 41.7 % (37.0-47.0); Hemoglobin 14.7 g/dL (11.5-15.3); Lymphocytes # 2.5 10^3/uL (0.8-4.8); Lymphocytes % 33.7 %; Mean Corpuscular HGB Conc 35.3 g/dL (30.0-36.0); Mean Corpuscular Hemoglobin 29.3 pg (28.0-34.0); Mean Corpuscular Volume 83.2 fl (81-99); Mean Platelet Volume 11.3 fL (7.4-10.4); Monocytes # 0.4 10^3/uL (0.2-0.9); Monocytes % 5.2 %; Neutrophils % 58.9 %; Nucleated Red Blood Cells % 0 %; Platelet Count 231 10^3/cmm (130-400); Red Blood Count 5.01 10^6/uL (4.1-5.3); Red Cell Distribution Width 12.2 % (12.1-15.1); White Blood Count 7.5 10^3/uL (4.0-10.0)
[2022-02-06 17:53] LABS: Anion Gap 16.4 (5-19); Blood Urea Nitrogen 8 mg/dL (6-20); Carbon Dioxide 24 mmol/L (22-29); Chloride 95 mmol/L (98-107); Glomerular Filtration Rate 127.2 mL/min (90-130); Glucose 475 mg/dL (65-115); Osmolality Calculated 291 mOsm/kg (285-295); Potassium 4.4 mmol/L (3.5-5.1); Sodium 131 mmol/L (136-145)
--- NOTE | 2022-02-06 18:19 | ED_ITS ---
HPI - General Adult General: Chief complaint: General Medical Stated complaint: headache, N/V Time Seen by Provider: 02/06/22 16:56 History of Present Illness: Patient is a 56-year-old female with history of migraine, diabetes who presents the emergency room with worsening headache over the last 3 days. Patient tells me that she has been having a headache that woke her up 3 days ago. Since then, patient has the headache has gotten worse over the last 3 days. She has never had a headache lasting this long. Patient reports bilateral neck pain and posterior scalp pain. Patient tells me that headaches very similar to her previous headache over this the longest headache that she has had in a long time. Patient reports intermittent nausea vomiting denies any fever chills, focal neurological deficits. Patient has no family history of aneurysms. Patient denies that this headache is not worst headache of life and sudden in onset. The headache did not reach maximal intensity over first 1-2 hours. Denies nauesea/vomiting, fever/chill, chest pain, shortness of breath, abdominal pain, dysuria/hematuria/polyuria, diarrhea/melena/hematochezia. Onset:3 days aog Duration:3 days Location:home Severity:moderate Associated symptoms: Reports headache(s), nausea and vomiting; Deny chest pain, dyspnea, rash or palpitations Review of Systems Const: Denies: fever(s) or chills Eyes: Denies: change in vision ENMT: Denies: mouth pain Card: Denies: chest pain or palpitations Resp: Denies: dyspnea or non-productive cough GI: Reports: nausea and vomiting; Denies: abdominal pain or diarrhea : Denies: dysuria Musc: Denies: extremity pain Skin/Breast: Denies: rash or new lesions Neuro: Reports: headache(s); Denies: weakness in extremities Psych: Reports: other (Normal mood) James/Lymph: Denies: easy bruising PFSH ED PFSH: Medical History Diabetes Migraines Surgical History History of kidney transplant Family History Other Diabetes Social History Smoking and tobacco status: never smoked History of recent travel: No Physical Exam Const: COMMON NORMALS: alert HENMT: COMMON NORMALS: atraumatic HEAD & SCALP: atraumatic MOUTH: moist mucous membranes not abnormal Eye: COMMON NORMALS: EOMs intact bilaterally and conjunctivae normal CONJUNCTIVA: Yes conjunctivae normal Neck/C-Spine: COMMON NORMALS: full ROM and supple Resp: COMMON NORMALS: normal respiratory effort and clear to auscultation bilaterally AUSCULTATION: clear to auscultation bilaterally Cardio: COMMON NORMALS: regular rate RATE: regular rate GI: COMMON NORMALS: Soft to palpation and non-tender PALPATION: Yes Soft to palpation Extremity: COMMON NORMALS: full ROM Neuro: SENSORIUM/ORIENTATION: Yes alert MOTOR EXAM: No Abnormal motor strength present and Other motor observations present (no focal motor deficits) Psych: COMMON NORMALS: speech normal SPEECH: Yes normal speech MOOD & AFFECT: Yes euthymic mood Course Vital Signs: Vital signs: Vital Signs Temperature 98.7 F 02/06/22 16:37 Pulse Rate 80 02/06/22 22:07 Respiratory Rate 16 02/06/22 22:07 Blood Pressure 152/86 02/06/22 22:07 Pulse Oximetry 97 02/06/22 22:07 MDM - General Adult Medical Decision Making Patient is a 56-year-old female with history of migraine, diabetes who presents the emergency room with worsening headache over the last 3 days. Patient tells me that she has been having a headache that woke her up 3 days ago. Physical exam, patient is neurologically intact. No meningismus sign today. WBC of 7.5 today. Patient is noted to have glucose 475. Patient received IVF and headache cocktail with improvement in headache. CT head showed unchanged heterogeneous lesion at the calvarium compared to prior. I doubt that this is subarachnoid bleed given the fact the patient has not had worse headache of here life, headaches associate with other symptoms, has no family history of aneurysm. I have offered CTA head/neck since headache is different from prior, however patient declined citing that she has a history of renal transplant. Patient would not like to be exposed to contrast. I told her that her evaluation is limited today. Verbalized the understanding of the risk of not undergoing CT evaluation including evaluation for aneurysm or other type of pathologies at this time. Patient verbalized understanding the risk includes worsening headache neurological deficits, or even possible and elects for the alternative of not obtaining a CTA evaluation today. Patient reports that her headache improved after pain medications. Incidental findings of calvarial changes discussed extensively with patient. Patient received a copy of the CT report with the documented findings. Patient is instructed to follow up urgently with specialists. I have given patient follow up with our bilingual patient support caseworker to be seen by our outpatient Neurology for calvarial changes. Patient aware of a call from our bilingual patient support caseworker to schedule for appointment(s) and verbalizes understanding of the importance of following up. Rx: Magnesium oxide, Tylenol, Reglan as needed for headache Disposition: Discharge. Patient counseled regarding diagnostic impression, treatment plan. Patient given ED strict return precautions to return for con tinuation, worsening, or development of new symptoms. Instructed to f/u w/ PCP regarding symptoms today. Patient verbalized understanding. Lab Data : 02/06/22 17:30 02/06/22 17:[address] 02/06/22 18:40 IMPRESSION: 1. Unchanged heterogeneous calvarium, of uncertain etiology, correlate for neoplastic, or endocrine causes. 2. No acute intracranial abnormality. Laboratory Results WBC 7.5 10^3/uL (4.0-10.0) 02/06/22 17:30 RBC 5.01 10^6/uL (4.1-5.3) 02/06/22 17:30 Hgb 14.7 g/dL (11.5-15.3) 02/06/22 17:30 Hct 41.7 % (37.0-47.0) 02/06/22 17:30 MCV 83.2 fl (81-99) 02/06/22 17:30 MCH 29.3 pg (28.0-34.0) 02/06/22 17:30 MCHC 35.3 g/dL (30.0-36.0) 02/06/22 17:30 RDW 12.2 % (12.1-15.1) 02/06/22 17:30 Plt Count 231 10^3/cmm (130-400) 02/06/22 17:30 MPV 11.3 fL (7.4-10.4) H 02/06/22 17:30 Neut % (Auto) 58.9 % 02/06/22 17:30 Lymph % (Auto) 33.7 % 02/06/22 17:30 Ward % (Auto) 5.2 % 02/06/22 17:30 Eos % (Auto) 1.3 % 02/06/22 17:30 Baso % (Auto) 0.8 % 02/06/22 17:30 Neut # (Auto) 4.40 10^3/uL (1.8-7.7) 02/06/22 17:30 Lymph # (Auto) 2.5 10^3/uL (0.8-4.8) 02/06/22 17:30 Ward # (Auto) 0.4 10^3/uL (0.2-0.9) 02/06/22 17:30 Eos # (Auto) 0.1 10^3/uL (0.0-0.8) 02/06/22 17:30 Baso # (Auto) 0.1 10^3/uL (0.0-0.1) 02/06/22 17:30 Nucleated RBC % (auto) 0 % 02/06/22 17: Nucleated RBCs # 0.0 /100WBC 02/06/22 17:30 Sodium 131 mmol/L (136-145) L 02/06/22 17:30 Potassium 4.4 mmol/L (3.5-5.1) 02/06/22 17:30 Chloride 95 mmol/L (98-107) L 02/06/22 17:30 Carbon Dioxide 24 mmol/L (22-29) 02/06/22 17:30 Anion Gap 16.4 (5-19) 02/06/22 17:30 BUN 8 mg/dL (6-20) 02/06/22 17:30 Creatinine 0.5 mg/dL (0.5-0.9) 02/06/22 17:30 GFR Calculation 127.2 mL/min (90-130) 02/06/22 17:30 Glucose 475 mg/dL (65-115) H 02/06/22 17:30 Calculated Osmolality 291 mOsm/kg (285-295) 02/06/22 17:30 Calcium 10.0 mg/dL (8.5-10.5) 02/06/22 17:30 Urine Color Yellow (Yellow) 02/06/22 20:10 Urine Appearance Clear (CLEAR) 02/06/22 20:10 Urine pH 5 (5-7) 02/06/22 20:10 Ur Specific [place] 1.010 (1.005-1.030) 02/06/22 20:10 Urine Protein Neg (Negative) 02/06/22 20:10 Urine Glucose (UA) 4+ (Normal) H 02/06/22 20:10 Urine Ketones 1+ (Negative) H 02/06/22 20:10 Urine Blood Neg (Negative) 02/06/22 20:10 Urine Nitrate Negative (Negative) 02/06/22 20:10 Urine Bilirubin Neg (Negative) 02/06/22 20:10 Urine Urobilinogen Norm mg/dL (Negative) 02/06/22 20:10 Ur Leukocyte Esterase Negative (Negative) 02/06/22 20:10 Imaging Data Other Imaging: Radiologist's impression: [facility] [address] [address] Scan Report Signed Patient: Franklin Farah Unit #: [id number] : 1965 Age/Sex: 56 / F ADM Date: 02/06/22 Loc: ER Room/Bed: Attending Dr: Ordering Provider/Ordering MD: Valerie Mckinney MD Date of Service: 02/06/22 Procedure(s): CT head con* [id number] Accession Number(s): [id number] Report Number: [id number] PROCEDURE INFORMATION: Exam: CT Head Without Contrast Exam date and time: 02/06/2022 9:18 PM Age: 56 years old Clinical indication: Pain; Headache TECHNIQUE: Imaging protocol: Computed tomography of the head without contrast. Radiation optimization: All CT scans at this facility use at least one of these dose optimization techniques: automated exposure control; mA and/or kV adjustment per patient size (includes targeted exams where dose is matched to clinical indication); or iterative reconstruction. COMPARISON: 1. CT head wo con* [id number] 2021-12-13 17:[address] head wo con* [id number] 2017-01-24 13:45 RADIATION DOSE METRICS: Total DLP (mGy-cm): 864.64 FINDINGS: Brain: Normal. No hemorrhage. Unremarkable white matter. No mass effect. Cerebral ventricles: No ventriculomegaly. Paranasal sinuses: Visualized sinuses are unremarkable. No fluid levels. Mastoid air cells: Visualized mastoid air cells are well aerated. Bones/joints: Unchanged heterogeneous calvarium, uncertain etiology, correlate for neoplastic, or endocrine causes. Soft tissues: Unremarkable. CT/CT head wo con* [id number] IMPRESSION: 1. Unchanged heterogeneous calvarium, of uncertain etiology, correlate for neoplastic, or endocrine causes. 2. No acute intracranial abnormality. ? Dictated By: Azeem Hanley MD Signed By: Azeem Hanley MD Signed Date/Time: 02/06/222133 DD/ 17 Discharge Plan Discharge Patient Disposition: Home Clinical Impression: Headache, Nausea & vomiting Condition: Stable Prescriptions: New magnesium oxide 400 mg magnesium capsule 400 mg PO DAILY PRN (Reason: headache) 10 Days Qty: 10 0RF No Action cyclobenzaprine 10 mg tablet 10 mg PO TID Qty: 14 0RF tramadol 50 mg tablet 50 mg PO Q6H PRN (Reason: pain) Qty: 14 0RF tacrolimus 1 mg capsule See Rx Instructions .ROUTE .COMPLEX 0RF Rx Instructions: 2mg po qam and 1mg po qpm insulin aspart U-100 [Novolog Flexpen U-100 Insulin] 100 unit/mL (3 mL) Insulin Pen See Rx Instructions .ROUTE .COMPLEX 0RF Rx Instructions: sliding scale with meals Lantus Solostar U-100 Insulin 100 unit/mL (3 mL) insulin pen 30 unit SUBCUT BEDTIME 0RF diclofenac sodium 75 mg tablet,delayed release (DR/EC) 75 mg PO Q12H PRN (Reason: pain) Qty: 20 0RF Discharge Orders: Discharge ED (Routine); Ordered 02/06/22 Ordered By: Valerie Mckinney Referrals: Celi Horne PA [Primary Care Provider] - Discharge Diet: Advance as tolerated Discharge Activity: Increase activity as tolerated Patient Instructions: Acute Headache (ED) Activity Restrictions/Additional Instructions: Please come back to the emergency room you have any fever chills, worsening headache, focal weakness, nausea/vomiting, inability to perform daily activity, or any new concerning complaints. Our bilingual patient support caseworker will have you follow-up with Neurology in the next few days for CT scan below. You would be expected to have a phone call with our bilingual patient support caseworker who will put you on the schedule. You can expect a call from us in the next 2-3 days. If you don't hear from us, call us back in the emergency room at [phone]. Here's a copy of your CT report: [facility] [address] [place] [address] [id number] [address] Scan Report Signed Patient: Franklin Farah Unit #: [id number] : 1965 Age/Sex: 56 / F ADM Date: 02/06/22 Loc: ER Room/Bed: Attending Dr: Ordering Provider/Ordering MD: Valerie Mckinney MD Date of Service: 02/06/22 Procedure(s): CT head wo con* [id number] Accession Number(s): [id number] Report Number: [id number] PROCEDURE INFORMATION: Exam: CT Head Without Contrast Exam date and time: 02/06/2022 9:18 PM Age: 56 years old Clinical indication: Pain; Headache TECHNIQUE: Imaging protocol: Computed tomography of the head without contrast. Radiation optimization: All CT scans at this facility use at least one of these dose optimization techniques: automated exposure control; mA and/or kV adjustment per patient size (includes targeted exams where dose is matched to clinical indication); or iterative reconstruction. COMPARISON: 1. CT head wo con* [id number] 2021-12-13 17:[address] head wo con* [id number] 2017-01-24 13:45 RADIATION DOSE METRICS: Total DLP (mGy-cm): 864.64 FINDINGS: Brain: Normal. No hemorrhage. Unremarkable white matter. No mass effect. Cerebral ventricles: No ventriculomegaly. Paranasal sinuses: Visualized sinuses are unremarkable. No fluid levels. Mastoid air cells: Visualized mastoid air cells are well aerated. Bones/joints: Unchanged heterogeneous calvarium, uncertain etiology, correlate for neoplastic, or endocrine causes. Soft tissues: Unremarkable. CT/CT head wo con* [id number] IMPRESSION: 1. Unchanged heterogeneous calvarium, of uncertain etiology, correlate for neoplastic, or endocrine causes. 2. No acute intracranial abnormality. ? Dictated By: Azeem Hanley MD Signed By: Azeem Hanley MD Signed Date/Time: 02/06/222133 DD/ 17 Coding Level of Care Code ED Hand Loom Weaver for Chg Fwd Exam Comprehensive
--- NOTE | 2022-02-06 18:40 | CTR_ITS ---
PROCEDURE INFORMATION: Exam: CT Head Without Contrast Exam date and time: 02/06/2022 9:18 PM Age: 56 years old Clinical indication: Pain; Headache TECHNIQUE: Imaging protocol: Computed tomography of the head without contrast. Radiation optimization: All CT scans at this facility use at least one of these dose optimization techniques: automated exposure control; mA and/or kV adjustment per patient size (includes targeted exams where dose is matched to clinical indication); or iterative reconstruction. COMPARISON: 1. CT head wo con* [id number] 2021-12-13 17:[address] head wo con* [id number] 2017-01-24 13:45 RADIATION DOSE METRICS: Total DLP (mGy-cm): 864.64 FINDINGS: Brain: Normal. No hemorrhage. Unremarkable white matter. No mass effect. Cerebral ventricles: No ventriculomegaly. Paranasal sinuses: Visualized sinuses are unremarkable. No fluid levels. Mastoid air cells: Visualized mastoid air cells are well aerated. Bones/joints: Unchanged heterogeneous calvarium, uncertain etiology, correlate for neoplastic, or endocrine causes. Soft tissues: Unremarkable. CT/CT head wo con* [id number] IMPRESSION: 1. Unchanged heterogeneous calvarium, of uncertain etiology, correlate for neoplastic, or endocrine causes. 2. No acute intracranial abnormality.
[2022-02-06] MEDS: magnesium sulfate premix 2 GM/50 ML PIGGYBACK IV (19:11)
[2022-02-06] MEDS: diphenhydrAMINE 50 mg/mL SDV 1mL IVP (19:12)
[2022-02-06] MEDS: metoclopramide 5 mg/mL SDV 2 mL 10 MG IVP (19:12)
[2022-02-06] MEDS: sodium chloride 0.9% 1,000 ML 999 ML IV (19:12)
[2022-02-06 20:49] VITALS: BP 121/81; PULSE 80; RESP 18; O2SAT 98
[2022-02-06 20:50] LABS: Add Urine Microscopic? NO; Charge for UA Resulting for Rev
[2022-02-06 21:00] LABS: Bilirubin Urine Neg (Negative); Blood Urine Neg (Negative); Glucose Urine UA 4+ (Normal); Ketones Urine 1+ (Negative); Leukocyte Esterase Urine Negative (Negative); Nitrate Urine Negative (Negative); Protein Urine Neg (Negative); Urine Appearance Clear (CLEAR); Urine Color Yellow (Yellow); Urobilinogen Urine Norm (Negative); pH Urine 5 (5-7)
[2022-02-06 21:46] VITALS: RESP 16
[2022-02-06] MEDS: morphine 4 mg/mL SDV 1 mL IVP (21:46)
[2022-02-06 22:07] VITALS: BP 152/86; PULSE 80; RESP 16; O2SAT 97
--- NOTE | 2022-02-10 13:23 | DCPLANNER ---
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 Original Note: real estate development manager had message to schedule a follow up appointment for patient with neurology. real estate development manager sent patients information to the front office staff at neurology. Patients information will be printed and reviewed. Clinic will call patient with appointment information.
== END 2022-02-06 22:10 | disposition home or self-care (01) ==
PROVIDERS: Family Medicine; Emergency Provider Emergency Medicine; PCP Physician Assistant
DX: R51.9 Headache, unspecified (principal); R11.2 Nausea with vomiting, unspecified; Z79.4 Long term (current) use of insulin; E11.9 Type 2 diabetes mellitus without complications
CPT/HCPCS: 70450; 80048; 81003; 85025; 96365; 96375; 99284; J1200; J2270; J2765; J3475; J7030

== ENCOUNTER → 2022-02-18 11:08 | Outpatient (BNVA) | payer MEDICAID, SELFPAY | PROVIDERS: PCP Physician Assistant; Visit Provider Specialist | DX: M65.341 Trigger finger, right ring finger (principal) | CPT/HCPCS: 99024 ==

== ENCOUNTER 2022-07-07 20:32 | Emergency (ER) | payer MEDICAID, SELFPAY ==
[2022-07-07 20:39] VITALS: BP 138/89; PULSE 109; RESP 16; TEMP 36.7; O2SAT 95
--- NOTE | 2022-07-07 21:02 | XRR_ITS ---
PROCEDURE INFORMATION: Exam: XR Lumbosacral Spine Exam date and time: 07/07/2022 9:21 PM Age: 56 years old Clinical indication: Low back pain TECHNIQUE: Imaging protocol: Radiologic exam of the lumbosacral spine. Views: 2 or 3 views. COMPARISON: CT Abdomen/Pelvis Renal [id number] 06/19/2018 5:39 PM FINDINGS: Bones/joints: Vertebral body height is maintained. No subluxation. Bones are diffusely osteopenic. No acute fracture. Mild degenerative changes of the right and left sacroiliac joints. Stable multilevel degenerative changes of varying severity in the visualized spine. No acute fracture. Soft tissues: No paravertebral soft tissue abnormality. No radiopaque foreign body. Lungs: Calcified injection granulomas over the left gluteal region. Organs: Pancreas: Pancreatic parenchymal calcifications, consistent with sequela of chronic pancreatitis. XR/XR lumbar spine 2-3V* [id number] IMPRESSION: 1. No acute fracture of the lumbar spine. CT scan would be recommended if there is continuing clinical concern for fracture. 2. Stable multilevel degenerative changes of varying severity in the visualized spine. 3. Mild degenerative changes of the right and left sacroiliac joints. 4. Incidental/nonacute findings are listed in the report.
[2022-07-07] MEDS: methocarbamol 750 mg Tablet PO (21:12)
--- NOTE | 2022-07-07 21:25 | ED_ITS ---
HPI - Back Pain/Injury General: Chief Complaint: Back Pain/Injury Stated Complaint: Lower Back Pain Time Seen by Provider: 07/07/22 20:42 History of Present Illness: Patient is in today for low back pain. She reports that since Wednesday she has been having low back pain radiating down both lower legs. She reports that it feels like a squeezing grabbing type pain that comes and goes. She reports that she is also having pain in both buttocks. She states that she does not know of any specific injury to her back when the pain started on Wednesday however day or 2 prior to that she had tripped over a dog leash. She reports no significant injuries with the trip either. She denies f ever, chills, nausea, vomiting. She denies urinary symptoms. She states that she has felt a little funny in her groin off and on but denies any bowel or bladder incontinence. She reports that she has not taken any Tylenol but she has taken a couple ibuprofen although she has to be extremely careful in doing so given that she has had a kidney transplant. Further questioning done with patient and she reports that she has chronically had low back problems and chronically had some numbness of her upper inner thighs. She reports that this seems maybe a bit worse but it is difficult to tell. She denies any urinary retention or hesitancy. She reports full feeling of her anus and ability to control at the sphincter. Associated symptoms: Deny abdominal pain, chills, dysuria, fever(s), nausea or vomiting Review of Systems Const: Denies: fever(s), chills or body aches Card: Denies: chest pain or palpitations Resp: Denies: dyspnea, productive cough or non-productive cough GI: Denies: abdominal pain, nausea or vomiting : Reports: other (History of kidney transplant); Denies: flank pain, difficulty voiding or dysuria Musc: Reports: back pain Skin/Breast: Denies: rash, pruritus or erythema PFSH ED PFSH: Medical History Diabetes Migraines Surgical History History of kidney transplant Family History Other Diabetes Social History Smoking and tobacco status: never smoked History of recent travel: No Physical Exam Const: COMMON NORMALS: patient oriented x3 and alert OTHER: Patient does appear to be in pain is having slow movements and a guarded gait. Resp: COMMON NORMALS: normal respiratory effort and No use of accessory muscles Back/Pelvis: OTHER: Patient has some vertebral tenderness to palpation lumbar region L4-L5. Lumbar paraspinal muscle tenderness worse on the right side. Tenderness to palpation bilateral buttocks reproduces pain complaint. No obvious bony deformity, step- off. No obvious soft tissue deformity. No weakness of the extremities. Sensation is equal bilateral. Patient currently has equal sensation bilateral upper inner thighs to soft touch however reports that she has chronically had intermittent tingling/numbness feeling of bilateral upper thighs that may be slightly worse since her back started hurting. Neuro: COMMON NORMALS: patient oriented x3 SENSORIUM/ORIENTATION: Yes alert Course Vital Signs: Vital signs: Vital Signs Temperature 98.0 F 07/07/22 20:39 Pulse Rate 109 H 07/07/22 20:39 Respiratory Rate 15 07/07/22 22:21 Blood Pressure 138/89 07/07/22 20:39 Pulse Oximetry 95 07/07/22 20:39 Oxygen Delivery Me thod 07/07/22 20:39 MDM - Back Pain/Injury Medical Decision Making Consider lumbago, radiculopathy, sciatica, muscle spasm, UTI UA dip? Lumbar x-ray?radiologist impression?no acute fracture, stable multilevel degenerative changes of varying severity in the spine, mild degenerative changes right and left sacroiliac joints. Treat patient with 1 dose of Robaxin now. Reevaluation after Robaxin patient reports very little to no pain control. Discussed this case with Dr. Grewal. Patient is walking, patient does not have urinary hesitancy or retention, patient has not had a loss of bowel or bladder function, patient has reported chronic intermittent tingling of bilateral upper inner thighs but not at this present moment. Dr. Grewal agrees that the likelihood of cuada equina is low. While CT is available, MRI is a better modality to fully evaluate. Dr. Grewal said that CT could be ordered, or patient could be sent home with pain control and muscle relaxers and orders to follow-up with Dr. Callahan for continued evaluation. I discussed with patient and patient wishes to just follow-up with neurosurgery and forego CT imaging tonight. Patient states she is just wanting to get pain under control and get some rest. Consulted with Dr. Grewal for pain control. Percocet 5 mg - 325 mg 1 p.o. every 4-6 hours #20 no refills is given for Dr. Grewal. Send patient home with Chintan also discussed conservative measures. Case management order to refer to Dr. Callahan. Labs Radiology Impressions Lumbar Spine X-Ray 07/07/22 21:02 IMPRESSION: 1. No acute fracture of the lumbar spine. CT scan would be recommended if there is continuing clinical concern for fracture. 2. Stable multilevel degenerative changes of varying severity in the visualized spine. 3. Mild degenerative changes of the right and left sacroiliac joints. 4. Incidental/nonacute findings are listed in the report. Laboratory Results Urine Color Yellow (Yellow) 07/07/22 21:50 Urine Appearance Clear (CLEAR) 07/07/22 21:50 Urine pH 5 (5-7) 07/07/22 21:50 Ur Specific [place] 1.020 (1.005-1.030) 07/07/22 21:50 Urine Protein Neg (Negative) 07/07/22 21:50 Urine Glucose (UA) 4+ (Normal) H 07/07/22 21:50 Urine Ketones Negative (Negative) 07/07/22 21:50 Urine Blood Neg (Negative) 07/07/22 21:50 Urine Nitrate Negative (Negative) 07/07/22 21:50 Urine Bilirubin Neg (Negative) 07/07/22 21:50 Urine Urobilinogen Norm mg/dL (Negative) 07/07/22 21:50 Ur Leukocyte Esterase Negative (Negative) 07/07/22 21:50 Discharge Plan Discharge Clinical Impression: Lumbar radiculopathy, Strain of lumbar region, Sciatica Condition: Stable Prescriptions: New methocarbamol 750 mg tablet 750 mg PO Q6H PRN (Reason: muscle spasm) 3 Days Qty: 12 0RF No Action cyclobenzaprine 10 mg tablet 10 mg PO TID Qty: 14 0RF tramadol 50 mg tablet 50 mg PO Q6H PRN (Reason: pain) Qty: 14 0RF tacrolimus 1 mg capsule See Rx Instructions .ROUTE .COMPLEX Rx Instructions: 2mg po qam and 1mg po qpm insulin aspart U-100 [Novolog Flexpen U-100 Insulin] 100 unit/mL (3 mL) Insulin Pen See Rx Instructions .ROUTE .COMPLEX Rx Instructions: sliding scale with meals Lantus Solostar U-100 Insulin 100 unit/mL (3 mL) insulin pen 30 unit SUBCUT BEDTIME diclofenac sodium 75 mg tablet,delayed release (DR/EC) 75 mg PO Q12H PRN (Reason: pain) Qty: 20 0RF Referrals: Celi Horne PA [Primary Care Provider] - Discharge Diet: Usual diet Discharge Activity: Increase activity as tolerated Patient Instructions: Sciatica (ED), Lumbar Radiculopathy (ED), Lower Back Exercises (ED) Activity Restrictions/Additional Instructions: Take Robaxin as needed to help with muscle spasming. You may also use Percocet as directed and as needed for pain control. Use caution in taking both of those at the same time as they could make you overly sleepy. Do not take any other medications that make you sleepy with these medications. Do not drive or operate machinery after taking these medications. Follow-up with primary care provider. Return to the ER as needed for any new or worsening symptoms. Coding Level of Care Code ED Thiokol Operator for Bess Fwd Exam Expanded Problem Focused
[2022-07-07 22:03] LABS: Add Urine Microscopic? NO; Charge for UA Resulting for Rev
[2022-07-07 22:10] LABS: Bilirubin Urine Neg (Negative); Blood Urine Neg (Negative); Glucose Urine UA 4+ (Normal); Ketones Urine Negative (Negative); Leukocyte Esterase Urine Negative (Negative); Nitrate Urine Negative (Negative); Protein Urine Neg (Negative); Urine Appearance Clear (CLEAR); Urine Color Yellow (Yellow); Urobilinogen Urine Norm (Negative); pH Urine 5 (5-7)
[2022-07-07 22:21] VITALS: RESP 15
[2022-07-07] MEDS: morphine 4 mg/mL SDV 1 mL IM (22:21)
--- NOTE | 2022-07-08 08:47 | DCPLANNER ---
Addendum entered by Doreen Lawrence 07/16/22 16:44: diversity manager received the following message from the ortho clinic regarding follow up appointment: first number in chart tried to call a couple times and patient couldn't get a good connection. called second number and it just rings and rings no vm - mailed letter to contact clinic to schedule Original Note: diversity manager had message to schedule a follow up appointment for patient with ortho. diversity manager sent patients information to the front office staff at ortho. Patients information will be printed and reviewed. Clinic will call patient with appointment information.
== END 2022-07-07 22:57 | disposition home or self-care (01) ==
PROVIDERS: Emergency Provider Nurse Practitioner Family; PCP Physician Assistant
DX: M54.16 Radiculopathy, lumbar region (principal); S39.012A Strain of muscle, fascia and tendon of lower back, initial encounter; X58.XXXA Exposure to other specified factors, initial encounter; M54.42 Lumbago with sciatica, left side; M54.41 Lumbago with sciatica, right side
CPT/HCPCS: 72100; 81003; 96372; 99284; J2270

== ENCOUNTER 2022-07-24 12:45 | Emergency (ER) | payer MEDICAID, SELFPAY ==
[2022-07-24 13:38] VITALS: BP 143/91; PULSE 97; RESP 14; TEMP 37; O2SAT 99; BMI 19.5
--- NOTE | 2022-07-24 13:58 | W.ED.BACK ---
HPI - Back Pain/Injury General: Chief Complaint: Back Pain/Injury Stated Complaint: back pain Time Seen by Provider: 07/24/22 13:50 Source: patient Mode of arrival: ambulatory Limitations: no limitations History of Present Illness: 56-year-old female presents to the ER today for continued low back pain. Patient was seen for this about 3 weeks ago and given Percocet and a muscle relaxer. Patient reports while she was taking the medication the back pain was tolerable. Patient was made an appointment with Dr. Callahan however was unable to make that appointment. She reports she has been rescheduled for this Wednesday. Patient reports the pain is just too much at this point. She reports she is not sleeping well. She reports she gets nauseated due to the pain. She is not taking anything at home due to the fact that Tylenol does not work and patient is unable to take an NSAID due to history of a kidney transplant. Patient denies any new pain, numbness, tingling, neurological deficits. Patient reports normal bowel bladder habits. Denies any radiating pain at this time. Review of Systems General: Reports: 10 or more systems reviewed and unremarkable except in HPI and below PFSH ED PFSH: Medical History Diabetes Migraines Surgical History History of kidney transplant Family History Other Diabetes Social History Smoking and tobacco status: never smoked History of recent travel: No Physical Exam Const: COMMON NORMALS: average body habitus, patient oriented x3, no limitations, healthy appearing, alert and well nourished; apparent distress (uncomfortable, not wanting to sit down) Resp: COMMON NORMALS: normal respiratory effort and No retractions Cardio: COMMON NORMALS: regular rate and regular rhythm RATE: regular rate RHYTHM: regular rhythm Back/Pelvis: OTHER: Patient is tender across the entire low back. No paraspinal muscle spasms noted. There is tenderness along the right and left SI joint with the left being more tender than the right. No minus process tenderness. No skin abnormalities. Extremity: COMMON NORMALS: normal to inspection and full ROM Neuro: COMMON NORMALS: patient oriented x3 SENSORIUM/ORIENTATION: Yes alert Psych: COMMON NORMALS: mental status grossly normal, Normal thought process present and cooperative THOUGHT PROCESS: Normal thought process present Skin: COMMON NORMALS: no rashes or lesions noted and no wounds GENERAL SKIN EXAM: no rashes or lesions noted Course ED course: Patient had imaging 3 weeks ago. At that time she denied a CT. She already has an appointment scheduled with Dr. Callahan on Wednesday. Patient is just wanting something for pain control at this time as she ran out of the Percocet and Robaxin, which would have been appropriate given the amount she was prescribed. Vital Signs: Vital signs: Vital Signs Temperature 98.6 F 07/24/22 13:38 Pulse Rate 97 07/24/22 13:38 Respiratory Rate 14 07/24/22 13:38 Blood Pressure 143/91 07/24/22 13:38 Pulse Oximetry 99 07/24/22 13:38 Oxygen Delivery Me thod 07/24/22 13:38 MDM - Back Pain/Injury Medical Decision Making Nothing is changed with patient's low back pain at this time. She ran out of medications due to not making it to her appointment with Dr. Callahan originally. She does have one scheduled for Wednesday and plans to make that 1. She understands that she cannot come back to the ER for more pain medication if she misses that appointment. We will go ahead and refill the Robaxin. I will do hydrocodone at this time. Patient given a 5-day supply of hydrocodone. Recommended warm, moist heat and topical muscle rubs. Return to the ER with new or worsening symptoms including neurological deficits. Patient verbalized understanding and was in agreement with the treatment plan. Critical Care Time Critical Care Time: Critical Care Time: No Discharge Plan Discharge Patient Disposition: Home Clinical Impression: Acute exacerbation of chronic low back pain Condition: Stable Prescriptions: New hydrocodone-acetaminophen 5-325 mg tablet 1 tab PO TID PRN (Reason: pain) 5 Days Qty: 15 0RF Medrol (Ryan) 4 mg tablets,dose pack See Rx Instructions PO .COMPLEX Qty: 21 0RF Rx Instructions: orally per package directions methocarbamol 750 mg tablet 750 mg PO Q8H Qty: 21 0RF ondansetron HCl 4 mg tablet 4 mg PO Q8H PRN (Reason: nausea and vomiting) 4 Days Qty: 12 0RF No Action cyclobenzaprine 10 mg tablet 10 mg PO TID Qty: 14 0RF tramadol 50 mg tablet 50 mg PO Q6H PRN (Reason: pain) Qty: 14 0RF tacrolimus 1 mg capsule See Rx Instructions .ROUTE .COMPLEX Rx Instructions: 2mg po qam and 1mg po qpm insulin aspart U-100 [Novolog Flexpen U-100 Insulin] 100 unit/mL (3 mL) Insulin Pen See Rx Instructions .ROUTE .COMPLEX Rx Instructions: sliding scale with meals Lantus Solostar U-100 Insulin 100 unit/mL (3 mL) insulin pen 30 unit SUBCUT BEDTIME diclofenac sodium 75 mg tablet,delayed release (DR/EC) 75 mg PO Q12H PRN (Reason: pain) Qty: 20 0RF Discharge Orders: Discharge ED (Routine); Ordered 07/24/22 Ordered By: Melissa Aguilera Referrals: Celi Horne PA [Primary Care Provider] - Discharge Diet: Usual diet Discharge Activity: Increase activity as tolerated Patient Instructions: Opioid Safety, Pain Management Activity Restrictions/Additional Instructions: Take hydrocodone as prescribed. Take muscle relaxer as prescribed. Take steroid as prescribed. Zofran is available as needed for nausea. Warm, moist heat recommended. Follow-up with specialist on Wednesday at scheduled appointment. Return to the ER with any new symptoms including neurological deficits. Coding Level of Care Code ED Senior It Specialist for Bess Chen
[2022-07-24] MEDS: HYDROcodone-acetaminophen 5-325 mg Tablet 1 TAB PO (14:08)
[2022-07-24 14:10] VITALS: BP 155/76; PULSE 76; RESP 18; O2SAT 95
== END 2022-07-24 14:10 | disposition home or self-care (01) ==
PROVIDERS: Emergency Provider Physician Assistant; PCP Physician Assistant
DX: G89.29 Other chronic pain (principal); M54.50 Low back pain, unspecified; Z79.4 Long term (current) use of insulin; E11.9 Type 2 diabetes mellitus without complications; Z94.0 Kidney transplant status
CPT/HCPCS: 99283

== ENCOUNTER 2022-07-28 01:00 | Outpatient (CLI) | payer MEDICAID, SELFPAY | END 2022-07-28 23:00 | disposition home or self-care (01) | LOC: RAD 09-08 20:02 | PROVIDERS: PCP Physician Assistant; Visit Provider Physician Assistant | DX: M54.50 Low back pain, unspecified (principal); M41.86 Other forms of scoliosis, lumbar region; M85.88 Other specified disorders of bone density and structure, other site; G89.29 Other chronic pain | CPT/HCPCS: 72110; 99203 ==

== ENCOUNTER 2022-09-30 16:55 | Emergency (ER) | payer MEDICAID, SELFPAY ==
[2022-09-30 17:07] VITALS: BP 124/86; PULSE 111; RESP 18; TEMP 36.7; O2SAT 96
--- NOTE | 2022-09-30 18:23 | W.ED.BACK ---
HPI - Back Pain/Injury General: Chief Complaint: Back Pain/Injury Stated Complaint: Weakness Time Seen by Provider: 09/30/22 18:20 History of Present Illness: 36-year-old female comes in today with uncontrolled back pain. Patient has a history of chronic back pain but for the last 3 days has been worse than normal. Patient appears in mild to moderate pain. Patient appears nontoxic. Patient has a history of low back pain, migraines, and intervertebral disc disease. Associated symptoms: Deny fever(s), nausea or vomiting Review of Systems General: Reports: 10 or more systems reviewed and unremarkable except in HPI and below Const: Denies: fever(s) Card: Denies: chest pain Resp: Denies: dyspnea GI: Denies: nausea, vomiting, diarrhea or constipation Musc: Reports: back pain Skin/Breast: Denies: rash PFSH ED PFSH: Medical History Diabetes Migraines Surgical History History of kidney transplant Family History Other Diabetes Social History Smoking and tobacco status: never smoked Physical Exam Const: COMMON NORMALS: alert HENMT: COMMON NORMALS: atraumatic HEAD & SCALP: atraumatic Neck/C-Spine: COMMON NORMALS: full ROM CERVICAL SPINE: No Cervical spine tenderness Chest: COMMONS NORMALS: normal palpation of entire chest wall Resp: COMMON NORMALS: normal respiratory effort Cardio: COMMON NORMALS: regular rate RATE: regular rate Back/Pelvis: THORACIC SPINE/UPPER BACK: No thoracic spinal tenderness and No paraspinal muscle tenderness LUMBAR SPINE/LOWER BACK: Yes lumbar spinal tenderness and Yes paraspinal muscle tenderness Extremity: COMMON NORMALS: normal to inspection Neuro: SENSORIUM/ORIENTATION: Yes alert Skin: COMMON NORMALS: no rashes or lesions noted GENERAL SKIN EXAM: no rashes or lesions noted Course Vital Signs: Vital signs: Vital Signs Temperature 98.1 F 09/30/22 18:51 Pulse Rate 111 H 09/30/22 18:51 Respiratory Rate 18 09/30/22 18:51 Blood Pressure 124/86 09/30/22 18:51 Pulse Oximetry 96 09/30/22 18:51 Oxygen Delivery Ok thod 09/30/22 17:07 MDM - Back Pain/Injury Medical Decision Making 56-year-old female comes in today with complaints of low back pain. On exam patient has muscle tightness and tenderness in the left lower back along with some lumbar spinal tenderness around L4-L5. Normal range of motion of extremities are noted. Vital signs are normal. Differential diagnosis includes intervertebral disc disease, facet arthropathy, muscle strain, osteoarthritis. Reviewed exam with patient with recommendations for follow-up with primary care or pain management. Patient reports that she has an appointment to see her physician next week. Patient was given medications for her pain with recommendations for nonpharmaceutical measures for pain control. Patient reported understanding and agreed to plan. Discharge Plan Discharge Patient Disposition: Home Clinical Impression: Low back pain Qualifiers: Chronicity: unspecified Back pain laterality: right Sciatica presence: without sciatica Qualified Code(s): M54.50 - Low back pain, unspecified Condition: Stable Prescriptions: New hydrocodone-acetaminophen 5-325 mg tablet 1 tab PO Q8H PRN (Reason: pain (scale score 7-10)) Qty: 15 0RF ondansetron 4 mg tablet,disintegrating 4 mg PO Q8H PRN (Reason: nausea and vomiting) 3 Days Qty: 7 0RF Continued diclofenac sodium 75 mg tablet,delayed release (DR/EC) 75 mg PO Q12H PRN (Reason: pain) Qty: 20 0RF Changed cyclobenzaprine 10 mg tablet 10 mg PO 1XD Qty: 10 0RF No Action tramadol 50 mg tablet 50 mg PO Q6H PRN (Reason: pain) Qty: 14 0RF tacrolimus 1 mg capsule See Rx Instructions .ROUTE .COMPLEX Rx Instructions: 2mg po qam and 1mg po qpm insulin aspart U-100 [Novolog FlexPen U-100 Insulin] 100 unit/mL (3 mL) Insulin Pen See Rx Instructions .ROUTE .COMPLEX Rx Instructions: sliding scale with meals Lantus Solostar U-100 Insulin 100 unit/mL (3 mL) insulin pen 30 unit SUBCUT BEDTIME Medrol (Ryan) 4 mg tablets,dose pack See Rx Instructions PO .COMPLEX Qty: 21 0RF Rx Instructions: orally per package directions methocarbamol 750 mg tablet 750 mg PO Q8H Qty: 21 0RF Discharge Orders: Discharge ED (Routine); Ordered 09/30/22 Ordered By: Sonu Ambrosio Referrals: Celi Horne PA [Primary Care Provider] - Discharge Diet: Usual diet Discharge Activity: Increase activity as tolerated Patient Instructions: Opioid Safety, Pain Management Activity Restrictions/Additional Instructions: Home and rest. Drink plenty of water with medication. Take diclofenac routinely for pain and inflammation. Use cyclobenzaprine at bedtime for rest and better pain control. Take hydrocodone for severe pain. Follow-up with primary care or pain care team assistant for further treatment and evaluation. Coding Level of Care Code ED Client Services Administrator for Bess Chen
[2022-09-30 18:51] VITALS: BP 124/86; PULSE 111; RESP 18; TEMP 36.7; O2SAT 96
== END 2022-09-30 18:53 | disposition home or self-care (01) ==
PROVIDERS: Emergency Provider Nurse Practitioner Family; PCP Physician Assistant
DX: M54.50 Low back pain, unspecified (principal); Z79.4 Long term (current) use of insulin; E11.9 Type 2 diabetes mellitus without complications
CPT/HCPCS: 99283

== ENCOUNTER 2022-10-19 11:32 | Outpatient (CLI) | payer MEDICAID, SELFPAY ==
--- NOTE | 2022-10-19 11:45 | MR_ITS ---
WS: [id number] MRI LUMBAR SPINE NONCONTRAST TECHNIQUE: Sagittal T1, T2 and STIR imaging. Axial T1 and T2 imaging. CLINICAL INFORMATION: pain COMPARISON: MRI 2009 FINDINGS: Mild lumbar curve. No acute compression. No high-grade central canal stenosis. Mild facet arthropathy . Spinal canal and foramen are patent. Disc bulging at L3-L4 and L4-L5 have slightly progressed since 2009. L1-L2: Normal L2-L3: No significant disc bulging. Moderate facet arthropathy. Spinal canal and foramen are patent. L3-L4: Minimal annular bulging. Slight narrowing of the subarticular recess bilaterally. Moderate fac et arthropathy. Foramen are patent. L4-L5: Mild annular bulging with slight impingement on the traversing LEFT L5 nerve root. Moderate fa cet arthropathy. Mild LEFT and no significant RIGHT foraminal narrowing. L5-S1: No significant disc bulging. Mild facet arthropathy. Spinal canal and foramen are patent. Visualized pelvic bony structures: Normal. Paravertebral soft tissues: Normal. MR/MR lumbar spine wo con* [id number] IMPRESSION: 1. Mild lumbar curve. No acute compression. No high-grade central canal stenos is. 2. Mild annular bulging L3-L4 with slight narrowing of the subarticular recess . This is slightly progressed. 3. Disc bulging L4-L5 impinges the traversing LEFT L5 nerve root in the subart icular recess. Recommend correlation LEFT L5 nerve root symptoms. This is sligh tly progressed. 4. Mild LEFT L4-L5 foraminal narrowing. 5. Moderate facet arthropathy L3-L4 and L4-L5. 6. Mild disc bulging in the cervical spine C6-C7 and C7-T1 with mild central c anal stenosis seen on the weatherization technician imaging. This can be further evaluated with [facility]
== END 2022-10-19 11:33 | disposition home or self-care (01) ==
LOC: RAD 11:33
PROVIDERS: PCP Physician Assistant; Visit Provider Physician Assistant
DX: G89.29 Other chronic pain (principal); M51.26 Other intervertebral disc displacement, lumbar region; M50.223 Other cervical disc displacement at C6-C7 level; M48.02 Spinal stenosis, cervical region; M47.816 Spondylosis without myelopathy or radiculopathy, lumbar region
CPT/HCPCS: 72148

== ENCOUNTER → 2022-11-19 13:01 | Outpatient (BNVA) | payer MEDICAID, SELFPAY | PROVIDERS: PCP Physician Assistant; Visit Provider Physician Assistant | DX: M47.816 Spondylosis without myelopathy or radiculopathy, lumbar region (principal); Z09 Encounter for follow-up examination after completed treatment for conditions other than malignant neoplasm | CPT/HCPCS: 99213 ==

== ENCOUNTER 2022-12-10 11:27 | Outpatient (CLI) | payer MEDICAID, SELFPAY | END 2022-12-10 11:28 | disposition home or self-care (01) | LOC: RAD 11:30 | PROVIDERS: PCP Physician Assistant; Visit Provider Anesthesiology Pain Medicine | DX: M16.0 Bilateral primary osteoarthritis of hip (principal); M47.816 Spondylosis without myelopathy or radiculopathy, lumbar region; G56.22 Lesion of ulnar nerve, left upper limb | CPT/HCPCS: 73521; 99204 ==

== ENCOUNTER 2023-01-06 16:16 | Emergency (ER) | payer MEDICAID, SELFPAY ==
[2023-01-06 16:47] VITALS: BP 128/76; PULSE 101; RESP 18; TEMP 36.8; O2SAT 100; BMI 20.3
--- NOTE | 2023-01-06 17:09 | ED_ITS ---
HPI - Back Pain/Injury General: Chief Complaint: Back Pain/Injury Stated Complaint: low back pain Time Seen by Provider: 01/06/23 17:04 History of Present Illness: 57-year-old female comes in today for complaints of uncontrolled low back pain. Patient has a history of chronic back pain and reports for the last 3 days she has had pain that she has not been able to control with routine medications at home. Review of the record notes the patient takes amitriptyline, ibuprofen, Lantus, NovoLog, methocarbamol for routine medications. Patient also has diabetes type 1. Patient appears nontoxic. Patient appears in mild to moderate pain. Review of Systems General: Reports: 10 or more systems reviewed and unremarkable except in HPI and below Musc: Reports: back pain PFSH ED PFSH: Medical History Diabetes Migraines Surgical History History of kidney transplant Family History Other Diabetes Social History Smoking and tobacco status: never smoked Physical Exam Const: COMMON NORMALS: alert HENMT: COMMON NORMALS: normocephalic HEAD & SCALP: normocephalic Neck/C-Spine: COMMON NORMALS: full ROM Resp: COMMON NORMALS: normal respiratory effort Cardio: COMMON NORMALS: regular rate RATE: regular rate Back/Pelvis: LUMBAR SPINE/LOWER BACK: No lumbar spinal tenderness and Yes paraspinal muscle tenderness Lumbar paraspinal muscle tenderness: right Extremity: COMMON NORMALS: normal to inspection Neuro: SENSORIUM/ORIENTATION: Yes alert Skin: COMMON NORMALS: no rashes or lesions noted GENERAL SKIN EXAM: no rashes or lesions noted Course Vital Signs: Vital signs: Vital Signs Temperature 98.2 F 01/06/23 16:47 Pulse Rate 101 H 01/06/23 16:47 Respiratory Rate 18 01/06/23 16:47 Blood Pressure 128/76 01/06/23 16:47 Pulse Oximetry 100 01/06/23 16:47 Oxygen Delivery Me thod Room Air 01/06/23 16:47 MDM - Back Pain/Injury Medical Decision Making Patient comes in today due to exacerbation of chronic low back pain. On exam patient is muscle tightness and tenderness to the right lower back. No spinal tenderness is noted on palpation. Patient reports no acute injuries. Differential diagnosis includes but not limited to strain, intervertebral disc disease, facet arthropathy. Reviewed exam with patient recommended treatment with NSAIDs and hydrocodone. Patient reported understanding agreed to plan. Discharge Plan Discharge Patient Disposition: Home Clinical Impression: Low back pain Qualifiers: Chronicity: chronic Back pain laterality: right Sciatica presence: unspecified whether sciatica present Qualified Code(s): M54.50 - Low back pain, unspecified Condition: Stable Prescriptions: New hydrocodone-acetaminophen 5-325 mg tablet 1 tab PO Q8H PRN (Reason: pain (scale score 7-10)) Qty: 10 0RF No Action ibuprofen [IBU-200] 200 mg tablet 200 mg PO Q6H PRN amitriptyline 25 mg tablet 25 mg PO DAILY methocarbamol 750 mg tablet 750 mg PO BID Qty: 60 0RF tacrolimus 1 mg capsule See Rx Instructions .ROUTE .COMPLEX Rx Instructions: 2mg po qam and 1mg po qpm insulin aspart U-100 [Novolog FlexPen U-100 Insulin] 100 unit/mL (3 mL) Insulin Pen See Rx Instructions .ROUTE .COMPLEX Rx Instructions: sliding scale with meals Lantus Solostar U-100 Insulin 100 unit/mL (3 mL) insulin pen 30 unit SUBCUT BEDTIME diclofenac sodium 75 mg tablet,delayed release (DR/EC) 75 mg PO Q12H PRN (Reason: pain) Qty: 20 0RF Discharge Orders: Discharge ED (Routine); Ordered 01/06/23 Ordered By: Sonu Ambrosio Referrals: Celi Horne PA [Primary Care Provider] - Discharge Diet: Usual diet Discharge Activity: Increase activity as tolerated Patient Instructions: Opioid Safety, Pain Management Activity Restrictions/Additional Instructions: Activity as tolerated. Gentle stretching and range of motion exercises. Use acetaminophen and/or ibuprofen as needed for control of back pain. Gentle stretching and range of motion exercises. Use ice or heat for further comfort relief. Use hydrocodone for severe pain. Follow-up with primary care for further instructions. Return to ED for new concerns. Coding Level of Care Code ED Auto Claims Adjuster for Bess Chen
[2023-01-06] MEDS: HYDROcodone-acetaminophen 7.5-325 mg Tablet 1 TAB PO (17:25)
[2023-01-06] MEDS: ketorolac 30 mg/mL INJ IM (17:25)
== END 2023-01-06 17:29 | disposition home or self-care (01) ==
PROVIDERS: Emergency Provider Nurse Practitioner Family; PCP Physician Assistant
DX: M54.50 Low back pain, unspecified (principal); Z79.4 Long term (current) use of insulin; E11.9 Type 2 diabetes mellitus without complications; Z94.0 Kidney transplant status
CPT/HCPCS: 96372; 99284; J1885

== ENCOUNTER → 2023-01-14 14:00 | Outpatient (BNVA) | payer MEDICAID, SELFPAY | PROVIDERS: PCP Physician Assistant; Visit Provider Anesthesiology Pain Medicine | DX: M47.816 Spondylosis without myelopathy or radiculopathy, lumbar region (principal) | CPT/HCPCS: 64493; 64494; 64495 ==

== ENCOUNTER 2023-02-12 16:24 | Emergency (ER) | payer MEDICAID, SELFPAY ==
[2023-02-12 16:47] VITALS: BP 149/89; PULSE 101; RESP 17; O2SAT 96; BMI 19.3
--- NOTE | 2023-02-12 18:15 | ED_ITS ---
HPI - Back Pain/Injury General: Chief Complaint: Back Pain/Injury Stated Complaint: back & leg pain Time Seen by Provider: 02/12/23 18:14 History of Present Illness: 57-year-old female comes in today for complaints of increased back pain. Patient reports that she was moving over the weekend and believes she strained her back. Patient does have a history of chronic back problems. Patient does go to pain management but does not receive narcotics. Patient last seen her paintless dent repair technician on 14 January. Patient supposed to see her pain care manager cna in the coming week. Patient appears nontoxic. Patient appears in no acute distress. Patient also has diabetes mellitus insulin controlled. Associated symptoms: Reports nausea; Deny vomiting Review of Systems General: Reports: 10 or more systems reviewed and unremarkable except in HPI and below Card: Denies: chest pain Resp: Denies: dyspnea GI: Reports: nausea; Denies: vomiting, diarrhea or constipation : Denies: difficulty voiding Musc: Reports: back pain PFS ED PFSH: Medical History Diabetes Migraines Surgical History History of kidney transplant Family History Other Diabetes Social History Smoking and tobacco status: never smoked Physical Exam Const: COMMON NORMALS: alert HENMT: COMMON NORMALS: normocephalic HEAD & SCALP: normocephalic Neck/C-Spine: COMMON NORMALS: full ROM Resp: COMMON NORMALS: normal respiratory effort Cardio: COMMON NORMALS: regular rate RATE: regular rate Back/Pelvis: COMMON NORMALS: thoracic and lumbar spine normal to inspection OTHER: Mild decreased range of motion of the thoracic and lumbar spine. Otherwise unremarkable except for some paraspinous muscle tenderness Extremity: COMMON NORMALS: full ROM Neuro: SENSORIUM/ORIENTATION: Yes alert Skin: COMMON NORMALS: turgor normal GENERAL SKIN EXAM: turgor normal Course Vital Signs: Vital signs: Vital Signs Pulse Rate 101 H 02/12/23 16:47 Respiratory Rate 17 07/07/23 16:47 Blood Pressure 158/97 07/07/23 18:31 Pulse Oximetry 96 02/12/23 16:47 Oxygen Delivery Me thod Room Air 02/12/23 16:47 MDM - Back Pain/Injury Medical Decision Making 57-year-old female comes in today for evaluation of low back pain. On exam patient has some muscle tenderness on palpation and some decreased range of motion. No loss of limb control or loss of bowel or bladder control. Patient denies any fever or chills. Differential diagnoses includes but not limited to lumbar strain, intervertebral disc disease, facet arthritis, malingering. Patient has exacerbation of chronic back pain most likely due to moving this weekend with increased activity. Patient was given a dose of Toradol and will be covered with 7 tablets of hydrocodone at home. Patient was encouraged to follow-up with primary care for further instructions return to the ER for worsening symptoms such as high fever, loss of bowel or bladder control, blood in vomit or sputum, or new concerns. Patient reported understanding. Discharge Plan Discharge Patient Disposition: Home Clinical Impression: Lumbar facet arthropathy Strain of lumbar region Qualifiers: Encounter type: initial encounter Qualified Code(s): S39.012A - Strain of muscle, fascia and tendon of lower back, initial encounter Condition: Stable Prescriptions: New hydrocodone-acetaminophen 5-325 mg tablet 1 tab PO BID PRN (Reason: pain (scale score 7-10)) Qty: 7 0RF Discontinued hydrocodone-acetaminophen 5-325 mg tablet 1 tab PO Q8H PRN (Reason: pain (scale score 7-10)) Qty: 10 0RF No Action ibuprofen [IBU-200] 200 mg tablet 200 mg PO Q6H PRN amitriptyline 25 mg tablet 25 mg PO DAILY methocarbamol 750 mg tablet 750 mg PO BID Qty: 60 0RF tacrolimus 1 mg capsule See Rx Instructions .ROUTE .COMPLEX Rx Instructions: 2mg po qam and 1mg po qpm insulin aspart U-100 [Novolog FlexPen U-100 Insulin] 100 unit/mL (3 mL) Insulin Pen See Rx Instructions .ROUTE .COMPLEX Rx Instructions: sliding scale with meals Lantus Solostar U-100 Insulin 100 unit/mL (3 mL) insulin pen 30 unit SUBCUT BEDTIME diclofenac sodium 75 mg tablet,delayed release (DR/EC) 75 mg PO Q12H PRN (Reason: pain) Qty: 20 0RF Discharge Orders: Discharge ED (Routine); Ordered 02/12/23 Ordered By: Sonu Ambrosio Referrals: Celi Horne PA [Primary Care Provider] - Discharge Diet: Usual diet Discharge Activity: Increase activity as tolerated Patient Instructions: Opioid Safety, Pain Management Activity Restrictions/Additional Instructions: Maintain activity as tolerated. Drink plenty of water and fluids. Use medications as prescribed. Follow-up with primary care for further instructions. Return to ED for new concerns or worsening symptoms such as high fever greater than 100.4, inability to hold fluids down, blood in vomit or stool. Coding Level of Care Code ED Spare Hand Carding for Bess Chen
[2023-02-12 18:31] VITALS: BP 158/97
[2023-02-12 19:08] VITALS: BP 143/94; PULSE 93; RESP 16; O2SAT 97
[2023-02-12] MEDS: ketorolac 30 mg/mL INJ IM (19:09)
[2023-02-12] MEDS: HYDROcodone-acetaminophen 5-325 mg Tablet 1 TAB PO (19:09)
== END 2023-02-12 19:18 | disposition home or self-care (01) ==
PROVIDERS: Emergency Provider Nurse Practitioner Family; PCP Physician Assistant
DX: S39.012A Strain of muscle, fascia and tendon of lower back, initial encounter (principal); M47.896 Other spondylosis, lumbar region; Z79.4 Long term (current) use of insulin; E11.9 Type 2 diabetes mellitus without complications; Z94.0 Kidney transplant status; X50.9XXA Other and unspecified overexertion or strenuous movements or postures, initial encounter
CPT/HCPCS: 96372; 99284; J1885

== ENCOUNTER 2023-02-24 14:34 | Emergency (ER) | payer MEDICAID, SELFPAY ==
--- NOTE | 2023-02-24 14:35 | XR_ITS ---
WS: [id number] Exam: XR lumbar spine 2-3V* [id number] Date/Time of Exam: 02/24/2023 2:44 PM Reason For Exam: fall with low back pain Comparison 07/28/2022. No acute fracture or dislocation. Disc spaces are well preserved. Posterior elements are intact. Pron ounced osteopenia. Numerous epigastric calcifications noted that could represent chronic calcific díaz creatitis. Surgical clips in the right pelvis. XR/XR lumbar spine 2-3V* [id number] IMPRESSION: 1. No fracture or dislocation. 2. Pronounced osteopenia.
--- NOTE | 2023-02-24 14:35 | XR_ITS ---
WS: [id number] Exam: XR sacrum coccyx min 2V [id number] Date/Time of Exam: 02/24/2023 2:44 PM Reason For Exam: fall with tailbone pain On the lateral view there is anterior angulation of the upper coccyx that is suspicious for a minimal ly displaced fracture. No sacral fracture is noted. Degenerative change of the SI joints. Osteopenia. XR/XR sacrum coccyx min 2V [id number] IMPRESSION: 1. Findings suspicious for a minimally displaced fracture of the upper coccyx.
[2023-02-24 14:57] VITALS: BP 144/92; PULSE 101; RESP 16; TEMP 36.6; O2SAT 97; BMI 20.3
--- NOTE | 2023-02-24 15:24 | W.ED.FALL ---
HPI - Fall General: Chief Complaint: Fall Stated Complaint: fall, tailbone pain Time Seen by Provider: 02/24/23 15:03 History of Present Illness: Patient is a 57-year-old female comes to the ED with tailbone and lower back pain after fall. Patient said fall occurred approximately 2 days ago. Patient says her home has concrete floors and she went to sit down in a chair and it slid out from under her. She fell down in her tailbone and lower back at the ground. Denies any head injury, loss of consciousness. She has been having 10 out of 10 pain in her tailbone and lower back. Sitting in certain positions causes worsening pain. She has been taking Tylenol and ibuprofen and that has not been helping her pain. Denies any other injuries. Associated symptoms-after fall: Denies abdominal pain, chest pain, headache(s), hematuria or neck pain Review of Systems Const: Denies: fever(s), chills or fatigue Eyes: Denies: change in vision or eye discomfort ENMT: Denies: throat pain, odynophagia, nasal discharge or nasal congestion Card: Denies: chest pain, palpitations, edema, swelling of feet/ankles, dyspnea on exertion or orthopnea Resp: Denies: dyspnea, productive cough or non-productive cough GI: Denies: abdominal pain, nausea, vomiting, diarrhea, constipation or hematochezia : Denies: flank pain, dysuria or hematuria Musc: Reports: back pain (Low back and tailbone pain); Denies: neck pain or extremity swelling Skin/Breast: Denies: rash or new lesions Neuro: Denies: headache(s), numbness in extremities or weakness in extremities PFS ED PFSH: Medical History Diabetes Migraines Surgical History History of kidney transplant Family History Other Diabetes Social History Smoking and tobacco status: never smoked Physical Exam Const: COMMON NORMALS: no acute distress, patient oriented x3, healthy appearing and alert HENMT: COMMON NORMALS: normocephalic HEAD & SCALP: normocephalic MOUTH: Normal oral and palatal mucosa present THROAT: posterior oropharynx normal and uvula midline Neck/C-Spine: COMMON NORMALS: supple GENERAL: Yes normal visual inspection Resp: COMMON NORMALS: normal respiratory effort, No retractions, No use of accessory muscles and clear to auscultation bilaterally AUSCULTATION: clear to auscultation bilaterally Cardio: COMMON NORMALS: regular rate, regular rhythm, S1 normal heart sound present, S2 normal heart sound present, No gallops present (Cardio), No clicks present (Cardio), No murmurs present (Cardio) and Peripheral pulses 2+ throughout RATE: regular rate RHYTHM: regular rhythm HEART SOUNDS: S1 normal heart sound present and S2 normal heart sound present PERIPHERAL PULSES: Peripheral pulses 2+ throughout GI: COMMON NORMALS: Normal to inspection, nondistended, normoactive bowel sounds present, Soft to palpation, non-tender and no masses PALPATION: Yes Soft to palpation : COMMON NORMALS: Yes no CVA tenderness BLADDER/KIDNEY EXAM: Yes no CVA tenderness Back/Pelvis: COMMON NORMALS: no CVA tenderness LUMBAR SPINE/LOWER BACK: Yes paraspinal muscle tenderness Lumbar paraspinal muscle tenderness: bilateral Bilateral lumbar paraspinal muscle tenderness: L5 COCCYX: Coccyx tenderness present Neuro: COMMON NORMALS: patient oriented x3 SENSORIUM/ORIENTATION: Yes alert GAIT: Yes Normal gait present Skin: GENERAL SKIN EXAM: dry skin Course Vital Signs: Vital signs: Vital Signs Temperature 97.8 F 02/24/23 14:57 Pulse Rate 101 H 02/24/23 14:57 Respiratory Rate 16 02/24/23 14:57 Blood Pressure 144/92 02/24/23 14:57 Pulse Oximetry 97 02/24/23 14:57 MDM - Fall Medical Decision Making Patient is a 57-year-old female comes to the ED with tailbone and lower back pain after fall. Patient said fall occurred approximately 2 days ago. Patient says her home has concrete floors and she went to sit down in a chair and it slid out from under her. She fell down in her tailbone and lower back at the ground. Denies any head injury, loss of consciousness. She has been having 10 out of 10 pain in her tailbone and lower back. Sitting in certain positions causes worsening pain. She has been taking Tylenol and ibuprofen and that has not been helping her pain. Denies any other injuries. Vital stable. Patient has some lumbar paraspinal muscle tenderness bilaterally and some coccyx tenderness. Rest of exam is benign. X-ray of the lumbar spine showed no acute fractures or findings. X-ray of sacrum and coccyx showed minimally displaced fracture of upper coccyx. Patient was diagnosed with a closed fracture of coccyx and low back pain and was discharged home with a prescription for hydrocodone and a muscle relaxer. Told to follow-up with PCP within the next week for reevaluation. Return to ED precautions given. Patient understood and agreed with plan. Lab Data Radiology Impressions Lumbar Spine X-Ray 02/24/23 14:35 IMPRESSION: 1. No fracture or dislocation. 2. Pronounced osteopenia. Sacrum and Coccyx X-Ray 02/24/23 14:35 IMPRESSION: 1. Findings suspicious for a minimally displaced fracture of the upper coccyx. Discharge Plan Discharge Patient Disposition: Home Clinical Impression: Closed fracture of coccyx Qualifiers: Encounter type: initial encounter Qualified Code(s): S32.2XXA - Fracture of coccyx, initial encounter for closed fracture Low back pain Qualifiers: Chronicity: acute Back pain laterality: bilateral Sciatica presence: without sciatica Qualified Code(s): M54.50 - Low back pain, unspecified Condition: Stable Prescriptions: New methocarbamol 750 mg tablet 750 mg PO Q8H PRN (Reason: Muscle spasms and pain) Qty: 20 0RF No Action ibuprofen [IBU-200] 200 mg tablet 200 mg PO Q6H PRN amitriptyline 25 mg tablet 25 mg PO DAILY methocarbamol 750 mg tablet 750 mg PO BID Qty: 60 0RF tacrolimus 1 mg capsule See Rx Instructions .ROUTE .COMPLEX Rx Instructions: 2mg po qam and 1mg po qpm insulin aspart U-100 [Novolog FlexPen U-100 Insulin] 100 unit/mL (3 mL) Insulin Pen See Rx Instructions .ROUTE .COMPLEX Rx Instructions: sliding scale with meals Lantus Solostar U-100 Insulin 100 unit/mL (3 mL) insulin pen 30 unit SUBCUT BEDTIME diclofenac sodium 75 mg tablet,delayed release (DR/EC) 75 mg PO Q12H PRN (Reason: pain) Qty: 20 0RF hydrocodone-acetaminophen 5-325 mg tablet 1 tab PO BID PRN (Reason: pain (scale score 7-10)) Qty: 7 0RF Discharge Orders: Discharge ED (Routine); Ordered 02/24/23 Ordered By: Juice Wall Referrals: Celi Horne PA [Primary Care Provider] - Discharge Diet: Regular Discharge Activity: Increase activity as tolerated Patient Instructions: Coccyx Injury (ED), Opioid Safety Activity Restrictions/Additional Instructions: Follow-up with medical provider as directed in the next 7 to 10 days for reevaluation. Use multiple cushions/pillows to sit on to help with pain when sitting. Take medications as prescribed. Return to the ER or your medical provider if condition worsens. Please read and understand discharge instructions. Thank you for choosing [facility] for your healthcare needs today. Please realize this is an emergency room and that we are providing you with a medical screening exam and this may not be complete and all inclusive of all the testing and or work up that you may need to determine your ailment or severity of your illness. It is very important that you follow up as instructed or that you return to the Emergency Department should you have concerns or if your condition changes or worsens in any way. Coding Level of Care Code ED Energy Conservation Representative for Bess Chen
[2023-02-24] MEDS: HYDROcodone-acetaminophen 7.5-325 mg Tablet 1 TAB PO (15:31)
[2023-02-24] MEDS: methocarbamol 750 mg Tablet PO (15:32)
== END 2023-02-24 16:08 | disposition home or self-care (01) ==
PROVIDERS: Emergency Provider Physician Assistant; PCP Physician Assistant
DX: M54.50 Low back pain, unspecified (principal); S32.2XXA Fracture of coccyx, initial encounter for closed fracture; Z79.4 Long term (current) use of insulin; E11.9 Type 2 diabetes mellitus without complications; Z94.0 Kidney transplant status; W07.XXXA Fall from chair, initial encounter
CPT/HCPCS: 72100; 72220; 99283

== ENCOUNTER 2023-03-16 19:42 | Emergency (ER) | payer MEDICAID, SELFPAY ==
[2023-03-16 19:49] VITALS: BP 144/92; PULSE 103; RESP 12; TEMP 36.7; O2SAT 96; BMI 18.6
--- NOTE | 2023-03-16 21:51 | W.ED.NAVMDI ---
HPI - Nausea/Vomiting/Diarrhea General: Chief complaint: Nausea/Vomiting/Diarrhea Stated complaint: throwing up, head pain, cant keep anything down Time Seen by Provider: 03/16/23 21:30 History of Present Illness: 57yo female presents with significant other for evaluation of nausea, vomiting, tailbone pain, back discomfort, headache. Patient reports that she has had the nausea and vomiting for the past 2 days. States that she is not able to keep anything down. She reports that she is able to make urine. She states she has a fracture of her tailbone from a fall approximately 3 weeks ago. States that that is hurting her more. She states that she does have a headache that has developed since she has been vomiting. She has not taken any medication for it. She reports that she does not know what her blood sugar has been, but has continued to take her insulin. Patient denies any fever, difficulty breathing, shortness of breath, chest pain, abdominal pain. Associated nausea: Yes Associated symtoms: Reports headache(s) and nausea; Denies chest pain Review of Systems Const: Denies: fever(s), chills or body aches Card: Denies: chest pain Resp: Denies: dyspnea GI: Reports: nausea and vomiting; Denies: abdominal pain or diarrhea : Denies: flank pain or difficulty voiding Musc: Reports: back pain Neuro: Reports: headache(s) [facility] ED PFSH: Medical History Diabetes Migraines Surgical History History of kidney transplant Family History Other Diabetes Social History Smoking and tobacco status: never smoked Physical Exam Const: COMMON NORMALS: no acute distress, patient oriented x3, alert and well nourished GENERAL APPEARANCE: cooperative ORIENTATION/CONSCIOUSNESS: Yes awake OTHER: Patient is ambulatory to the exam room unassisted. She is sitting upright on the stretcher in no acute distress. She is able to give history with no difficulty. Significant other is at bedside HENMT: COMMON NORMALS: normocephalic, atraumatic and Normal external nose present HEAD & SCALP: normocephalic and atraumatic NOSE: Normal external nose present MOUTH: Normal oral and palatal mucosa present and moist mucous membranes abnormal Eye: GENERAL EYE: appearance normal, both eyes and all related structures Neck/C-Spine: COMMON NORMALS: full ROM Chest: CHEST: Yes Symmetrical chest wall rise Resp: COMMON NORMALS: normal respiratory effort EFFORT & INSPECTION: Yes able to speak in complete sentences and No respiratory distress Cardio: COMMON NORMALS: regular rate and regular rhythm RATE: regular rate RHYTHM: regular rhythm GI: COMMON NORMALS: Soft to palpation PALPATION: Yes Soft to palpation Extremity: GENERAL: Yes normal exam except as noted Neuro: COMMON NORMALS: patient oriented x3 SENSORIUM/ORIENTATION: Yes alert Psych: COMMON NORMALS: mental status grossly normal Course Vital Signs: Vital signs: Vital Signs Temperature 98.0 F 03/17/23 00:47 Pulse Rate 68 03/17/23 00:47 Respiratory Rate 16 03/17/23 00:47 Blood Pressure 147/88 03/17/23 00:47 Pulse Oximetry 97 03/17/23 00:47 MDM - Nausea/Vomiting/Diarrhea Medical Decision Making 57yo female here with significant other for evaluation of nausea and vomiting that has been ongoing for the past 2 to 3 days. States that she also has a headache. She reports that she has a tailbone fracture from a few weeks back that is causing her more pain and she believes it is radiating into her back. She denies any recent fall, trauma, injury, fever, cough, congestion, difficulty breathing, shortness of breath, chest pain, abdominal pain. Patient is nontoxic in appearance. Vital signs are stable. CBC is grossly unremarkable. CMP with a glucose of 438 and elevated alkaline phosphatase, otherwise unremarkable. UA with 4+ glucose, 1+ ketones, trace leukocytes, 10-15 white blood cells, trace bacteria. Discussed findings with patient. Patient did receive 1 L normal saline bolus as well as promethazine and had no further vomiting or diarrhea. Discussed all findings with patient. Patient's repeat glucose was 268. Short course promethazine prescribed. Encourage patient to closely monitor her glucose and follow-up with her primary care within the next week for recheck to discuss her elevated glucose and any changes that may need to be made to her insulin. Recommend patient return to the emergency department if any rapid worsening symptoms and as needed. Differential Diagnosis Likely gastroenteritis and dehydration Lab Data 03/16/23 21:50 03/16/23 21:50 Laboratory Results WBC 7.4 10^3/uL (4.0-10.0) 03/16/23 21:50 RBC 5.28 10^6/uL (4.1-5.3) 03/16/23 21:50 Hgb 15.3 g/dL (11.5-15.3) 03/16/23 21:50 Hct 45.8 % (37.0-47.0) 03/16/23 21:50 MCV 86.7 fl (81-99) 03/16/23 21:50 MCH 29.0 pg (28.0-34.0) 03/16/23 21:50 MCHC 33.4 g/dL (30.0-36.0) 03/16/23 21:50 RDW 12.6 % (12.1-15.1) 03/16/23 21:50 Plt Count 199 10^3/cmm (130-400) 03/16/23 21:50 MPV 10.5 fL (7.4-10.4) H 03/16/23 21:50 Neut % (Auto) 66.0 % 03/16/23 21:50 Lymph % (Auto) 25.5 % 03/16/23 21:50 Turner % (Auto) 6.7 % 03/16/23 21:50 Eos % (Auto) 1.1 % 03/16/23 21:50 Baso % (Auto) 0.4 % 03/16/23 21:50 Neut # (Auto) 4.90 10^3/uL (1.8-7.7) 03/16/23 21:50 Lymph # (Auto) 1.9 10^3/uL (0.8-4.8) 03/16/23 21:50 Turner # (Auto) 0.5 10^3/uL (0.2-0.9) 03/16/23 21:50 Eos # (Auto) 0.1 10^3/uL (0.0-0.8) 03/16/23 21:50 Baso # (Auto) 0.0 10^3/uL (0.0-0.1) 03/16/23 21:50 Nucleated RBC % (auto) 0 % 03/16/23 21:50 Nucleated RBCs # 0.0 /100WBC 03/16/23 21:50 Sodium 135 mmol/L (136-145) L 03/16/23 21:50 Potassium 4.5 mmol/L (3.5-5.1) 03/16/23 21:50 Chloride 95 mmol/L (98-107) L 03/16/23 21:50 Carbon Dioxide 30 mmol/L (22-29) H 03/16/23 21:50 Anion Gap 14.5 (5-19) 03/16/23 21:50 BUN 17 mg/dL (6-20) 03/16/23 21:50 Creatinine 0.6 mg/dL (0.5-0.9) 03/16/23 21:50 GFR Calculation 102.7 mL/min (90-130) 03/16/23 21:50 Glucose 438 mg/dL (65-115) H 03/16/23 21:50 POC Glucose 416 mg/dL (70-110) H 03/16/23 21:46 Calculated Osmolality 300 mOsm/kg (285-295) H 03/16/23 21:50 Calcium 10.0 mg/dL (8.5-10.5) 03/16/23 21:50 Total Bilirubin 0.3 mg/dL (0.15-1.2) 03/16/23 21:50 AST 16 U/L (0-32) 03/16/23 21:50 ALT 18 U/L (0-33) 03/16/23 21:50 Alkaline Phosphatase 249 U/L (35-105) H 03/16/23 21:50 Total Protein 7.6 g/dL (6.6-8.7) 03/16/23 21:50 Albumin 4.0 g/dL (3.5-5.2) 03/16/23 21:50 Globulin 3.6 g/dL (1.3-4.6) 03/16/23 21:50 Lipase 14 U/L (13-60) 03/16/23 21:50 Urine Color Yellow (Yellow) 03/16/23 22:34 Urine Appearance Clear (CLEAR) 03/16/23 22:34 Urine pH 5 (5-7) 03/16/23 22:34 Ur Specific [place] 1.015 (1.005-1.030) 03/16/23 22:34 Urine Protein Neg (Negative) 03/16/23 22:34 Urine Glucose (UA) 4+ (Normal) H 03/16/23 22:34 Urine Ketones 1+ (Negative) H 03/16/23 22:34 Urine Blood Neg (Negative) 03/16/23 22:34 Urine Nitrate Negative (Negative) 03/16/23 22:34 Urine Bilirubin Neg (Negative) 03/16/23 22:34 Urine Urobilinogen Norm mg/dL (Negative) 03/16/23 22:34 Ur Leukocyte Esterase Trace (Negative) H 03/16/23 22:34 Urine RBC 0-4 /hpf (0-2) H 03/16/23 22:34 Urine WBC 10-15 /hpf (0-5) H 03/16/23 22:34 Ur Squamous Epith Cells 10-15 /hpf (0-5) H 03/16/23 22:34 Amorphous Sediment Not Reportable 03/16/23 22:34 Urine Bacteria Trace /hpf (NONE) 03/16/23 22:34 Urine Yeast Trace /hpf 03/16/23 22:34 Serum Ketones Negative (Negative) 03/16/23 21:50 Discharge Plan Discharge Patient Disposition: Home Clinical Impression: Hyperglycemia due to type 2 diabetes mellitus, Nausea & vomiting Condition: Stable Prescriptions: New promethazine 25 mg tablet 25 mg PO TID PRN (Reason: nausea and vomiting) Qty: 20 0RF No Action ibuprofen [IBU-200] 200 mg tablet 200 mg PO Q6H PRN amitriptyline 25 mg tablet 25 mg PO DAILY methocarbamol 750 mg tablet 750 mg PO BID Qty: 60 0RF tacrolimus 1 mg capsule See Rx Instructions .ROUTE .COMPLEX Rx Instructions: 2mg po qam and 1mg po qpm insulin aspart U-100 [Novolog FlexPen U-100 Insulin] 100 unit/mL (3 mL) Insulin Pen See Rx Instructions .ROUTE .COMPLEX Rx Instructions: sliding scale with meals Lantus Solostar U-100 Insulin 100 unit/mL (3 mL) insulin pen 30 unit SUBCUT BEDTIME methocarbamol 750 mg tablet 750 mg PO Q8H PRN (Reason: Muscle spasms and pain) Qty: 20 0RF diclofenac sodium 75 mg tablet,delayed release (DR/EC) 75 mg PO Q12H PRN (Reason: pain) Qty: 20 0RF hydrocodone-acetaminophen 5-325 mg tablet 1 tab PO BID PRN (Reason: pain (scale score 7-10)) Qty: 7 0RF Discharge Orders: Discharge ED (Routine); Ordered 03/17/23 Ordered By: Max Bhardwaj Referrals: Celi Horne PA [Primary Care Provider] - Discharge Diet: Advance as tolerated Discharge Activity: Resume usual activity Patient Instructions: Hyperglycemia, Acute Nausea and Vomiting (ED) Activity Restrictions/Additional Instructions: Follow-up with your doctor to discuss your elevated blood sugar and any changes you may need to your insulin. It would also be beneficial to have an ER follow-up with your primary care Promethazine has been sent to your pharmacy to help with nausea/vomiting Return to the emergency department if any rapid worsening symptoms and as needed Coding Level of Care Code ED Wallcovering Hanger for Bess Chen
[2023-03-16 21:52] LABS: Glucose Point of Care 416 mg/dL (70-110)
[2023-03-16 22:00] LABS: Basophils % 0.4 %; Eosinophils # 0.1 10^3/uL (0.0-0.8); Eosinophils % 1.1 %; Hematocrit 45.8 % (37.0-47.0); Hemoglobin 15.3 g/dL (11.5-15.3); Lymphocytes # 1.9 10^3/uL (0.8-4.8); Lymphocytes % 25.5 %; Mean Corpuscular HGB Conc 33.4 g/dL (30.0-36.0); Mean Corpuscular Volume 86.7 fl (81-99); Mean Platelet Volume 10.5 fL (7.4-10.4); Monocytes # 0.5 10^3/uL (0.2-0.9); Monocytes % 6.7 %; Nucleated Red Blood Cells % 0 %; Platelet Count 199 10^3/cmm (130-400); Red Blood Count 5.28 10^6/uL (4.1-5.3); Red Cell Distribution Width 12.6 % (12.1-15.1); White Blood Count 7.4 10^3/uL (4.0-10.0)
[2023-03-16] MEDS: sodium chloride 0.9% 1,000 ML 999 ML IV (22:00)
[2023-03-16 22:14] LABS: Ketone (Acetest) Serum Negative (Negative)
[2023-03-16 22:26] LABS: Alanine Aminotransferase 18 U/L (0-33); Alkaline Phosphatase 249 U/L (35-105); Anion Gap 14.5 (5-19); Aspartate Amino Transferase 16 U/L (0-32); Blood Urea Nitrogen 17 mg/dL (6-20); Carbon Dioxide 30 mmol/L (22-29); Chloride 95 mmol/L (98-107); Globulin 3.6 g/dL (1.3-4.6); Glomerular Filtration Rate 102.7 mL/min (90-130); Glucose 438 mg/dL (65-115); Lipase 14 U/L (13-60); Osmolality Calculated 300 mOsm/kg (285-295); Potassium 4.5 mmol/L (3.5-5.1); Sodium 135 mmol/L (136-145); Total Bilirubin 0.3 mg/dL (0.15-1.2); Total Protein 7.6 g/dL (6.6-8.7)
[2023-03-16 22:34] VITALS: BP 150/100; PULSE 87; RESP 16; O2SAT 97
[2023-03-16 22:48] LABS: Add Urine Microscopic? YES; Bilirubin Urine Neg (Negative); Blood Urine Neg (Negative); Glucose Urine UA 4+ (Normal); Ketones Urine 1+ (Negative); Leukocyte Esterase Urine Trace (Negative); Nitrate Urine Negative (Negative); Protein Urine Neg (Negative); RBC Urine 0-4 /hpf (0-2); Specific Gravity, Urine 1.015 (1.005-1.030); Urine Appearance Clear (CLEAR); Urine Color Yellow (Yellow); Urobilinogen Urine Norm (Negative); pH Urine 5 (5-7)
[2023-03-16 22:49] LABS: Bacteria Urine TRACE /hpf
[2023-03-16 22:50] LABS: Add Urine Culture? No
[2023-03-16] MEDS: promethazine 25 mg/mL SDV 1 mL IM (23:08)
[2023-03-16] MEDS: ketorolac 30 mg/mL INJ 15 MG IVP (23:51)
[2023-03-17 00:13] VITALS: BP 147/88; PULSE 68; RESP 16; O2SAT 97
[2023-03-17 00:47] VITALS: BP 147/88; PULSE 68; RESP 16; TEMP 36.7; O2SAT 97
[2023-03-18 05:13] LABS: Glucose Point of Care 286 mg/dL (70-110)
== END 2023-03-17 00:48 | disposition home or self-care (01) ==
PROVIDERS: Nurse Practitioner; Emergency Provider Family Medicine; PCP Physician Assistant
DX: E11.65 Type 2 diabetes mellitus with hyperglycemia (principal); R11.2 Nausea with vomiting, unspecified; Z79.4 Long term (current) use of insulin; Z79.621 Long term (current) use of calcineurin inhibitor; Z79.899 Other long term (current) drug therapy; Z94.0 Kidney transplant status
CPT/HCPCS: 12345; 36416; 80053; 81001; 82009; 82962; 83690; 85025; 96361; 96372; 96374; 99284; J1885; J2550; J7030

== ENCOUNTER 2023-07-30 07:11 | Emergency (ER) | payer MEDICAID, SELFPAY ==
[2023-07-30 07:17] VITALS: BP 169/98; PULSE 84; RESP 18; TEMP 36.7; O2SAT 98; BMI 20.3
--- NOTE | 2023-07-30 08:08 | W.ED.DENTAL ---
HPI - Dental/Oral General: Chief complaint: Dental/Oral Stated complaint: tooth pain, head pain Time Seen by Provider: 07/30/23 07:16 Source: patient Mode of arrival: ambulatory History of Present Illness: 57-year-old female presents emergency room with complaint of dental caries and pain and swelling. Is very reported and patient has a frontal incisor on the right mandible that has broken off at the gumline has gum tenderness no abscess no active drainage from icing the patient she initially had some muffled hearing in the right ear no drainage. She not had any fever sweats or chills. MD Complaint: tooth pain Associated symptoms: Denies fever(s) Review of Systems Const: Denies: fever(s) or chills Card: Denies: chest pain Resp: Denies: dyspnea PFSH ED PFSH: Medical History Migraines Diabetes Surgical History History of kidney transplant Family History Other Diabetes Social History Smoking and tobacco/nicotine status: never used tobacco/nicotine Physical Exam Const: COMMON NORMALS: no acute distress GENERAL APPEARANCE: cooperative and comfortable ORIENTATION/CONSCIOUSNESS: Yes awake, Yes oriented to person, Yes oriented to place and Yes oriented to time HENMT: COMMON NORMALS: normocephalic, atraumatic, hearing grossly normal bilaterally, EAC's normal, TM's normal bilaterally and Normal nasal mucous membranes and turbinates present HEAD & SCALP: normocephalic and atraumatic NOSE: Normal nasal mucous membranes and turbinates present EXTERNAL EAR: Yes external ear abnormal (Bilaterally cerumen impaction) EXTERNAL AUDITORY CANAL: EAC's normal TYMPANIC MEMBRANE: TM's normal bilaterally Neck/C-Spine: COMMON NORMALS: full ROM, no lymphadenopathy, supple and no JVD Lymph: LYMPHATIC: no lymphadenopathy noted and no lymphedema noted Resp: COMMON NORMALS: normal respiratory effort, No retractions, No use of accessory muscles and clear to auscultation bilaterally AUSCULTATION: clear to auscultation bilaterally Cardio: COMMON NORMALS: no JVD, regular rate, regular rhythm and No murmurs present (Cardio) RATE: regular rate RHYTHM: regular rhythm Extremity: COMMON NORMALS: normal to inspection, capillary refill normal, no clubbing, cyanosis or edema, no calf tenderness and no pedal edema Neuro: SENSORIUM/ORIENTATION: Yes oriented to person, Yes oriented to place and Yes oriented to time Skin: COMMON NORMALS: no rashes or lesions noted GENERAL SKIN EXAM: no rashes or lesions noted Course Vital Signs: Vital signs: Vital Signs Temperature 98.1 F 07/30/23 07:17 Pulse Rate 84 07/30/23 07:17 Respiratory Rate 18 07/30/23 07:17 Blood Pressure 169/98 07/30/23 07:17 Pulse Oximetry 98 07/30/23 07:17 Oxygen Delivery Me thod Room Air 07/30/23 07:17 MDM - Dental/Oral Medical Decision Making No submandibular swelling or fullness no hoarseness stridor. Will start on oral antibiotics diclofenac to use for pain. Follow-up with a dentist as soon as she is able Medical Records I reviewed the patient's medical records. Lab Data I reviewed the patient's lab results. No radiology studies performed this visit Discharge Plan Discharge Patient Disposition: Home Clinical Impression: Dental caries Condition: Stable Prescriptions: New diclofenac sodium 75 mg tablet,delayed release (DR/EC) 75 mg PO Q12H PRN (Reason: pain) Qty: 20 0RF amoxicillin-pot clavulanate 875-125 mg tablet 1 tab PO BID Qty: 14 0RF No Action ibuprofen [IBU-200] 200 mg tablet 200 mg PO Q6H PRN amitriptyline 25 mg tablet 25 mg PO DAILY methocarbamol 750 mg tablet 750 mg PO BID Qty: 60 0RF tacrolimus 1 mg capsule See Rx Instructions .ROUTE .COMPLEX Rx Instructions: 2mg po qam and 1mg po qpm insulin aspart U-100 [Novolog FlexPen U-100 Insulin] 100 unit/mL (3 mL) Insulin Pen See Rx Instructions .ROUTE .COMPLEX Rx Instructions: sliding scale with meals Lantus Solostar U-100 Insulin 100 unit/mL (3 mL) insulin pen 30 unit SUBCUT BEDTIME methocarbamol 750 mg tablet 750 mg PO Q8H PRN (Reason: Muscle spasms and pain) Qty: 20 0RF diclofenac sodium 75 mg tablet,delayed release (DR/EC) 75 mg PO Q12H PRN (Reason: pain) Qty: 20 0RF hydrocodone-acetaminophen 5-325 mg tablet 1 tab PO BID PRN (Reason: pain (scale score 7-10)) Qty: 7 0RF promethazine 25 mg tablet 25 mg PO TID PRN (Reason: nausea and vomiting) Qty: 20 0RF Discharge Orders: Discharge ED (Routine); Ordered 07/30/23 Ordered By: Sean Ross Referrals: Celi Horne PA [Primary Care Provider] - Discharge Diet: Soft Mechanical Discharge Activity: Resume usual activity Patient Instructions: Dental Abscess (ED), Opioid Safety, Pain Management Activity Restrictions/Additional Instructions: Thank you for choosing [facility] for your healthcare needs today. Please realize this is an emergency room and that we are providing you with a medical screening exam and this may not be complete and all inclusive of all the testing and or work up that you may need to determine your ailment or severity of your illness. It is very important that you follow up as instructed or that you return to the Emergency Department should you have concerns or if your condition changes or worsens in any way. Follow-up with your dentist as soon as you are able Coding Level of Care Code ED [employer] Assembler for Bess Chen
== END 2023-07-30 08:24 | disposition home or self-care (01) ==
PROVIDERS: Emergency Provider Family Medicine; PCP Physician Assistant
DX: K02.9 Dental caries, unspecified (principal); Z79.4 Long term (current) use of insulin; E11.9 Type 2 diabetes mellitus without complications
CPT/HCPCS: 99283

== ENCOUNTER 2023-08-29 19:52 | Emergency (ER) | payer MEDICAID, SELFPAY ==
[2023-08-29 19:54] VITALS: BP 166/100; PULSE 97; RESP 18; TEMP 36.7; O2SAT 98; BMI 20.7
--- NOTE | 2023-08-29 19:59 | XRR_ITS ---
PROCEDURE INFORMATION: Exam: XR Left Hip Exam date and time: 08/29/2023 8:02 PM Age: 57 years old Clinical indication: Left hip; Patient HX: C/O persistent hip pain post fall one week ago. ; Additional info: Injury TECHNIQUE: Imaging protocol: Radiologic exam of the left hip. Views: 2 or 3 views hip with pelvis when performed. COMPARISON: CR XR hip BI 2V wo/w pel [id number] 12/10/2022 11:46 AM FINDINGS: Bones/joints: Mild osteoarthritis without evidence of fracture or subluxation. There is posttraumatic deformity of the right pubic body. There is mild osseous irregularity of the left superior pubic ramus and pubic body. If there is ongoing clinical concern, consider correlation with CT. Sacrum and coccyx are partially obscured by bowel gas/stool. Soft tissues: Grossly unremarkable. XR/XR hip LT 2-3V wo/w pel* [id number] IMPRESSION: 1. No evidence of fracture or subluxation of the left hip. 2. Mild osseous irregularity of the left superior pubic ramus and pubic body. Consider correlation with CT of the pelvis to exclude a nondisplaced fracture.
--- NOTE | 2023-08-29 20:00 | W.ED.FALL ---
HPI - Fall General: Chief Complaint: Extremity Injury, Lower Stated Complaint: Fell a week ago. hip and leg getting worse nausea Time Seen by Provider: 08/29/23 19:54 Source: patient Mode of arrival: ambulatory Limitations: no limitations History of Present Illness: 57-year-old female states that she had fell down a concrete steps 3 days ago. States she landed on her left hip she has been having left hip pain since then states pain is worsened today she is able ambulate states that hurts in her left hip and buttocks. Rates pain a 3 out of 10 it is improved with rest denies any other injuries. Associated symptoms-after fall: Denies abdominal pain, chest pain, headache(s) or neck pain Review of Systems Const: Denies: fever(s), chills, body aches or change in appetite ENMT: Denies: throat pain or dental pain Card: Denies: chest pain Resp: Denies: dyspnea GI: Denies: abdominal pain, nausea, vomiting or diarrhea Musc: Reports: extremity pain; Denies: neck pain or back pain Skin/Breast: Denies: rash Neuro: Denies: headache(s) PFSH ED PFSH: Medical History Migraines Diabetes Surgical History History of kidney transplant Family History Other Diabetes Social History Smoking and tobacco/nicotine status: never used tobacco/nicotine Physical Exam Const: COMMON NORMALS: no acute distress, patient oriented x3 and healthy appearing HENMT: COMMON NORMALS: normocephalic and atraumatic HEAD & SCALP: normocephalic and atraumatic Neck/C-Spine: COMMON NORMALS: full ROM and supple Chest: COMMONS NORMALS: normal inspection of the chest Resp: COMMON NORMALS: normal respiratory effort Cardio: COMMON NORMALS: regular rate, regular rhythm and No murmurs present (Cardio) RATE: regular rate RHYTHM: regular rhythm Extremity: COMMON NORMALS: full ROM NARRATIVE EXTREMITY EXAM: Tenderness to left buttocks no obvious deformity Neuro: COMMON NORMALS: patient oriented x3, moves all extremities and no focal motor deficits Psych: COMMON NORMALS: mental status grossly normal, Normal thought process present and cooperative THOUGHT PROCESS: Normal thought process present Skin: COMMON NORMALS: no rashes or lesions noted and no wounds GENERAL SKIN EXAM: no rashes or lesions noted Course Vital Signs: Vital signs: Vital Signs Temperature 98.1 F 08/29/23 19:54 Pulse Rate 97 08/29/23 19:54 Respiratory Rate 18 08/29/23 19:54 Blood Pressure 166/100 08/29/23 19:54 Pulse Oximetry 98 08/29/23 19:54 Oxygen Delivery Me thod Room Air 08/29/23 19:54 MDM - Fall Medical Decision Making Patient presents here with left hip contusion from a fall x-ray shows no fracture patient stable for discharge follow-up PCP return if worsening. Medical Records I reviewed the patient's medical records. XR interpretation done by ED provider, pending radiology final review ED provider radiology interpretation(s): xr left hip: no acute fx Discharge Plan Discharge Patient Disposition: Home Clinical Impression: Fall Contusion of left hip Qualifiers: Encounter type: initial encounter Qualified Code(s): S70.02XA - Contusion of left hip, initial encounter Condition: Stable Prescriptions: New Naprosyn 500 mg tablet 500 mg PO BID PRN (Reason: pain) Qty: 20 0RF No Action ibuprofen [IBU-200] 200 mg tablet 200 mg PO Q6H PRN amitriptyline 25 mg tablet 25 mg PO DAILY methocarbamol 750 mg tablet 750 mg PO BID Qty: 60 0RF tacrolimus 1 mg capsule See Rx Instructions .ROUTE .COMPLEX Rx Instructions: 2mg po qam and 1mg po qpm insulin aspart U-100 [Novolog FlexPen U-100 Insulin] 100 unit/mL (3 mL) Insulin Pen See Rx Instructions .ROUTE .COMPLEX Rx Instructions: sliding scale with meals Lantus Solostar U-100 Insulin 100 unit/mL (3 mL) insulin pen 30 unit SUBCUT BEDTIME methocarbamol 750 mg tablet 750 mg PO Q8H PRN (Reason: Muscle spasms and pain) Qty: 20 0RF diclofenac sodium 75 mg tablet,delayed release (DR/EC) 75 mg PO Q12H PRN (Reason: pain) Qty: 20 0RF hydrocodone-acetaminophen 5-325 mg tablet 1 tab PO BID PRN (Reason: pain (scale score 7-10)) Qty: 7 0RF promethazine 25 mg tablet 25 mg PO TID PRN (Reason: nausea and vomiting) Qty: 20 0RF diclofenac sodium 75 mg tablet,delayed release (DR/EC) 75 mg PO Q12H PRN (Reason: pain) Qty: 20 0RF amoxicillin-pot clavulanate 875-125 mg tablet 1 tab PO BID Qty: 14 0RF Discharge Orders: Discharge ED (Routine); Ordered 08/29/23 Ordered By: Pina Grewal Referrals: Celi Horne PA [Primary Care Provider] - 1-3 days Discharge Diet: Advance as tolerated Discharge Activity: Resume usual activity Patient Instructions: Contusion in Adults (ED) Coding Level of Care Code ED Rehabilitation Services Director for [facility]
[2023-08-29] MEDS: HYDROcodone-acetaminophen 5-325 mg Tablet 1 TAB PO (20:09)
[2023-08-29] MEDS: ondansetron 4 MG Tablet PO (20:09)
== END 2023-08-29 20:40 | disposition home or self-care (01) ==
PROVIDERS: Emergency Provider Emergency Medicine; PCP Physician Assistant
DX: S70.02XA Contusion of left hip, initial encounter (principal); Z79.4 Long term (current) use of insulin; E11.9 Type 2 diabetes mellitus without complications; W10.8XXA Fall (on) (from) other stairs and steps, initial encounter
CPT/HCPCS: 73502; 99283; Q0162

== ENCOUNTER 2023-10-31 12:33 | Emergency (ER) | payer MEDICAID, SELFPAY ==
[2023-10-31 12:36] VITALS: BP 165/103; PULSE 119; RESP 18; TEMP 36.6; O2SAT 98; BMI 19.5
--- NOTE | 2023-10-31 14:17 | CTR_ITS ---
PROCEDURE INFORMATION: Exam: CT Cervical Spine Without Contrast Exam date and time: 10/31/2023 3:05 PM Age: 57 years old Clinical indication: Injury or trauma; Fall; Blunt trauma; Additional info: Trauma, midline tenderness TECHNIQUE: Imaging protocol: Computed tomography of the cervical spine without contrast. Radiation optimization: All CT scans at this facility use at least one of these dose optimization techniques: automated exposure control; mA and/or kV adjustment per patient size (includes targeted exams where dose is matched to clinical indication); or iterative reconstruction. COMPARISON: CT cervical spin wo con* [id number] 11/04/2017 8:35 PM RADIATION DOSE METRICS: Total DLP (mGy-cm): 156.57 FINDINGS: Bones/joints: Cervical vertebral body heights appear maintained. Coronal images demonstrate a mild dextroscoliosis lower cervical spine. Sagittal images demonstrate straightening of the cervical curvature along with mild reversal lower cervical spine. Spondylotic change noted along with moderate to severe degenerative disc disease C6-C7. No fracture or subluxation is seen. No significant or severe spinal stenosis. Lungs: Visualized lung apices appear unremarkable. Soft tissues: No acute paravertebral soft tissue abnormality. CT/CT cervical spin wo con* [id number] IMPRESSION: Spondylotic change with degenerative disc disease C6-C7. No fracture or subluxation.
--- NOTE | 2023-10-31 14:17 | XRR_ITS ---
PROCEDURE INFORMATION: Exam: XR Pelvis Exam date and time: 10/31/2023 3:05 PM Age: 57 years old Clinical indication: Injury or trauma; Fall; Blunt trauma (contusions or hematomas); Bilateral; Pelvic region TECHNIQUE: Imaging protocol: Radiologic exam of the pelvis. Views: 1 or 2 view. COMPARISON: CR XR hip LT 2-3V wo/w pel* [id number] 08/29/2023 8:02 PM FINDINGS: Bones/joints: Old posttraumatic change of the pubic symphysis region when correlated with prior exam. No acute fracture or diastasis is seen about the pelvis. No acute fracture or dislocation is seen about the hips. Mild degenerative change. Soft tissues: No significant focal soft tissue abnormality. XR/XR pelvis 1-2V* [id number] IMPRESSION: Suggestion of old posttraumatic change pubic symphysis region when correlated with prior exam. No acute fracture identified.
--- NOTE | 2023-10-31 14:17 | XRR_ITS ---
PROCEDURE INFORMATION: Exam: XR Lumbosacral Spine Exam date and time: 10/31/2023 3:05 PM Age: 57 years old Clinical indication: Injury or trauma; Fall; Blunt trauma (contusions or hematomas) TECHNIQUE: Imaging protocol: Radiologic exam of the lumbosacral spine. Views: 2 or 3 views. COMPARISON: CR (PELVIS, ) 10/31/2023 3:05 PM FINDINGS: Bones/joints: Lumbar vertebral body heights appear maintained. No fracture or compression deformity. Alignment appears unremarkable. No significant spondylolisthesis or subluxation. Disc spaces appear maintained. Mild spondylotic change lower lumbar facets. Sacroiliac joints and sacrum show no acute abnormality. Soft tissues: No significant focal soft tissue abnormality. XR/XR lumbar spine 2-3V* [id number] IMPRESSION: No fracture or subluxation is seen.
--- NOTE | 2023-10-31 14:19 | ED_ITS ---
HPI - Back Pain/Injury 2 General: Chief Complaint: Back Pain/Injury Stated Complaint: Neck/Back pain Time Seen by Provider: 10/31/23 13:09 History of Present Illness: 57-year-old female presents emergency de partment with chief complaint of fall with resulting injuries and nausea. The fall occurred 5 days ago. She tripped over a rug while going into a donut shop. She says she does not remember exactly how she landed but it was more of a jolt than a direct blow. She reports she went home and laid on the couch. Unfortunately, she says he has not really gone away. Each time she tried to get up and move she got nauseated and vomited. She has had neck pain and low back pain. She is wondering whether the pain itself is causing the nausea. She says she can stand and when she does so she sometimes feels lightheaded or dizzy which also exacerbates her nausea. She is not describing any vertigo. She denies any weakness, numbness, tingling. She did not hit her head at all. She is not on blood thinners. She does have a history of kidney transplant and does take medication for this. She reports she probably has had a little bit of decreased p.o. intake. Her pulse on arrival was 119. Her urine output has been normal. She is diabetic. Unsure what glucose has been. Denies feeling heartburn or GERD. No chest pain shortness of breath, abnormal stools, wounds, rashes, lacerations. No new med changes. Associated symptoms: Deny abdominal pain, chills, dysuria, fever(s) or syncope Review of Systems 2 General: Reports: 10 or more systems reviewed and unremarkable except in HPI and below Const: Denies: fever(s) or chills Eyes: Denies: change in vision ENMT: Denies: throat pain Card: Denies: chest pain, edema or syncope Resp: Denies: dyspnea or productive cough GI: Denies: abdominal pain or diarrhea : Denies: flank pain, dysuria or urinary frequency Musc: Denies: extremity pain or extremity swelling Skin/Breast: Denies: rash or erythema Neuro: Denies: headache(s), numbness in extremities, weakness in extremities or lack of coordination PFS ED 2 PFSH: Medical History Migraines Diabetes Surgical History History of kidney transplant Family History Other Diabetes Social History Smoking and tobacco/nicotine status: never used tobacco/nicotine Physical Exam 2 Narrative: EXAM NARRATIVE: Patient is in no distress. She is polite, alert, fully oriented. No limitations in the exam. Patient has decreased skin turgor. She still has mucous membranes that are moist. Her radial pulses 1+. She is able to flex, extend, rotate her neck and spine without any apparent guarding or limitations. She does have tenderness to the cervical spine and the lower one third. She also has some mild tenderness in the middle of her lumbar spine. No thoracic tenderness. She has some tenderness over the SI joints as well. Her heart rate is 98 bpm. She is not in any respiratory distress. The abdomen is soft and nontender. She does have some JVD but is resting supine. Const: COMMON NORMALS: no limitations, alert and well nourished EXAM LIMITATIONS: no altered mental status HENMT: COMMON NORMALS: normocephalic, atraumatic and external ears normal H EAD & SCALP: normocephalic and atraumatic EXTERNAL EAR: Yes external ears normal MOUTH: no muffled voice Eye: COMMON NORMALS: EOMs intact bilaterally, conjunctivae normal and no scleral icterus CONJUNCTIVA: Yes conjunctivae normal Neck/C-Spine: GENERAL: Yes normal visual inspection and Yes trachea midline Resp: COMMON NORMALS: normal respiratory effort, No use of accessory muscles and clear to auscultation bilaterally AUSCULTATION: clear to auscultation bilaterally Cardio: COMMON NORMALS: regular rhythm RHYTHM: regular rhythm GI: COMMON NORMALS: Soft to palpation and non-tender PALPATION: Yes Soft to palpation and No Guarding due to palpation present (GI) Extremity: COMMON NORMALS: normal to inspection Neuro: COMMON NORMALS: moves all extremities, no focal motor deficits and no sensory deficits noted SENSORIUM/ORIENTATION: Yes alert SPEECH: speech normal Psych: COMMON NORMALS: mental status grossly normal, Normal thought process present, cooperative, normal affect and speech normal SPEECH: Yes normal speech THOUGHT PROCESS: Normal thought process present Skin: COMMON NORMALS: no rashes or lesions noted, turgor normal and no jaundice GENERAL SKIN EXAM: no rashes or lesions noted and turgor normal Course 2 Vital Signs: Vital signs: Vital Signs Temperature 97.8 F 10/31/23 12:36 Pulse Rate 119 H 10/31/23 12:36 Respiratory Rate 17 10/31/23 14:52 Blood Pressure 165/103 10/31/23 12:36 Pulse Oximetry 97 10/31/23 14:52 Oxygen Delivery Me thod Room Air 10/31/23 12:36 MDM - Back Pain/Injury Medical Decision Making Patient tripped over a rug and was jolted . She says she believes she caught herself on her hands and knees. She does not have any pain to the knees hands or wrists. She feels like she got whiplash in her neck and strained her low back. We are going to CT her neck and x-ray her back. The rest of her trauma exam is unremarkable. She does not seem to have any explanation for the vomiting. She does have a renal transplant and is on rejection meds and has a history of diabetes. I am going to go ahead and run some IV fluids and check a CBC and CMP. Check UA. UPDATE: Glucose 335 with glucose in urine but not DKA. ? gastroparesis Patient admitted she's out of short acting insulin. CT neck and xrays pelvis/lumbar are w/o bony injury. There is noted DDD C6-C7. Patient states morhpine helped with pain but made her nauseated again--giving some phenergan po. Will d/c with muscle relaxer, insulin refill, nausea med. Labs 10/31/23 14:48 10/31/23 14:48 Radiology Impressions Cervical Spine CT 10/31/23 14:17 IMPRESSION: Spondylotic change with degenerative disc disease C6-C7. No fracture or subluxation. Lumbar Spine X-Ray 10/31/23 14:17 IMPRESSION: No fracture or subluxation is seen. Pelvis X-Ray 10/31/23 14:17 IMPRESSION: Suggestion of old posttraumatic change pubic symphysis region when correlated with prior exam. No acute fracture identified. Laboratory Results WBC 7.79 10^3/uL (3.29-11.43) 10/31/23 14:48 RBC 4.99 10^6/uL (3.85-5.65) 10/31/23 14:48 Hgb 14.60 g/dL (11.27-16.99) 10/31/23 14:48 Hct 43.4 % (36-47) 10/31/23 14:48 MCV 87.0 fl (85-98) 10/31/23 14:48 MCH 29.3 pg (27-33) 10/31/23 14:48 MCHC 33.6 g/dL (30-55) 10/31/23 14:48 RDW 12.8 % (12.1-15.1) 10/31/23 14:48 Plt Count 188 10^3/cmm (157-399) 10/31/23 14:48 MPV 10.5 fL (7.4-10.4) H 10/31/23 14:48 Neut % (Auto) 73.9 % 10/31/23 14:48 Lymph % (Auto) 19.3 % 10/31/23 14:48 [place] % (Auto) 5.5 % 10/31/23 14:48 Eos % (Auto) 0.6 % 10/31/23 14:48 Baso % (Auto) 0.4 % 10/31/23 14:48 Neut # (Auto) 5.76 10^3/uL (1.8-7.7) 10/31/23 14:48 Lymph # (Auto) 1.5 10^3/uL (0.8-4.8) 10/31/23 14:48 [place] # (Auto) 0.4 10^3/uL (0.2-0.9) 10/31/23 14:48 Eos # (Auto) 0.1 10^3/uL (0.0-0.8) 10/31/23 14:48 Baso # (Auto) 0.0 10^3/uL (0.0-0.1) 10/31/23 14:48 Nucleated RBC % (auto) 0 % 10/31/23 14:48 Nucleated RBCs # 0.0 /100WBC 10/31/23 14:48 Sodium 137 mmol/L (136-145) 10/31/23 14:48 Potassium 4.6 mmol/L (3.5-5.1) 10/31/23 14:48 Chloride 99 mmol/L (98-107) 10/31/23 14:48 Carbon Dioxide 26 mmol/L (22-29) 10/31/23 14:48 Anion Gap 16.6 (5-19) 10/31/23 14:48 BUN 21 mg/dL (6-20) H 10/31/23 14:48 Creatinine 0.5 mg/dL (0.5-0.9) 10/31/23 14:48 GFR Calculation 126.7 mL/min (90-130) 10/31/23 14:48 Glucose 335 mg/dL (65-115) H 10/31/23 14:48 Calculated Osmolality 300 mOsm/kg (285-295) H 10/31/23 14:48 Calcium 10.2 mg/dL (8.5-10.5) 10/31/23 14:48 Total Bilirubin 0.2 mg/dL (0.15-1.2) 10/31/23 14:48 AST 30 U/L (0-32) 10/31/23 14:48 ALT 36 U/L (0-33) H 10/31/23 14:48 Alkaline Phosphatase 237 U/L (35-105) H 10/31/23 14:48 Total Protein 7.5 g/dL (6.6-8.7) 10/31/23 14:48 Albumin 4.1 g/dL (3.5-5.2) 10/31/23 14:48 Globulin 3.4 g/dL (1.3-4.6) 10/31/23 14:48 Lipase 17 U/L (13-60) 10/31/23 14:48 Urine Color Straw (Yellow) 10/31/23 14:44 Urine Appearance Clear (CLEAR) 10/31/23 14:44 Urine pH 5 (5-7) 10/31/23 14:44 Ur Specific [place] 1.015 (1.005-1.030) 10/31/23 14:44 Urine Protein Neg (Negative) 10/31/23 14:44 Urine Glucose (UA) 4+ (Normal) H 10/31/23 14:44 Urine Ketones 1+ (Negative) H 10/31/23 14:44 Urine Blood Trace (Negative) H 10/31/23 14:44 Urine Nitrate Negative (Negative) 10/31/23 14:44 Urine Bilirubin Neg (Negative) 10/31/23 14:44 Urine Urobilinogen Norm mg/dL (Negative) 10/31/23 14:44 Ur Leukocyte Esterase Negative (Negative) 10/31/23 14:44 Urine RBC Rare /hpf (0-2) 10/31/23 14:44 Urine WBC 10-15 /hpf (0-5) H 10/31/23 14:44 Ur Squamous Epith Cells 10-15 /hpf (0-5) H 10/31/23 14:44 Amorphous Sediment Not Reportable 10/31/23 14:44 Urine Bacteria 2+ /hpf (NONE) H 10/31/23 14:44 All radiology interpretation(s) finalized by discharge Discharge Plan Discharge Patient Disposition: Home Clinical Impression: Chronic hyperglycemia, Degenerative disc disease, cervical, Medication refill, Nausea Condition: Stable Prescriptions: New Novolog FlexPen U-100 Insulin 100 unit/mL (3 mL) insulin pen See Rx Instructions .ROUTE .COMPLEX Qty: 15 2RF Rx Instructions: Sliding Scale with meals. 5U Glucose <150 7U Glucose 150-250 9U Glucose >250 promethazine 25 mg tablet 25 mg PO TID PRN (Reason: nausea and vomiting) Qty: 14 0RF Continued insulin aspart U-100 [Novolog FlexPen U-100 Insulin] 100 unit/mL (3 mL) Insulin Pen See Rx Instructions .ROUTE .COMPLEX Rx Instructions: sliding scale with meals Lantus Solostar U-100 Insulin 100 unit/mL (3 mL) insulin pen 30 unit SUBCUT BEDTIME Discontinued ibuprofen [IBU-200] 200 mg tablet 200 mg PO Q6H PRN diclofenac sodium 75 mg tablet,delayed release (DR/EC) 75 mg PO Q12H PRN (Reason: pain) Qty: 20 0RF hydrocodone-acetaminophen 5-325 mg tablet 1 tab PO BID PRN (Reason: pain (scale score 7-10)) Qty: 7 0RF promethazine 25 mg tablet 25 mg PO TID PRN (Reason: nausea and vomiting) Qty: 20 0RF diclofenac sodium 75 mg tablet,delayed release (DR/EC) 75 mg PO Q12H PRN (Reason: pain) Qty: 20 0RF amoxicillin-pot clavulanate 875-125 mg tablet 1 tab PO BID Qty: 14 0RF naproxen [Naprosyn] 500 mg tablet 500 mg PO BID PRN (Reason: pain) Qty: 20 0RF No Action amitriptyline 25 mg tablet 25 mg PO DAILY methocarbamol 750 mg tablet 750 mg PO BID Qty: 60 0RF tacrolimus 1 mg capsule See Rx Instructions .ROUTE .COMPLEX Rx Instructions: 2mg po qam and 1mg po qpm methocarbamol 750 mg tablet 750 mg PO Q8H PRN (Reason: Muscle spasms and pain) Qty: 20 0RF Discharge Orders: Discharge ED (Routine); Ordered 10/31/23 Ordered By: Cedric Huerta Referrals: Celi Horne PA [Primary Care Provider] - 7-10 days Patient Instructions: Hyperglycemia, Degenerative Disc Disease (ED), Pain Management, Vomiting - Adult Activity Restrictions/Additional Instructions: Please read all discharge instructions and abide by recommendations and return precautions. Make an appointment to follow-up with your primary care doctor as directed for follow-up. Return to ER if getting worse or other emergent symptoms. Coding Level of Care Code ED Brand Executive for [facility]
[2023-10-31] MEDS: lactated ringers 1,000 ML 999 ML IV (14:49)
[2023-10-31 14:52] VITALS: RESP 17; O2SAT 97
[2023-10-31] MEDS: morphine 4 mg/mL SDV 1 mL IVP (14:52)
[2023-10-31] MEDS: ondansetron 2 mg/ML SDV 2 mL 4 MG IVP (14:52)
[2023-10-31 14:55] LABS: Basophils % 0.4 %; Eosinophils # 0.1 10^3/uL (0.0-0.8); Eosinophils % 0.6 %; Hematocrit 43.4 % (36-47); Lymphocytes # 1.5 10^3/uL (0.8-4.8); Lymphocytes % 19.3 %; Mean Corpuscular HGB Conc 33.6 g/dL (30-55); Mean Corpuscular Hemoglobin 29.3 pg (27-33); Mean Platelet Volume 10.5 fL (7.4-10.4); Monocytes # 0.4 10^3/uL (0.2-0.9); Monocytes % 5.5 %; Neutrophils # 5.76 10^3/uL (1.8-7.7); Neutrophils % 73.9 %; Nucleated Red Blood Cells % 0 %; Platelet Count 188 10^3/cmm (157-399); Red Blood Count 4.99 10^6/uL (3.85-5.65); Red Cell Distribution Width 12.8 % (12.1-15.1); White Blood Count 7.79 10^3/uL (3.29-11.43)
[2023-10-31 15:32] LABS: Specific Gravity, Urine 1.015 (1.005-1.030); Urine Appearance Clear (CLEAR); Urine Color Straw (Yellow); pH Urine 5 (5-7)
[2023-10-31 15:33] LABS: Add Urine Microscopic? YES; Bacteria Urine 2+ /hpf; Bilirubin Urine Neg (Negative); Blood Urine Trace (Negative); Glucose Urine UA 4+ (Normal); Ketones Urine 1+ (Negative); Leukocyte Esterase Urine Negative (Negative); Nitrate Urine Negative (Negative); Protein Urine Neg (Negative); RBC Urine RARE /hpf (0-2); Urobilinogen Urine Norm (Negative)
[2023-10-31 15:34] LABS: Add Urine Culture? No
[2023-10-31 15:46] LABS: Alanine Aminotransferase 36 U/L (0-33); Albumin Level 4.1 g/dL (3.5-5.2); Alkaline Phosphatase 237 U/L (35-105); Aspartate Amino Transferase 30 U/L (0-32); Blood Urea Nitrogen 21 mg/dL (6-20); Calcium 10.2 mg/dL (8.5-10.5); Carbon Dioxide 26 mmol/L (22-29); Chloride 99 mmol/L (98-107); Creatinine Clr Calc Pharmacy 99.5122; Globulin 3.4 g/dL (1.3-4.6); Glomerular Filtration Rate 126.7 mL/min (90-130); Glucose 335 mg/dL (65-115); Lipase 17 U/L (13-60); Osmolality Calculated 300 mOsm/kg (285-295); Sodium 137 mmol/L (136-145); Total Bilirubin 0.2 mg/dL (0.15-1.2); Total Protein 7.5 g/dL (6.6-8.7)
[2023-10-31 15:59] LABS: Anion Gap 16.6 (5-19); Potassium 4.6 mmol/L (3.5-5.1)
[2023-10-31] MEDS: promethazine 25 mg Tablet PO (16:35)
[2023-10-31] MEDS: insulin regular-human 100 units/1 mL 7 UNIT IVP (16:36)
== END 2023-10-31 17:01 | disposition home or self-care (01) ==
PROVIDERS: Emergency Provider Emergency Medicine; PCP Physician Assistant
DX: M50.30 Other cervical disc degeneration, unspecified cervical region (principal); Z76.0 Encounter for issue of repeat prescription; R11.0 Nausea; E11.65 Type 2 diabetes mellitus with hyperglycemia; Z79.4 Long term (current) use of insulin; Z94.0 Kidney transplant status
CPT/HCPCS: 72100; 72125; 72170; 80053; 81001; 83690; 85025; 96361; 96374; 96375; 99285; J1815; J2270; J2405; J7120; Q0169

== ENCOUNTER 2023-12-19 17:14 | Emergency (ER) | payer MEDICAID, SELFPAY ==
[2023-12-19 17:17] VITALS: BP 140/87; PULSE 102; RESP 17; TEMP 36.9; O2SAT 95; BMI 19.8
--- NOTE | 2023-12-19 17:30 | XRR_ITS ---
PROCEDURE INFORMATION: Exam: XR Left Hip Exam date and time: 12/19/2023 5:48 PM Age: 58 years old Clinical indication: Hip pain; Left hip; Patient HX: Lt hip/low back pain w lt sciatica; Post fall x 1 mo ago TECHNIQUE: Imaging protocol: Radiologic exam of the left hip. Views: 2 or 3 views hip with pelvis when performed. COMPARISON: CR XR pelvis 1-2V* [id number] 10/31/2023 3:05 PM FINDINGS: Bones/joints: No evidence of fracture or subluxation. Mild osteoarthritis of both hips. Sacrum and coccyx are partially obscured by bowel gas/stool. Pelvic ring is grossly intact. Bony demineralization compatible with osteopenia or osteoporosis. Soft tissues: No gross soft tissue abnormality. Clips in the right lower quadrant. XR/XR hip LT 2-3V wo/w pel* [id number] IMPRESSION: 1. No evidence of fracture or subluxation. If there is ongoing clinical concern, consider correlation with CT.
--- NOTE | 2023-12-19 17:30 | XRR_ITS ---
PROCEDURE INFORMATION: Exam: XR Lumbosacral Spine Exam date and time: 12/19/2023 5:48 PM Age: 58 years old Clinical indication: Lumbago with sciatica; Left; Patient HX: Lt hip/low back pain w lt sciatica; Post fall x 1 mo ago TECHNIQUE: Imaging protocol: Radiologic exam of the lumbosacral spine. Views: 2 or 3 views. COMPARISON: CR (PELVIS, ) 12/19/2023 5:48 PM FINDINGS: Bones/joints: No evidence of acute fracture or subluxation of the lumbar spine. Osseous irregularity of the dorsum of the lower sacrum raising the question of a subacute-chronic infarct. Consider correlation with dedicated CT of the pelvis. Soft tissues: Grossly unremarkable. XR/XR lumbar spine 2-3V* [id number] IMPRESSION: 1. No evidence of acute fracture or subluxation of the lumbar spine. 2. Osseous irregularity of the dorsum of the lower sacrum raising the question of a subacute-chronic infarct. Consider correlation with dedicated CT of the pelvis.
== END 2023-12-19 20:00 | disposition left against medical advice (07) ==
PROVIDERS: Emergency Provider Family Medicine; PCP Physician Assistant
DX: Z53.21 Procedure and treatment not carried out due to patient leaving prior to being seen by health care provider (principal)
CPT/HCPCS: 72100; 73502; 99284

== ENCOUNTER 2024-01-05 15:24 | Emergency (ER) | payer MEDICAID, SELFPAY ==
[2024-01-05 15:45] VITALS: BP 145/88; PULSE 102; RESP 14; TEMP 36.9; O2SAT 98
[2024-01-05 16:42] LABS: Basophils % 0.6 %; Eosinophils # 0.1 10^3/uL (0.0-0.8); Eosinophils % 1.4 %; Hematocrit 40.5 % (36-47); Lymphocytes # 2.1 10^3/uL (0.8-4.8); Lymphocytes % 30.5 %; Mean Corpuscular HGB Conc 33.6 g/dL (30-55); Mean Corpuscular Hemoglobin 29.3 pg (27-33); Mean Corpuscular Volume 87.3 fl (85-98); Mean Platelet Volume 10.5 fL (7.4-10.4); Monocytes # 0.6 10^3/uL (0.2-0.9); Monocytes % 7.9 %; Neutrophils # 4.11 10^3/uL (1.8-7.7); Neutrophils % 59.3 %; Nucleated Red Blood Cells % 0 %; Platelet Count 223 10^3/cmm (157-399); Red Blood Count 4.64 10^6/uL (3.85-5.65); Red Cell Distribution Width 12.8 % (12.1-15.1); White Blood Count 6.94 10^3/uL (3.29-11.43)
--- NOTE | 2024-01-05 17:07 | ED_ITS ---
HPI - Back Pain/Injury 2 General: Chief Complaint: Back Pain/Injury Stated Complaint: back pain and left side pain Time Seen by Provider: 01/05/24 17:06 Source: patient Mode of arrival: ambulatory Limitations: no limitations History of Present Illness: Patient is a 58-year-old female with a longstanding history of lower back pain and sciatica here for complaints of sciatica-like symptoms. She states she has intermittently had issues for years. She is hoping to get into a painter plate but has not followed up with her primary care provider for this referral. Patient states she has been on many medications previously for her back pain including NSAIDs, steroids, muscle relaxers, and opiate pain medications. She states she is cautious regarding NSAIDs as she has a history of kidney transplant. She states opiate pain medications worked the best when she can get them . She states her symptoms today feel identical to previous sciatica flares. Of note in triage patient was requesting BUN/Cr testing for her kidneys stating I have not had these tested in a while thus blood work was ordered from triage. MD elicited complaint: back pain Onset (ago): year(s) Timing: intermittent Severity: moderate Similar Symptoms Previously: Yes Location: left lower back Radiation: left upper leg Exacerbating factors: movement and walking Relieving factors: none Associated symptoms: Reports difficulty walking (sometimes due to pain); Deny abdominal pain, dysuria, fever(s), hematuria or vomiting Work related injury: No Review of Systems 2 Const: Denies: fever(s) Card: Denies: chest pain Resp: Denies: dyspnea GI: Denies: abdominal pain, vomiting or diarrhea : Denies: flank pain, dysuria or hematuria Musc: Reports: back pain; Denies: neck pain, extremity swelling, joint pain, joint swelling, joint redness, joint warmth or limited range of motion Skin/Breast: Denies: rash Neuro: Reports: difficulty walking (sometimes due to pain); Denies: headache(s), numbness in extremities, weakness in extremities or sensory changes PFSH ED 2 PFSH: Medical History Migraines Diabetes Surgical History History of kidney transplant Family History Other Diabetes Social History Smoking and tobacco/nicotine status: never used tobacco/nicotine Physical Exam 2 Const: COMMON NORMALS: no acute distress, patient oriented x3, no limitations, alert and well nourished GENERAL APPEARANCE: cooperative and appears older than stated age ORIENTATION/CONSCIOUSNESS: Yes awake, Yes oriented to person, Yes oriented to place and Yes oriented to time Eye: COMMON NORMALS: no scleral icterus Resp: COMMON NORMALS: normal respiratory effort and clear to auscultation bilaterally AUSCULTATION: clear to auscultation bilaterally Cardio: COMMON NORMALS: regular rate and regular rhythm RATE: regular rate RHYTHM: regular rhythm GI: COMMON NORMALS: Normal to inspection, nondistended, normoactive bowel sounds present, Soft to palpation, non-tender and no masses INSPECTION: Yes normal to inspection PALPATION: Yes Soft to palpation : COMMON NORMALS: Yes no CVA tenderness BLADDER/KIDNEY EXAM: Yes no CVA tenderness Back/Pelvis: COMMON NORMALS: no CVA tenderness and thoracic and lumbar spine normal to inspection LUMBAR SPINE/LOWER BACK: No lumbar spinal tenderness and Yes paraspinal muscle tenderness Lumbar paraspinal muscle tenderness: left P WILMAN: Yes sciatic notch tenderness SACROILIAC JOINTS: Yes SI joint(s) abnormal SI joint details: tender to palpation (left) SACRUM: no tenderness COCCYX: no tenderness Extremity: COMMON NORMALS: no joint enlargement, no clubbing, cyanosis or edema, no calf tenderness and no pedal edema GENERAL: Yes normal exam except as noted Neuro: COMMON NORMALS: patient oriented x3, moves all extremities, no focal motor deficits, no sensory deficits noted and gait normal S ENSORIUM/ORIENTATION: Yes alert, Yes oriented to person, Yes oriented to place and Yes oriented to time Course 2 Vital Signs: Vital signs: Vital Signs Temperature 98.4 F 01/05/24 15:45 Pulse Rate 91 01/05/24 17:09 Respiratory Rate 16 01/05/24 17:09 Blood Pressure 128/90 01/05/24 17:09 Pulse Oximetry 99 01/05/24 17:09 Oxygen Delivery Me thod Room Air 01/05/24 17:09 MDM - Back Pain/Injury Medical Decision Making Patient's history and physical exam is consistent with acute on chronic low back pain with left-sided sciatica. Blood work ordered from triage showing chronic elevations to her glucose. She also has mild elevations of her LFTs. She can follow-up with her primary care provider for these. She can also speak to them in regards to a pain management referral for her back pain. Differential Diagnosis Likely sciatica Medical Records I reviewed the patient's medical records. Labs I reviewed the patient's lab results. 01/05/24 16:33 01/05/24 16:33 Laboratory Results WBC 6.94 10^3/uL (3.29-11.43) 01/05/24 16:33 RBC 4.64 10^6/uL (3.85-5.65) 01/05/24 16:33 Hgb 13.60 g/dL (11.27-16.99) 01/05/24 16:33 Hct 40.5 % (36-47) 01/05/24 16:33 MCV 87.3 fl (85-98) 01/05/24 16:33 MCH 29.3 pg (27-33) 01/05/24 16:33 MCHC 33.6 g/dL (30-55) 01/05/24 16:33 RDW 12.8 % (12.1-15.1) 01/05/24 16:33 Plt Count 223 10^3/cmm (157-399) 01/05/24 16:33 MPV 10.5 fL (7.4-10.4) H 01/05/24 16:33 Neut % (Auto) 59.3 % 01/05/24 16:33 Lymph % (Auto) 30.5 % 01/05/24 16:33 [place] % (Auto) 7.9 % 01/05/24 16:33 Eos % (Auto) 1.4 % 01/05/24 16:33 Baso % (Auto) 0.6 % 01/05/24 16:33 Neut # (Auto) 4.11 10^3/uL (1.8-7.7) 01/05/24 16:33 Lymph # (Auto) 2.1 10^3/uL (0.8-4.8) 01/05/24 16:33 [place] # (Auto) 0.6 10^3/uL (0.2-0.9) 01/05/24 16:33 Eos # (Auto) 0.1 10^3/uL (0.0-0.8) 01/05/24 16:33 Baso # (Auto) 0.0 10^3/uL (0.0-0.1) 01/05/24 16:33 Nucleated RBC % (auto) 0 % 01/05/24 16:33 Nucleated RBCs # 0.0 /100WBC 01/05/24 16:33 Sodium 139 mmol/L (136-145) 01/05/24 16:33 Potassium 4.3 mmol/L (3.5-5.1) 01/05/24 16:33 Chloride 100 mmol/L (98-107) 01/05/24 16:33 Carbon Dioxide 29 mmol/L (22-29) 01/05/24 16:33 Anion Gap 14.3 (5-19) 01/05/24 16:33 BUN 24 mg/dL (6-20) H 01/05/24 16:33 Creatinine 0.5 mg/dL (0.5-0.9) 01/05/24 16:33 GFR Calculation 126.3 mL/min (90-130) 01/05/24 16:33 Glucose 181 mg/dL (65-115) H 01/05/24 16:33 Calculated Osmolality 297 mOsm/kg (285-295) H 01/05/24 16:33 Calcium 9.2 mg/dL (8.5-10.5) 01/05/24 16:33 Total Bilirubin 0.2 mg/dL (0.15-1.2) 01/05/24 16:33 AST 49 U/L (0-32) H 01/05/24 16:33 ALT 55 U/L (0-33) H 01/05/24 16:33 Alkaline Phosphatase 281 U/L (35-105) H 01/05/24 16:33 Total Protein 7.3 g/dL (6.6-8.7) 01/05/24 16:33 Albumin 3.8 g/dL (3.5-5.2) 01/05/24 16:33 Globulin 3.5 g/dL (1.3-4.6) 01/05/24 16:33 No radiology studies performed this visit Discharge Plan Discharge Patient Disposition: Home Clinical Impression: Chronic left-sided low back pain with sciatica Qualifiers: Sciatica laterality: sciatica of left side Qualified Code(s): M54.42 - Lumbago with sciatica, left side Condition: Stable Prescriptions: New methocarbamol 500 mg tablet 1,000 mg PO Q8H Qty: 30 0RF Medrol (Ryan) 4 mg tablets,dose pack See Rx Instructions .ROUTE .COMPLEX Qty: 21 0RF Rx Instructions: orally per package directions No Action amitriptyline 25 mg tablet 25 mg PO DAILY methocarbamol 750 mg tablet 750 mg PO BID Qty: 60 0RF tacrolimus 1 mg capsule See Rx Instructions .ROUTE .COMPLEX Rx Instructions: 2mg po qam and 1mg po qpm insulin aspart U-100 [Novolog FlexPen U-100 Insulin] 100 unit/mL (3 mL) Insulin Pen See Rx Instructions .ROUTE .COMPLEX Rx Instructions: sliding scale with meals Lantus Solostar U-100 Insulin 100 unit/mL (3 mL) insulin pen 30 unit SUBCUT BEDTIME methocarbamol 750 mg tablet 750 mg PO Q8H PRN (Reason: Muscle spasms and pain) Qty: 20 0RF Novolog FlexPen U-100 Insulin 100 unit/mL (3 mL) insulin pen See Rx Instructions .ROUTE .COMPLEX Qty: 15 2RF Rx Instructions: Sliding Scale with meals. 5U Glucose <150 7U Glucose 150-250 9U Glucose >250 promethazine 25 mg tablet 25 mg PO TID PRN (Reason: nausea and vomiting) Qty: 14 0RF Discharge Orders: Discharge ED (Routine); Ordered 01/05/24 Ordered By: Karina Jiménez Referrals: Celi Horne PA [Primary Care Provider] - Activity Restrictions/Additional Instructions: Please continue to follow-up with your primary care provider so they can place referral for pain management for your chronic lower back pain. Coding Level of Care Code ED Die Try Out Worker Stamping for Bess Chen
[2024-01-05 17:09] VITALS: BP 128/90; PULSE 91; RESP 16; O2SAT 99
[2024-01-05 17:18] LABS: Alanine Aminotransferase 55 U/L (0-33); Albumin Level 3.8 g/dL (3.5-5.2); Alkaline Phosphatase 281 U/L (35-105); Anion Gap 14.3 (5-19); Aspartate Amino Transferase 49 U/L (0-32); Blood Urea Nitrogen 24 mg/dL (6-20); Calcium 9.2 mg/dL (8.5-10.5); Carbon Dioxide 29 mmol/L (22-29); Chloride 100 mmol/L (98-107); Creatinine Clr Calc Pharmacy 100.7276; Globulin 3.5 g/dL (1.3-4.6); Glomerular Filtration Rate 126.3 mL/min (90-130); Glucose 181 mg/dL (65-115); Osmolality Calculated 297 mOsm/kg (285-295); Potassium 4.3 mmol/L (3.5-5.1); Sodium 139 mmol/L (136-145); Total Bilirubin 0.2 mg/dL (0.15-1.2); Total Protein 7.3 g/dL (6.6-8.7)
[2024-01-05] MEDS: ketorolac 30 mg/mL INJ IM (17:34)
[2024-01-05] MEDS: dexamethasone 10 mg/mL INJ 6 MG IM (17:36)
== END 2024-01-05 18:12 | disposition home or self-care (01) ==
PROVIDERS: Emergency Medicine; Emergency Provider Physician Assistant; PCP Physician Assistant
DX: G89.29 Other chronic pain (principal); M54.42 Lumbago with sciatica, left side; Z79.4 Long term (current) use of insulin; E11.9 Type 2 diabetes mellitus without complications; Z94.0 Kidney transplant status
CPT/HCPCS: 36415; 80053; 85025; 96372; 99284; J1100; J1885

== ENCOUNTER 2024-04-25 11:59 | Outpatient (CLI) | payer MEDICAID, SELFPAY ==
--- NOTE | 2024-04-25 12:15 | MR_ITS ---
WS: [id number] MRI LUMBAR SPINE NONCONTRAST TECHNIQUE: Sagittal T1, T2 and STIR imaging. Axial T1 and T2 imaging. CLINICAL INFORMATION: SPINAL STENOSIS COMPARISON: MRI 10/19/2022 FINDINGS: Mild lumbar curve. No acute compression. No high-grade central canal stenosis. L1-L2: Normal. L2-L3: No significant disc bulging. Mild facet arthropathy. Spinal canal and foramen are patent. L3-L4: Mild annular bulging. Slight effacement of the ventral thecal sac. Slight narrowing of the sub articular recess bilaterally. Mild facet arthropathy. Foramen are patent. L4-L5: Mild annular bulging. Progressed small LEFT subarticular protrusion impinges the traversing LE FT L5 and proximal exiting LEFT L4 nerve roots.. Mild LEFT and no significant RIGHT foraminal narrowi ng. Moderate facet arthropathy. L5-S1: Mild annular bulging. Small canal and foramen are patent. Moderate facet arthropathy. Visualized pelvic bony structures: Normal. Paravertebral soft tissues: Normal. Similar-appearing disc protrusions in the cervical spine seen on the washing tub operator imaging C5-C6 C6-C7 and C7 -T1 with mild central canal stenosis. Thoracic kyphosis. LEFT pelvic transplant kidney. MR/MR lumbar spine wo con* [id number] IMPRESSION: 1. No high-grade central canal stenosis. 2. Mild central canal stenosis L3-L4 and L4-L5 similar to previous. 3. Progressed small subarticular disc protrusion L4-5 impinges the traversing LEFT L5 nerve root in the subarticular recess with mild LEFT foraminal narrowin g. Impingement on the exiting LEFT L4 and traversing LEFT L5 nerve roots. 4. Moderate facet arthropathy L3-L5.
== END 2024-04-25 12:00 | disposition home or self-care (01) ==
LOC: RAD 11:59
PROVIDERS: PCP Physician Assistant; Visit Provider Physician Assistant
DX: M48.061 Spinal stenosis, lumbar region without neurogenic claudication (principal); M40.204 Unspecified kyphosis, thoracic region; M51.26 Other intervertebral disc displacement, lumbar region; M47.896 Other spondylosis, lumbar region; Z94.0 Kidney transplant status
CPT/HCPCS: 72148

== ENCOUNTER 2024-08-14 18:29 | Emergency (ER) | payer MEDICAID, SELFPAY ==
[2024-08-14 18:55] VITALS: BP 160/93; PULSE 89; RESP 18; TEMP 36.7; O2SAT 98; BMI 19.5
--- NOTE | 2024-08-14 19:29 | XRR_ITS ---
PROCEDURE INFORMATION: Exam: XR Chest Exam date and time: 08/14/2024 7:34 PM Age: 58 years old Clinical indication: Other: Weakness TECHNIQUE: Imaging protocol: Radiologic exam of the chest. Views: 1 view. COMPARISON: CR XR chest 2V* [id number] 01/26/2020 4:40 PM FINDINGS: Lungs: The lungs are hyperinflated, but clear. Pleural spaces: Unremarkable. No pleural effusion. No pneumothorax. Heart/Mediastinum: Unremarkable. No cardiomegaly. Bones/joints: Unremarkable. XR/XR chest 1V portable [id number] IMPRESSION: No acute abnormality. Pulmonary emphysematous changes.
[2024-08-14 20:45] LABS: Basophils % 0.5 %; Eosinophils # 0.1 10^3/uL (0.0-0.8); Eosinophils % 1.7 %; Hematocrit 37.8 % (36-47); Lymphocytes # 2.2 10^3/uL (0.8-4.8); Lymphocytes % 35.1 %; Mean Corpuscular HGB Conc 33.1 g/dL (30-55); Mean Corpuscular Hemoglobin 28.7 pg (27-33); Mean Corpuscular Volume 86.9 fl (85-98); Mean Platelet Volume 10.5 fL (7.4-10.4); Monocytes # 0.5 10^3/uL (0.2-0.9); Monocytes % 7.1 %; Neutrophils # 3.46 10^3/uL (1.8-7.7); Neutrophils % 54.8 %; Nucleated Red Blood Cells % 0 %; Platelet Count 167 10^3/cmm (157-399); Red Blood Count 4.35 10^6/uL (3.85-5.65); Red Cell Distribution Width 12.7 % (12.1-15.1); White Blood Count 6.32 10^3/uL (3.29-11.43)
[2024-08-14 21:06] LABS: Alanine Aminotransferase 38 U/L (0-33); Albumin Level 3.6 g/dL (3.5-5.2); Alkaline Phosphatase 339 U/L (35-105); Anion Gap 16.3 (5-19); Aspartate Amino Transferase 26 U/L (0-32); Blood Urea Nitrogen 11 mg/dL (6-20); C Reactive Protein 4.2 mg/L (0.0-4.9); Calcium 9.7 mg/dL (8.5-10.5); Carbon Dioxide 26 mmol/L (22-29); Chloride 102 mmol/L (98-107); Creatinine Clr Calc Pharmacy 98.2987; Globulin 3.2 g/dL (1.3-4.6); Glomerular Filtration Rate 126.3 mL/min (90-130); Glucose 344 mg/dL (65-115); Osmolality Calculated 303 mOsm/kg (285-295); Potassium 4.3 mmol/L (3.5-5.1); Sodium 140 mmol/L (136-145); Total Bilirubin 0.2 mg/dL (0.15-1.2); Total Protein 6.8 g/dL (6.6-8.7)
[2024-08-14 21:07] LABS: Lactic Sepsis W/Reflex 1.1 mmol/L (0.5-2.2)
[2024-08-14 21:09] VITALS: BP 156/94; PULSE 79; RESP 16; O2SAT 100
[2024-08-14 21:18] LABS: Bilirubin Urine Negative (Negative); Blood Urine Negative (Negative); Glucose Urine UA 3+ (Normal); Ketones Urine 1+ (Negative); Leukocyte Esterase Urine Negative (Negative); Nitrate Urine Negative (Negative); Protein Urine 1+ (Negative); Urine Appearance Clear (CLEAR); Urine Color Yellow (Yellow); Urobilinogen Urine 0.2 mg/dL (Negative)
--- NOTE | 2024-08-14 21:38 | ED_ITS ---
HPI - Nausea/Vomiting/Diarrhea 2 General: Chief complaint: Nausea/Vomiting/Diarrhea Stated complaint: dizzy,vommiting Time Seen by Provider: 08/14/24 21:12 Source: patient Mode of arrival: ambulatory Limitations: no limitations History of Present Illness: Patient is a 58-year-old female who presents to the emergency department with multiple complaints beginning last Wednesday. She states she has been home alone his family's been on vacation, symptoms have started since then. She is reporting history of migraine headaches, she is currently have a headache but has not been controlled with medications as they normally are. She does state that this feels similar to migraines with no neurological deficits. She does note feeling dehydrated and dizzy, also has had a couple of episodes of vomiting with nausea. She has had a chronic cough that she states she has COPD. She is a diabetic, states she does not take her blood sugars regularly and has not been taking her diabetic medications recently because she does not want to drop her sugar too low. Here in the emergency department blood sugar is greater than 300. Denies any known sick contact exposure. Denying any chest pain or shortness of breath, changes in bowel or bladder habits, fevers or chills, neurological deficits, or other symptoms at this time. MD elicited complaint: nausea and vomiting Onset (ago): day(s) Associated nausea: Yes Associated abdominal pain: No Location of pain: None Associated symtoms: Reports dizziness, headache(s) and nausea; Denies change in vision, chest pain, dysuria, fatigue or palpitations Related Data Home Medications Medication Instructions Recorded Confirmed insulin aspart U-100 100 unit/mL See Rx Instructions .Route .COMPLEX 01/26/20 12/28/23 (3 mL) subcutaneous pen (Novolog FlexPen U-100 Insulin aspart) insulin glargine 100 unit/mL (3 30 unit SUBCUT BEDTIME 01/26/20 12/28/23 mL) subcutaneous pen (Lantus Solostar U-100 Insulin) tacrolimus 1 mg capsule, See Rx Instructions .Route .COMPLEX 01/26/20 12/28/23 immediate-release amitriptyline 25 mg tablet 25 mg PO DAILY 12/10/22 12/28/23 Previous Rx's Medication Instructions Recorded methocarbamol 750 mg tablet 750 mg PO BID spasm #60 tabs 12/10/22 methocarbamol 750 mg tablet 750 mg PO Q8H PRN Muscle spasms 02/24/23 and pain #20 tabs insulin aspart U-100 100 unit/mL See Rx Instructions .Route 10/31/23 (3 mL) subcutaneous pen (Novolog .COMPLEX #15 mL FlexPen U-100 Insulin aspart) promethazine 25 mg tablet 25 mg PO TID PRN nausea and 10/31/23 vomiting #14 tabs methocarbamol 500 mg tablet 1,000 mg (2 x 500 mg) PO Q8H #30 01/05/24 tabs methylprednisolone 4 mg tablets in See Rx Instructions PO .COMPLEX 01/05/24 a dose pack (Medrol (Ryan)) #21 ea Allergies Allergy/AdvReac Type Severity Reaction Status Date / Time diazepam [From Valium] Allergy Unknown Verified 01/05/24 15:50 nalbuphine [From Nubain] Allergy Unknown Verified 01/05/24 15:50 Review of Systems 2 General: Reports: 10 or more systems reviewed and unremarkable except in HPI and below Const: Reports: other (Feels dehydrated); Denies: fever(s), chills or fatigue Eyes: Denies: change in vision ENMT: Denies: throat pain, ear or mastoid pain or nasal discharge Card: Denies: chest pain, palpitations, swelling of feet/ankles or lightheadedness Resp: Reports: non-productive cough; Denies: dyspnea or wheezing GI: Reports: nausea and vomiting; Denies: abdominal pain, diarrhea or constipation : Denies: flank pain, difficulty voiding, dysuria or urinary frequency Musc: Denies: neck pain, back pain or joint pain Skin/Breast: Denies: rash Neuro: Reports: headache(s) and dizziness; Denies: numbness in extremities or weakness in extremities PFSH ED 2 PFSH: Medical History Migraines Diabetes Surgical History History of kidney transplant Family History Other Diabetes Social History Smoking and tobacco/nicotine status: never used tobacco/nicotine Physical Exam 2 Const: COMMON NORMALS: no acute distress, patient oriented x3 and no limitations GENERAL APPEARANCE: cooperative, comfortable and well developed ORIENTATION/CONSCIOUSNESS: Yes awake, Yes oriented to person, Yes oriented to place and Yes oriented to time HENMT: COMMON NORMALS: normocephalic, atraumatic and hearing grossly normal bilaterally HEAD & SCALP: normocephalic and atraumatic MOUTH: Normal oral and palatal mucosa present, lip normal and tongue normal TEETH & GINGIVA: Yes caries, Yes multiple restorations and Yes poor dentition THROAT: posterior oropharynx normal Eye: COMMON NORMALS: Equal, round and reactive pupils present, EOMs intact bilaterally and conjunctivae normal CONJUNCTIVA: Yes conjunctivae normal P UPIL: Yes Equal, round and reactive pupils present Neck/C-Spine: COMMON NORMALS: full ROM, supple and no JVD Resp: COMMON NORMALS: normal respiratory effort, No retractions, No use of accessory muscles and clear to auscultation bilaterally AUSCULTATION: clear to auscultation bilaterally Cardio: COMMON NORMALS: no JVD, regular rate, regular rhythm, No clicks present (Cardio), No murmurs present (Cardio) and No rub (Cardio) RATE: r egular rate RHYTHM: regular rhythm GI: COMMON NORMALS: Normal to inspection, nondistended, normoactive bowel sounds present, Soft to palpation and non-tender AUSCULTATION: Yes normoactive bowel sounds PALPATION: Yes Soft to palpation RECTAL EXAM: d eferred Extremity: COMMON NORMALS: normal to inspection, full ROM and capillary refill normal Neuro: COMMON NORMALS: patient oriented x3, CN's II-XII intact bilaterally, moves all extremities, no focal motor deficits and no sensory deficits noted SENSORIUM/ORIENTATION: Yes oriented to person, Yes oriented to place and Yes oriented to time Psych: COMMON NORMALS: mental status grossly normal and Normal thought process present THOUGHT PROCESS: Normal thought process present Skin: COMMON NORMALS: no rashes or lesions noted NARRATIVE SKIN EXAM: Skin turgor decreased GENERAL SKIN EXAM: no rashes or lesions noted Course 2 Vital Signs: Vital signs: Vital Signs Temperature 98.1 F 08/14/24 18:55 Pulse Rate 81 08/14/24 21:48 Respiratory Rate 16 08/14/24 21:48 Blood Pressure 145/83 08/14/24 21:48 Pulse Oximetry 98 08/14/24 21:48 Oxygen Delivery Me thod Room Air 08/14/24 21:48 MDM - Nausea/Vomiting/Diarrhea Medical Decision Making Patient presented with multiple complaints since last Wednesday, had stated this started once her family had left her for vacation. Has been seen here prior times in the ER in the past with multiple issues. History of migraines, stated this felt similar but was not going away as it usually does. No focal neurological deficits were reported. Skin turgor was decreased on exam making me think she was a little dehydrated, she does admit that she does not drink hardly any water and has been drinking even less since feeling sick. Chest x- ray unremarkable for any acute findings, her lab work was unremarkable aside from elevated blood sugar which she states she had not been taking her insulin because she thought it would drop her blood sugar too low. Viral swab was negative. I believe that her symptoms are likely to be dehydrated, she does note feeling better after receiving IV fluids Zofran and Toradol for her headache. Will have her return if her condition continues to worsen, though she is comfortable with treating conservatively at home. She will also follow-up with primary care later this week as we discussed. Will continue monitoring her blood sugars at home and take her insulin as prescribed as well. Lab Data 08/14/24 20:29 08/14/24 20:29 Radiology Impressions Chest X-Ray 08/14/24 19:29 IMPRESSION: No acute abnormality. Pulmonary emphysematous changes. Laboratory Results WBC 6.32 10^3/uL (3.29-11.43) 08/14/24 20: RBC 4.35 10^6/uL (3.85-5.65) 08/14/24 20: Hgb 12.50 g/dL (11.27-16.99) 08/14/24 20: Hct 37.8 % (36-47) 08/14/24 20: MCV 86.9 fl (85-98) 08/14/24 20: MCH 28.7 pg (27-33) 08/14/24 20: MCHC 33.1 g/dL (30-55) 08/14/24 20: RDW 12.7 % (12.1-15.1) 08/14/24 20: Plt Count 167 10^3/cmm (157-399) 08/14/24 20: MPV 10.5 fL (7.4-10.4) H 08/14/24 20: Neut % (Auto) 54.8 % 08/14/24 20: Lymph % (Auto) 35.1 % 08/14/24 20: [place] % (Auto) 7.1 % 08/14/24 20: Eos % (Auto) 1.7 % 08/14/24: Baso % (Auto) 0.5 % 08/14/24: Neut # (Auto) 3.46 10^3/uL (1.8-7.7) 08/14/24: Lymph # (Auto) 2.2 10^3/uL (0.8-4.8) 08/14/24: [place] # (Auto) 0.5 10^3/uL (0.2-0.9) 08/14/24: Eos # (Auto) 0.1 10^3/uL (0.0-0.8) 08/14/24: Baso # (Auto) 0.0 10^3/uL (0.0-0.1) 08/14/24: Nucleated RBC % (auto) 0 % 08/14/24 Nucleated RBCs # 0.0 /100WBC 08/14/24 20: Sodium 140 mmol/L (136-145) 08/14/24 20: Potassium 4.3 mmol/L (3.5-5.1) 08/14/24 20: Chloride 102 mmol/L (98-107) 08/14/24 20: Carbon Dioxide 26 mmol/L (22-29) 08/14/24 20: Anion Gap 16.3 (5-19) 08/14/24 20: BUN 11 mg/dL (6-20) 08/14/24: Creatinine 0.5 mg/dL (0.5-0.9) 08/14/24 20: GFR Calculation 126.3 mL/min (90-130) 08/14/24 20: Glucose 344 mg/dL (65-115) H 08/14/24 20: POC Glucose 265 mg/dL (70-110) H 08/14/24 22:28 Calculated Osmolality 303 mOsm/kg (285-295) H 08/14/24 20: Lactic Acid 1.1 mmol/L (0.5-2.2) 08/14/24 20: Calcium 9.7 mg/dL (8.5-10.5) 08/14/24 20: Total Bilirubin 0.2 mg/dL (0.15-1.2) 08/14/24 20: AST 26 U/L (0-32) 08/14/24 20: ALT 38 U/L (0-33) H 08/14/24 20: Alkaline Phosphatase 339 U/L (35-105) H 08/14/24 20: C-Reactive Protein 4.2 mg/L (0.0-4.9) 08/14/24 20: Total Protein 6.8 g/dL (6.6-8.7) 08/14/24 20: Albumin 3.6 g/dL (3.5-5.2) 08/14/24 20: Globulin 3.2 g/dL (1.3-4.6) 08/14/24 20: Urine Color Yellow (Yellow) 08/14/24 21: Urine Appearance Clear (CLEAR) 08/14/24 21: Urine pH 5.0 (5-7) 08/14/24 21: Ur Specific [place] 1.041 (1.005-1.030) H 08/14/24 21:04 Urine Protein 1+ (Negative) A 08/14/24 21: Urine Glucose (UA) 3+ (Normal) H 08/14/24 21:04 Urine Ketones 1+ (Negative) H 08/14/24 21: Urine Blood Negative (Negative) 08/14/24 21: Urine Nitrate Negative (Negative) 08/14/24 21: Urine Bilirubin Negative (Negative) 08/14/24 21: Urine Urobilinogen 0.2 mg/dL (Negative) 08/14/24 21:04 Ur Leukocyte Esterase Negative (Negative) 08/14/24 21:04 Urine RBC 0-4 /hpf (0-2) H 08/14/24 21:04 Urine WBC 10-15 /hpf (0-5) H 08/14/24 21:04 Ur Squamous Epith Cells 10-15 /hpf (0-5) H 08/14/24 21:04 Amorphous Sediment Not Reportable 08/14/24 21:04 Urine Bacteria Trace /hpf (NONE) 08/14/24 21:04 Urine Yeast 1+ /hpf H 08/14/24 21:04 Adenovirus (PCR) Not detected (NOT DETECT) 08/14/24 19:49 C. pneumoniae DNA (PCR) Not detected (NOT DETECT) 08/14/24 19:49 Coronavirus 229E (PCR) Not detected (NOT DETECT) 08/14/24 19:49 Human Metapneumovir PCR Not detected (NOT DETECT) 08/14/24 19:49 Influenza A (H1) PCR Not detected (NOT DETECT) 08/14/24 19:49 Influ A (H1/09) PCR Not detected (NOT DETECT) 08/14/24 19:49 Influenza A (H3) PCR Not detected (NOT DETECT) 08/14/24 19:49 Influenza Type A (PCR) Not detected (NOT DETECT) 08/14/24 19:49 Influenza Type B (PCR) Not detected (NOT DETECT) 08/14/24 19:49 M. pneumoniae (PCR) Not detected (NOT DETECT) 08/14/24 19:49 Parainfluenza 1 (PCR) Not detected (NOT DETECT) 08/14/24 19:49 Parainfluenza 2 (PCR) Not detected (NOT DETECT) 08/14/24 19:49 Parainfluenza 3 (PCR) Not detected (NOT DETECT) 08/14/24 19:49 Parainfluenza 4 (PCR) Not detected (NOT DETECT) 08/14/24 19:49 RSV Type A (PCR) Not detected (NOT DETECT) 08/14/24 19:49 RSV Type B (PCR) Not detected (NOT DETECT) 08/14/24 19:49 Entero/Rhino (PCR) Not detected (NOT DETECT) 08/14/24 19:49 SARS-CoV-2 (PCR) Not detected (NOT DETECT) 08/14/24 19:49 All radiology interpretation(s) finalized by discharge Discharge Plan Discharge Patient Disposition: Home Clinical Impression: Dehydration Condition: Stable Prescriptions: No Action amitriptyline 25 mg tablet 25 mg PO DAILY methocarbamol 750 mg tablet 750 mg PO BID Qty: 60 0RF tacrolimus 1 mg capsule See Rx Instructions .ROUTE .COMPLEX Rx Instructions: 2mg po qam and 1mg po qpm insulin aspart U-100 [Novolog FlexPen U-100 Insulin] 100 unit/mL (3 mL) Insulin Pen See Rx Instructions .ROUTE .COMPLEX Rx Instructions: sliding scale with meals Lantus Solostar U-100 Insulin 100 unit/mL (3 mL) insulin pen 30 unit SUBCUT BEDTIME methocarbamol 750 mg tablet 750 mg PO Q8H PRN (Reason: Muscle spasms and pain) Qty: 20 0RF methocarbamol 500 mg tablet 1,000 mg PO Q8H Qty: 30 0RF Medrol (Ryan) 4 mg tablets,dose pack See Rx Instructions .ROUTE .COMPLEX Qty: 21 0RF Rx Instructions: orally per package directions Novolog FlexPen U-100 Insulin 100 unit/mL (3 mL) insulin pen See Rx Instructions .ROUTE .COMPLEX Qty: 15 2RF Rx Instructions: Sliding Scale with meals. 5U Glucose <150 7U Glucose 150-250 9U Glucose >250 promethazine 25 mg tablet 25 mg PO TID PRN (Reason: nausea and vomiting) Qty: 14 0RF Discharge Orders: Discharge ED (Routine); Ordered 08/14/24 Ordered By: Azeem Dela Cruz Referrals: Celi Horne PA [Primary Care Provider] - Patient Instructions: Dehydration (ED) Activity Restrictions/Additional Instructions: Make sure to drink plenty of fluids. Monitor your blood sugars closely at home and take your medications as prescribed. Tylenol and ibuprofen for body aches or fevers. Please follow-up with your primary care provider later this week as discussed. And return with any new or worsening of your symptoms. Coding Level of Care Code ED Shucker for Bess Chen
[2024-08-14 21:40] LABS: Specific Gravity, Urine 1.041 (1.005-1.030)
[2024-08-14 21:41] LABS: RBC Urine 0-4 /hpf (0-2); UA Manual Slide Review YES; UA Slide Review UA Slide Review Perf
[2024-08-14 21:42] LABS: Add Urine Culture? No; Bacteria Urine TRACE /hpf
[2024-08-14] MEDS: sodium chloride 0.9% 1,000 ML 999 ML IV (21:44)
[2024-08-14] MEDS: ondansetron 2 mg/ML SDV 2 mL 4 MG IVP (21:45)
[2024-08-14 21:46] LABS: Adenovirus Not Detected (NOT DETECT); Chlamydia Pneumoniae Not Detected (NOT DETECT); Coronavirus 229E,HKU1,NL63,OC4 Not Detected (NOT DETECT); Human Metapneumovirus Not Detected (NOT DETECT); Human Rhinovirus/Enterovirus Not Detected (NOT DETECT); Influenza A Not Detected (NOT DETECT); Influenza A H1 Not Detected (NOT DETECT); Influenza A H1-2009 Not Detected (NOT DETECT); Influenza A H3 Not Detected (NOT DETECT); Influenza B Not Detected (NOT DETECT); Mycoplasma Pneumoniae Not Detected (NOT DETECT); Parainfluenza Virus Type 1 Not Detected (NOT DETECT); Parainfluenza Virus Type 2 Not Detected (NOT DETECT); Parainfluenza Virus Type 3 Not Detected (NOT DETECT); Parainfluenza Virus Type 4 Not Detected (NOT DETECT); Respiratory Syncytial Virus A Not Detected (NOT DETECT); Respiratory Syncytial Virus B Not Detected (NOT DETECT); SARS-COV-2 Not Detected (NOT DETECT)
[2024-08-14] MEDS: ketorolac 60 mg/2 mL INJ 30 MG IVP (21:46)
[2024-08-14 21:48] VITALS: BP 145/83; PULSE 81; RESP 16; O2SAT 98
[2024-08-14 22:31] LABS: Glucose Point of Care 265 mg/dL (70-110)
[2024-08-14] MEDS: insulin regular-human 100 units/1 mL 10 UNIT IVP (22:52)
[2024-08-14 22:55] VITALS: BP 151/90; PULSE 84; RESP 16; O2SAT 99
[2024-08-15] LABS: Glucose Point of Care 114 mg/dL (70-110)
[2024-08-15 00:06] VITALS: BP 133/90; PULSE 87; O2SAT 99
== END 2024-08-15 00:07 | disposition home or self-care (01) ==
PROVIDERS: Emergency Medicine; Emergency Provider Physician Assistant; PCP Physician Assistant
DX: E86.0 Dehydration (principal); Z11.52 Encounter for screening for COVID-19; Z79.4 Long term (current) use of insulin; E11.9 Type 2 diabetes mellitus without complications
CPT/HCPCS: 36415; 36416; 71045; 80053; 81001; 82962; 83605; 85025; 86140; 87040; 87486; 87581; 87633; 96374; 96375; 99285; J1815; J1885; J2405; J7030

== ENCOUNTER 2025-02-04 12:22 | Emergency (ER) | payer MEDICAID, SELFPAY ==
[2025-02-04 12:23] VITALS: BP 144/78; PULSE 101; TEMP 36.7; O2SAT 98
--- OUTSIDE RECORDS SUMMARY | 2025-02-04 12:27 | XMS_ITS | Encounter Summary ---
Author Organization [facility] Address [address] [place] [address] Care Team Providers Care Product Management Intern Name Role Phone Unavailable Primary Care Provider Unavailabl e Encounter Details Date Type Department Care Team (Latest Contact Info) Description 07/10/1998 Outpatient Historical [facility] [address] [place] [phone] Jaquan Reagan MD [address] [place] [phone] Viral warts, unspecified (Primary Dx) Social History Tobacco Use Types Packs/Day Years Used Date Smoking Tobacco: Never Assessed Comments Unknown Sex and Gender Information Value Date Recorded Sex Assigned at Not on file 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
--- OUTSIDE RECORDS SUMMARY | 2025-02-04 12:27 | XMS_ITS | Clinical Summary ---
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 Gender Identity Not on file Sexual Orientation Not on file Plan of Treatment Health Maintenance Due Date Last Done Comments DTAP/TDAP/TD VACCINES (1 - Tdap) 11/13/1983 HPV/Cotest (21-29) 1985 CERVICAL CANCER SCREENING 1994 HPV/Cotest (30-65) 1994 PAP SMEAR 1994 BREAST CANCER SCREENING 2004 COLORECTAL SCREENING 2009 Colorectal Cancer Screening 2009 FIT-DNA Q 3 years 2009 FIT/FOBT Q 1 year 2009 Flex Sig/CT Colonography Q 5 years 2009 ZOSTER VACCINE (1 of 2) 2014 INFLUENZA VACCINE (#1) 2024 RSV VACCINE (60+ or ) (1 - 1-dose 75+ series) 11/13/2039 HEPATITIS B VACCINES Aged Out No long er eligible based on patient's age to complete this topic
--- OUTSIDE RECORDS SUMMARY | 2025-02-04 12:27 | XMS_ITS | Encounter Summary ---
Author Organization [facility] Address [address] [place] [address] Care Team Providers Care Assessment Clinician Name Role Phone Unavailable Primary Care Provider Unavailabl e Encounter Details Date Type Department Care Team (Latest Contact Info) Description 12/04/1998 Outpatient Historical [facility] Dermatology- [facility] [address] [place] [phone] Jaquan Reagan MD [address] [place] [phone] Other atopic dermatitis and related conditions (Primary Dx); Viral warts, unspecified Social History Tobacco Use Types Packs/Day Years Used Date Smoking Tobacco: Never Assessed Comments Unknown Sex and Gender Information Value Date Recorded Sex Assigned at Not on file 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
--- OUTSIDE RECORDS SUMMARY | 2025-02-04 12:27 | XMS_ITS | Clinical Summary ---
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
--- OUTSIDE RECORDS SUMMARY | 2025-02-04 12:27 | XMS_ITS | Encounter Summary ---
Author Organization [facility] Address [address] [place] [address] Care Team Providers Care Researcher Name Role Phone Unavailable Primary Care Provider Unavailabl e Encounter Details Date Type Department Care Team (Latest Contact Info) Description 10/02/1998 Outpatient Historical [facility] [address] [place] [phone] Jaquan Reagan MD [address] [place] [phone] Viral warts, unspecified (Primary Dx) Social History Tobacco Use Types Packs/Day Years Used Date Smoking Tobacco: Never Assessed Comments Unknown Sex and Gender Information Value Date Recorded Sex Assigned at Not on file 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
--- OUTSIDE RECORDS SUMMARY | 2025-02-04 12:27 | XMS_ITS | Patient Health Record ---
Author Organization [facility] Address [address] [place], [place] [id number] Care Team Providers Care Supervisor Metal Furniture Assembly Name Role Phone Celi Horne PA-C Primary Care Provider Cruzito Reynolds MD, August Unavailable [phone] Jayla Escalona Unavailable [phone] Allergies Allergen (clinical drug ingredient) Drug/Non Drug Allergy documented on EMR Reaction Allergy Type Onset Date Status diazepam Valium weird feeling Drug Allergy Act adonay nubain out of body feeling Drug Allergy Active Results Component Value Reference Range Notes Digital Reef Results Reviewed date:05/24/2024 05:17:21 PM Interpretation: Performing Lab:[id number] [facility], [address] [place] [id number] Jennifer Castrejon MD Notes/Report: ab Director: Jennifer Castrejon MD, CLIA ID# [id number] [facility], [address], [facility] [address] [address], , L OPIATES SCREEN negative 40 ng/mL OXYCODONE SCREEN negative 40 ng/mL Oxymorphone negative 1 ng/mL Buprenorphine Quantification negative 1 ng/mL Norbuprenorphine Quantification negative 2 ng/mL Fentanyl Quantification negative 0.2 ng/mL Norfentanyl Quantification negative 1 ng/mL METHADONE SCREEN negative 50 ng/mL Tapentadol Quantification negative 5 ng/mL Tramadol Quantification negative 5 ng/mL K-Gwzxlxupp-Mfjriily Quantification negative 5 ng/ mL BENZODIAZEPINES SCREEN negative 20 ng/mL AMPHETAMINES SCREEN negative 50 ng/mL Carisoprodol Quantification negative 5 ng/mL Meprobamate Quantification negative 5 ng/mL Gabapentin Quantification negative 10 ng/mL Naltrexone Quantification negative 1 ng/mL Naltrexol (Naltrexone metabolite) Quantification negat adonay 1 ng/mL Pregabalin Quantification negative 5 ng/mL METHAMPHETAMINES SCREEN negative 50 ng/mL COCAINE METABOLITES SCREEN negative 20 ng/mL CANNABINOIDS SCREEN negative 8 ng/mL MDMA negative 5 ng/mL 6-JASMIN (Heroin metabolite) Quantification negative 1 ng/mL PHENCYCLIDINE SCREEN negative 10 ng/mL Embedded PDF Reviewed date:05/24/2024 05:17:34 PM Interpretation: Performing Lab: Notes/Report: [facility], [address] [facility] [address], [place] [address], , L ab Director: Jennifer Castrejon MD, CLIA ID# [id number] [facility] Toxicology Scree n Reviewed date:05/24/2024 05:17:53 PM Interpretation:Consistent Performing Lab: Notes/Report: Consistent Saliva Swab Toxicology Scree n Reviewed date:05/24/2024 05:17:53 PM Interpretation:Consistent Performing Lab: Notes/Report: Consistent Reason For Referral Reason Chronic low back stephane n Diagnosis 1 Low back pain, unspe cified (M54.50) Referring Provider First Name Celi Referring Provider Last Name Ozzie Referred Organization [facility] Referred Provider August Reynolds Referred Address [address] [place] [id number], Referred Provider Specialty Pain Managem ent General Notes Romana Garcia 03/2024 09:42:04 AM >Sent for insurance verification., Gabrielle Rodgers 02/14/2024 01:30:51 PM > active. no copay.Jose Danielle 02/16/2024 03:12:50 PM >Wireless customer is not available. Mailed letter.Jose Danielle 03/06/2024 10:42:53 AM > Patient left a voicemail but when I try to call her back it says wireless customer is not available. Referral Priority Routine Medications Medication SIG (Take, Route, Frequency, Duration) Notes Start Date End Date Status promethazine 25 mg 1 tab orally Q6H prn nausea for 28 days Active tacrolimus 1 mg 1 cap in AM, 2 caps in PM orally Active acetaminophen-oxycodone 325 mg-5 mg 1-2 tabs orally Q4-6H prn pain (max 5/day; hold within 4H of planned sleep) for 28 days ICD-10: G89.29 12/20/2024 Active acetaminophen-oxycodone 325 mg-5 mg 1-2 tabs orally Q4-6H prn pain (max 5/day; hold within 4H of planned sleep) for 28 days Do not fill prior to 01/17/25. ICD-10: G89.29 12/20/2024 Active NovoLOG FlexPen 100 units/mL as directed subcutaneously 3 times a day (before meals) Active acetaminophen-oxycodone 325 mg-5 mg 1-2 tabs orally Q4-6H prn pain (max 5/day; hold within 4H of planned sleep) for 28 days Do not fill prior to 02/14/25. ICD-10: G89.29 12/20/2024 Active Narcan 4 mg/0.1 mL 1 spray(s) intranasally once 06/28/2024 Active mycophenolate mofetil 200 mg/mL 2 mLs orally BID Active Lantus 100 units/mL 0 subcutaneously Active ibuprofen 200 mg 2 tab(s) orally 1-2 X PRN Active cyclobenzaprine 5 mg 1 tab(s) orally 3 times a day, as needed Active Social History Tobacco Use: Social History Observation Description Date Details (start date - stop date) Never Smoker NA - NA Tobacco use: Question Answer Notes : nonsmoker AUDIT-C (Standard) Question Answer Notes Did you have a drink containing alcohol in the p ast year? No Points 0 Interpretation Negative Problems Problem Type SNOMED Code ICD Code Onset Dates Problem Status W/U Status Risk Notes Problem Solitary sacroiliitis (131813623) Sacroiliitis, not elsewhere classified (M46.1) Active confirmed Problem Low back pain (231191084) Low back pain (M54.5) Active confirmed Problem Lumbosacral spondylosis without myelopathy (64176102) Spondylosis without myelopathy or radiculopathy, lumbar region (M47.816) Active confirmed Problem High risk drug monitoring status (391631637) FCI (current) use of opiate analgesic (Z79.891) Active confirmed Problem Hypersomnia (26956271) Hypersomnia, unspecified (G47.10) Active confirmed Problem Sleep disorder (06982071) Other sleep disorders (G47.8) Active confirmed Problem Chronic pain (20432886) Other chronic pain (G89.29) Active confirmed Problem Essential hypertension (91070943) Essential (primary) hypertension (I10) Active confirmed Problem Radiculopathy due to lumbar intervertebral disc disorder (421233057860290) Intervertebral disc disorders with radiculopathy, lumbar region (M51.16) Active confirmed Problem Long-term current use of drug therapy (925468960) Other intermediate (current) drug therapy (Z79.899) Active confirmed Problem Low back pain (215431606) Low back pain, unspecified (M54.50) Active confirmed Problem Vertebrogenic low back pain (7222308379068738 01) Vertebrogenic low back pain (M54.51) Active confirmed Vital Signs Temperature 97.3 degrees Fahrenheit 12/20/2024 Blood pressure diastolic 81 mm Hg 12/20/2024 Oximetry 100 % 12/20/2024 Height 63 in 12/20/2024 Blood pressure systolic 163 mm Hg 12/20/2024 Weight 120 lbs 12/20/2024 BMI 21.25 kg/m2 12/20/2024 Encounters Encounter Location Date Provider Diagnosis [facility] [address] [place], [place] [id number] 05/22/2024 Jayla Ozzie Vertebrogenic low ba ck pain M54.51 ; Spondylosis without myelopathy or radiculopathy, lumbar region M47.816 ; Sacroiliitis, not elsewhere classified M46.1 ; Hypersomnia, unspecified G47.10 and Other ocean transportation intermediary (current) drug therapy Z79.899 [facility] [address] [place], [place] [phone] 06/06/2024 August Reynolds Vertebrogenic low ba ck pain M54.51 ; Hypersomnia, unspecified G47.10 and Other intermediate (current) drug therapy Z79.899 [facility] [address] [place], [place] [id number] 06/28/2024 August Reynolds Vertebrogenic low ba ck pain M54.51 ; Other chronic pain G89.29 ; Hypersomnia, unspecified G47.10 and FCI (current) use of opiate analgesic Z79.891 [facility] [address] [place] [id number] 08/17/2024 August Reynolds Vertebrogenic low ba ck pain M54.51 ; Other chronic pain G89.29 and Hypersomnia, unspecified G47.10 [facility] [address] [place] [id number] 10/19/2024 August Reynolds Vertebrogenic low ba ck pain M54.51 ; Other chronic pain G89.29 ; Essential (primary) hypertension I10 and Hypersomnia, unspecified G47.10 [facility] [address] [place] [id number] 12/20/2024 August Reynolds Vertebrogenic low ba ck pain M54.51 ; Other chronic pain G89.29 ; Essential (primary) hypertension I10 and Hypersomnia, unspecified G47.[address] [id number] 08/24/2024 August Reynolds Assessments Encounter Date Diagnosis (ICD Code) Assessment Notes Treatment Notes Treatment Clinical Notes Section Notes 12/20/2024 Vertebrogenic low back pain (ICD-10 - M54.51) Chronic axial lumbosacral spine pain. 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 Plan to continue oral opioid medication management. 10/19/2024 Vertebrogenic low back pain (ICD-10 - M54.51) Chronic axial lumbosacral spine pain. At prior office visit, patient reported she was not interested in PT or injection therapy. She stated that she cannot take NSAIAs due to her history of renal transplants. 06/28/2024 Other chronic pain (ICD-10 - G89.29) Patient reports that taking her pain medication allows her to care for her home. Patient desires one more tab per day to meet her expectations for pain relief. Plan to continue oral opioid medication management with a small upward titration in doses per day. 06/28/2024 Vertebrogenic low back pain (ICD-10 - M54.51) Chronic axial lumbosacral spine pain. At prior office visit, patient reported she was not interested in PT or injection therapy. She stated that she cannot take NSAIAs due to her history of renal transplants. 06/06/2024 Hypersomnia, unspecified (ICD-10 - G47.10) Consider a sleep study. Have discussed getting a sleep study. Patient states that she really does not get much sleep due to her pain: she has gone several days before with no sleep. Plan to restrict opioid usage in relation to sleep for safety concerns: patient has verbalized understanding to hold short-acting opioids within four hours of planned sleep. Patient has been counseled on the risks of sleep apnea (if present), with or without opioid and / or other sedative usage, and the patient verbalized understanding and acceptance of the increased risk (sleep apnea, respiratory depression, ) with opioid and / or sedative substance usage. Patient has been counseled that synergistic risk occurs with concomitant opioid and sedative usage. Patient has been counseled to hold opioid and / or sedative substances prior to planned sleep or dangerous activities and patient verbalized understanding that noncompliance would be at patient's increased risk. 06/06/2024 Vertebrogenic low back pain (ICD-10 - M54.51) Chronic axial lumbosacral spine pain. Patient states she is not interested in any PT or injection therapy. She stated that she cannot take NSAIAs due to her history of renal transplants. Patient desires to resume opioid therapy which has helped in the past. Plan to resume oxycodone, which has worked the best in the past. Risks discussed in detail with patient. 05/22/2024 Spondylosis without myelopathy or radiculopathy, lumbar region (ICD-10 - M47.816) Consider interventional treatment pending evaluation by Dr. Reynolds. 05/22/2024 Vertebrogenic low back pain (ICD-10 - M54.51) Consider treatment options pending evaluation by Dr. Reynolds. 08/17/2024 Other chronic pain (ICD-10 - G89.29) Patient reports that most days she could use an extra pain tablet for better symptom control. Plan to continue oral opioid medication management with a quantity titration. 08/17/2024 Vertebrogenic low back pain (ICD-10 - M54.51) Chronic axial lumbosacral spine pain. At prior office visit, patient reported she was not interested in PT or injection therapy. She stated that she cannot take NSAIAs due to her history of renal transplants. 08/17/2024 Hypersomnia, unspecified (ICD-10 - G47.10) Plan to restrict opioid usage in relation to sleep for safety concerns: patient has verbalized understanding to hold short-acting opioids within four hours of planned sleep. 06/28/2024 Hypersomnia, unspecified (ICD-10 - G47.10) Plan to restrict opioid usage in relation to sleep for safety concerns: patient has verbalized understanding to hold short-acting opioids within four hours of planned sleep. 05/22/2024 Sacroiliitis, not elsewhere classified (ICD-10 - M46.1) Consider interventional treatment pending evaluation by Dr. Reynolds. 06/06/2024 Other ocean transportation intermediary (current) drug therapy (ICD-10 - Z79.899) Patient has received the Opioid Analgesic [facility] Patient Counseling Guide. Patient has had opportunity to read the Guide and ask questions pertaining to the Guide. Patient has been advised on 06/06/24 that any suspected patient misuse, abuse, or diversion of controlled substances (i.e. opioids/narcotics/ painkillers) WILL result in dissolution of treatment from this clinic. Patients adhering to the concepts contained within the patient's Treatment Agreement will be protected from such termination of care. Patient was given a copy of the Treatment Agreement, signed by patient on 05/16/24. Patient signed an opioid consent form on 06/06/24. 2022 opioid (OUD) risk tool score = 1. This places the patient in the low risk category. History of marijuana use reported by patient. 10/19/2024 Essential (primary) hypertension (ICD-10 - I10) Education sheet given at today's visit; patient to address with PCP. 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 Plan to continue oral opioid medication at today's visit. 12/20/2024 Essential (primary) hypertension (ICD-10 - I10) Education sheet given at today's visit; patient to address with PCP. 10/19/2024 Hypersomnia, unspecified (ICD-10 - G47.10) Plan to continue to restrict opioid usage in relation to sleep for safety concerns. Patient has verbalized understanding to hold short-acting opioids within four hours of planned sleep. 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 This places the [facility] in the [facility] low risk category for total daily opioid usage. Patient has accepted a prescription for Narcan nasal spray as required by her insurance. 2022 opioid (OUD) risk tool score = 1. This places the patient in the low risk category. History of marijuana use reported by patient. 05/22/2024 Hypersomnia, unspecified (ICD-10 - G47.10) Consider a sleep study pending evaluation by Dr. Reynolds. 05/22/2024 Other intermediate (current) drug therapy (ICD-10 - Z79.899) Patient was given a copy of the Treatment Agreement, signed by patient on 05/16/24. 2022 opioid (OUD) risk tool score = 1. This places the patient in the low risk category. History of marijuana use reported by patient. Plan oral fluid toxicology screen today in anticipation of possibly starting opioid therapy at future visit as well as to assess for any prescribed, unprescribed, and / or illicit controlled substance(s). 12/20/2024 Hypersomnia, unspecified (ICD-10 - G47.10) Plan to continue to restrict opioid usage in relation to sleep for safety concerns. 08/17/2024 Other The service was provided by AMADOU Peña, as part of the ongoing care plan established by August Reynolds MD, who was present in the office for direct supervision during the encounter. 06/28/2024 Other The service was provided by AMADOU Peña, as part of the ongoing care plan established by August Reynolds MD, who was present in the office for direct supervision during the encounter. 06/06/2024 Other 10/19/2024 Other The service was provided by AMADOU Peña, as part of the ongoing care plan established by August Reynolds MD, who was present in the office for direct supervision during the encounter. 12/20/2024 Other The service was provided by AMADOU Peña, as part of the ongoing care plan established by August Reynolds MD, who was present in the office for direct supervision during the encounter. Patient was provided with a letter at today's visit informing patient that this clinic is closing due to Dr. Reynolds's longterm; see scanned document. Terminal prescriptions were given to the patient along with tapering instructions. 05/22/2024 Other Case reviewed, treatment plan approved, and visit note edited by Dr. Reynolds. Plan Of Treatment No Information Insurance Providers Payer Name Payer Address Payer Phone Subscriber Number Group Number Insured Name Patient Relationship to Insured Coverage Start Date Coverage End Date [place] [employer] [address] [place] [address] [phone] [id number] Franklin Farah Self - patient is the insured Medical (General) History Medical History History ICD Code Chronic pain Low back pain Lumbar spondylosis, disc dis ease, and multilevel spinal stenosis as noted upon review of prior lumbar imaging study reports Sacroiliitis, degenerative c hanges noted upon review of prior plain films report Hip pain Osteoarthritis of bilateral hips, mild, as per prior plain films report Mid back pain Thoracic spondylosis as per prior thorac ic plain films report Neck pain Cervical spondylosis and dis c disease noted upon review of prior cervical CT report Spinal stenosis, C7-T1 as per prior lumb ar imaging study report Osteropenia as noted upon review of a pr ior plain films report Acquired trigger finger Diabetes mellitus type 2 Kidney transplant x 2 Edema of right lower extremity Anxiety Sleep disorder to include hy persomnia, restless legs and morning headaches as per patient report (have discussed getting a sleep study and patient declined / deferred) Surgical History Surgery Date(Month/Year) x 2, performed at [facility] in [place], [place] Knee surgeries, bilateral, performed at [facility] in [place], [place] Kidney transplants x 2, performed in [place], [place], 2004, 2009 Placement of fistula, performed at [facility] Hospitalization History Reason Date(Month/Year)
--- OUTSIDE RECORDS SUMMARY | 2025-02-04 12:27 | XMS_ITS | Data Portability ---
Author Organization RAYMUNDO Ervin [facility] Reid Bedolla [facility] Address [address] [place] [phone] Assessment No assessment recorded. Plan of Treatment Reminders Order Date Submit Date Provider Last Modified By Organization Details Last Modified Time Details Appointments None recorded. Lab HbA1c (hemoglobin A1c), blood 2023 024 [facility] ([facility]), [address] [place], [address], 4 11:53:19 CMP, serum or plasma 2023 024 [facility], [address] [facility], [address], [place], [address], 4 12:20:47 CBC 2023 024 [facility], [address] [facility], [facility] [address], [place], [address], 4 11:51:51 lipid panel, blood 2023 024 [facility], [address], [address], [place], [address], 4 12:20:49 microalbumi n, urine 2023 024 [email or web address] [facility], [address] [facility] [address], [address], [place], [address], 4 07:39:30 Referral pain management referral 2023 024 [email or web address] August Reynolds MD, [address] , [place], [address], 4 11:28:03 eye care referral 2023 asurface Ildefonso Vail MD, [address] [place], [address], 4 12:35:56 Procedures [facility] [address] [facility], [address], [place], [address], 4 09:40:10 Surgeries None recorded. Imaging MRI, lumbar spine, w/o contrast 2023 024 [email or web address] 8 [facility], [address] [place], [address], 4 09:50:30 US, duplex, venous, extremity, complete - [address] [facility], [address] [place], [address], 4 10:35:33 Medication Orders cyclobenzap rine 5 mg tablet 2023 024 [facility] #84209, [address], [place], [place], [id number], 4 12:04:56 promethazin e 25 mg tablet 2023 024 [facility] #71407, [address], [place], [place], [id number], 4 12:04:23 trazodone 50 mg tablet 2023 024 [facility] #45463, [address], [place], [place], [id number], 4 12:02:51 promethazin e 25 mg tablet 2023 024 [facility] #18076, [address], [place], [place], [id number], 4 11:04:01 amoxicillin 500 mg tablet 2023 024 [facility] #28063, [address], [place], [place], [id number], 4 11:03:11 Novolog FlexPen U-100 Insulin aspart 100 unit/mL (3 mL) subcutaneou s [email or web address] writewith [facility] #[id number], [address], [place], [place], [id number], 4 13:00:02 Patient TargetsNo targets recorded. Patient InstructionsNo instructions recorded. Reason for Referral Eye Care Referral for Diabet es mellitus Referring Physician: Celi Horne [facility], Encounter Date: 02/08/2024 Pain Management Referral for Chronic low back pain Referring Physician: Celi Horne [facility], Encounter Date: 02/08/2024 Results Created Date Observation Date Name Description Value Unit Range Abnormal Flag Note LastModifiedBy Organization Detail LastModifiedTime 02/08/2002/08/2024 CBC WBC 9.3 x10 4.0-10 .5 Not Available [facility] [address] [facility] [facility], [place], [address], 02/08/2024 11:51:51 02/08/20 24 02/08/2024 CBC RBC 4.88 x10 3.50-5 .50 Not Available [facility] [address] [facility] [facility] [address], [place], [address], 02/08/2024 11:51:51 02/08/20 24 02/08/2024 CBC HGB 14.2 g/dL 12.0-1 6.0 Not Available [facility] [address] [facility], [place], [address], 02/08/2024 11:51:51 02/08/20 24 02/08/2024 CBC HCT 42.8 % 37.0-4 7.0 Not Available [facility] [address] [facility] 1, [place], [address], 02/08/2024 11:51:51 02/08/20 24 02/08/2024 CBC MCV 87.8 fL 80.0-9 9.9 Not Available [facility] [address] [facility] [address], [place], [address], 02/08/2024 11:51:51 02/08/20 24 02/08/2024 CBC MCH 29.0 pg 27.0-3 2.0 Not Available [facility] [address] [facility] [facility] [address], [place], [address], 02/08/2024 11:51:51 02/08/20 24 02/08/2024 CBC MCHC 33.1 g/dL 32.0-3 6.0 Not Available [facility] [address] [facility] [facility] 1, [place], [address], 02/08/2024 11:51:51 02/08/20 24 02/08/2024 CBC RDW 13.9 % 11.5-1 4.5 Not Available [facility] [address] [facility] [address], [place], [address], 02/08/2024 11:51:51 02/08/20 24 02/08/2024 CBC plt 230.1 x10 140.0- 451.0 Not Available [facility] [address] [facility] [address] [address], [place], [address], 02/08/2024 11:51:51 02/08/20 24 02/08/2024 CBC lymphocytes % 16.1 % 20.0-5 0.0 low Not Available [facility] [address] [facility], [place], [address], 02/08/2024 11:51:51 02/08/20 24 02/08/2024 CBC granulcytes % 75.8 % 30.0-7 0.0 high Not Available [facility] [address] [facility], [place], [address], 02/08/2024 11:51:51 02/08/20 24 02/08/2024 CBC monocytes % 6.0 % 2.0-16 .0 Not Available [facility] [address] [facility], [place], [address], 02/08/2024 11:51:51 02/08/20 24 02/08/2024 CBC granulcytes# 7.0 x10 Not Julieth ilable [facility] [address] [facility], [place], [address], 02/08/2024 11:51:51 02/08/20 24 02/08/2024 CBC lymphocytes # 1.5 x10 Not Available [facility] [address] [facility], [place], [address], 02/08/2024 11:51:51 02/08/20 24 02/08/2024 CBC monocytes # 0.6 x10 Not Avai lable [facility] [address] [facility], [place], [address], 02/08/2024 11:51:51 02/08/20 24 02/08/2024 CMP (FEMA LE) glucose 272.0 mg/dL 60.0-9 9.0 high Not Available [facility] [address] [facility] [address], [place], [address], 02/08/2024 12:20:47 02/08/20 24 02/08/2024 CMP (FEMA LE) BUN (blood urea nitrogen) 27.0 mg/dL 10.0-2 6.0 high Not Available [facility] [address] [facility], [place], [address], 02/08/2024 12:20:47 02/08/20 24 02/08/2024 CMP (FEMA LE) creatinine (serum) 0.6 mg/dL 0.4-1. 5 Not Available [facility] [address] [facility], [place], [address], 02/08/2024 12:20:47 02/08/20 24 02/08/2024 CMP (FEMA LE) BUN/creatini ne ratio 48.21 ratio Not Available [facility] [address] [facility] [address] [address], [place], [address], 02/08/2024 12:20:47 02/08/20 24 02/08/2024 CMP (FEMA LE) eGFR calculated 117.8 Not Available [facility] [address] [facility] [address] [address], [place], [address], 02/08/2024 12:20:47 02/08/20 24 02/08/2024 CMP (FEMA LE) total protein 7.7 g/dL 6.0-8. 5 Not Available [facility] [address] [facility], [place], [address], 02/08/2024 12:20:47 02/08/20 24 02/08/2024 CMP (FEMA LE) total bilirubin 0.2 mg/dL 0.2-1. 3 Not Available [facility] [address] [facility] [address] [address], [place], [address], 02/08/2024 12:20:47 02/08/20 24 02/08/2024 CMP (FEMA LE) albumin 4.0 g/dL 3.5-5. 5 Not Available [facility] [address] [facility], [place], [address], 02/08/2024 12:20:47 02/08/20 24 02/08/2024 CMP (FEMA LE) globulin 3.7 calc Not Available [facility] [address] [facility], [place], [address], 02/08/2024 12:20:47 02/08/20 24 02/08/2024 CMP (FEMA LE) AST (SGOT) 72.0 U/L 0.0-46 .0 high Not Available [facility] [address] [facility], [place], [address], 02/08/2024 12:20:47 02/08/20 24 02/08/2024 CMP (FEMA LE) altv (SGPT) 107.0 U/L 13.0-6 9.0 abnormal Not Available [facility] [address] [facility], [place], [address], 02/08/2024 12:20:47 02/08/20 24 02/08/2024 CMP (FEMA LE) A/G ratio 1.1 ratio Not Available [facility] [address] [facility] [address], [place], [address], 02/08/2024 12:20:47 02/08/20 24 02/08/2024 CMP (FEMA LE) ALP phos 379.0 U/L 30.0-1 40.0 abnormal Not Available [facility] [address] [facility], [place], [address], 02/08/2024 12:20:47 02/08/20 24 02/08/2024 CMP (FEMA LE) calcium 10.0 mg/dL 8.4-10 .5 Not Available [facility] [address] [facility], [place], [address], 02/08/2024 12:20:47 02/08/20 24 02/08/2024 CMP (FEMA LE) sodium 136.0 mmol/ L 136.0- 145.0 Not Available [facility] [address] [facility] 1, [place], [address], 02/08/2024 12:20:47 02/08/20 24 02/08/2024 CMP (FEMA LE) potassium 5.1 mmol/ L 3.5-5. 1 Not Available [facility] [address] [facility] 1, [place], [address], 02/08/2024 12:20:47 02/08/20 24 02/08/2024 CMP (FEMA LE) chloride 102.0 mmol/ L 98.0-1 10.0 normal Not Available [facility] [address] [facility] 1, [place], [address], 02/08/2024 12:20:47 02/08/20 24 02/08/2024 CMP (FEMA LE) C02 31.0 mmol/ L 22.0-3 1.0 Not Available [facility] [address] [facility] 1, [place], [address], 02/08/2024 12:20:47 02/08/20 24 02/08/2024 CMP (FEMA LE) anion gap 3.0 calc Not Available [facility] [address] [facility] 1, [place], [address], 02/08/2024 12:20:47 02/08/20 24 02/08/2024 CMP (FEMA LE) osmolality 294.6 calc Not Available [facility] [address] [facility] [address], [place], [address], 02/08/2024 12:20:47 02/08/20 24 02/08/2024 LIPID PROFI LE (FEMA LE) cholesterol 183.0 mg/dL 0.0-20 0.0 Not Available [facility] [address] [facility] 1, [place], [address], 02/08/2024 12:20:49 02/08/20 24 02/08/2024 LIPID PROFI LE (FEMA LE) trig 125.0 mg/dL 0.0-15 0.0 Not Available [facility] [address] [facility] 1, [place], [address], 02/08/2024 12:20:49 02/08/20 24 02/08/2024 LIPID PROFI LE (FEMA LE) HDL - direct 79.0 mg/dL >40.0 Not Available [facility] [address] [facility] 1, [place], [address], 02/08/2024 12:20:49 02/08/20 24 02/08/2024 LIPID PROFI LE (FEMA LE) VLDL - direct 25.0 mg/dL Not Available [facility] [address] [facility] 1, [place], [address], 02/08/2024 12:20:49 02/08/20 24 02/08/2024 LIPID PROFI LE (FEMA LE) LDL - direct 79.0 mg/dL 0.0-13 0.0 Not Available [facility] [address] [facility] 1, [place], [address], 02/08/2024 12:20:49 02/08/20 24 02/09/2024 ALBUM IN, RANDO M URINE W/CRE ATINI NE creatinine, random urine 65 mg/dL 20-275 normal Not Available [facility] [address], [place], [address], 02/09/2024 14:19:02 02/08/20 24 02/09/2024 ALBUM IN, RANDO M URINE W/CRE ATINI NE albumin, urine 19.0 mg/dL see note: normal Refer ence Range : Refer ence Range Not estab lishe d Not Available [facility] [address] , [place], [address], 02/09/2024 14:19:02 02/08/20 24 02/09/2024 ALBUM IN, RANDO M URINE W/CRE ATINI NE albumin/crea tinine ratio, random urine 292 mg/g_ creat <30 high The ADA defin es abnor malit ies in album in excre tion as follo ws: Album inuri a Categ ory Resul t (mg/g creat inine ) Tete l to Mildl y incre ased <30 Moder ately incre ased 30-29 9 Sever alphonso incre ased > OR = 300 The ADA recom mends that at least two of three speci mens colle cted withi n a 3-6 month perio d be abnor mal befor e consi jesse g a patie nt to be withi n a diagn ostic categ ory. Not Available [facility] [address] [place], [address], 02/09/2024 14:19:02 02/08/20 24 02/08/2024 HbA1c (hemo globi n A1c), blood HbA1c 13.1 Not Available [facility] [address] [place], [address], 02/08/2024 11:00:26 03/07/20 24 03/06/2024 US, lora garza, toi s, blake oliveira, compl ete No observ ation record ed. [email or web address] [facility] [address] [place], [address], 03/07/2024 14:25:27 03/07/20 24 03/06/2024 US, liver No observ ation record ed. [email or web address] [facility] [address] [place], [address], 03/09/2024 12:40:16 04/25/20 24 04/25/2024 MRI, lumba r spine , w/o contr ast No observ ation record ed. [email or web address] [facility] [address] [place], [address], 04/27/2024 13:42:58 Result Notes None recorded. Problems Name Problem SNOMED Code Status Onset Date Resolution Date Notes Provider Name and Address Organization Details Recorded Time Type 2 diabetes mellitus without complicat ion 931437892 Active 2021 DM TYPE 2 (DIABETES MELLITUS, TYPE 2); Recorded 2 9:02AM by Lachelle Schmitz LPN, Historica l Summary; Promoted; acuity set as *; LACHELLE almanzar [facility] 21:10:16 Anxiety state 122570270 Active 2021 ANXIETY AND DEPRESSIO N; Recorded 7:29AM by Lachelle Schmitz LPN, Office Visit; Promoted; acuity set as *; LACHELLE almanzar [facility] 5 21:10:04 Acquired dilation of bile duct 664825851084 9108 Active 2023 LACHELLE almanzar [facility] 21:09:54 Problem Notes None recorded. Medical Equipment None Reported. Allergies Allergen ID Allergen Name Allergen Category Reaction Reaction Severity Criticality Documentation Date Start Date Code Code System Note Provider Name and Address Organization Details Recorded Time 85924 Valium medicatio n other Not available Not available 03/06/202320038 2 RxNorm React ion: _weir d feeli ng_. ; Comme nt: Recor ded 05/05 7:29A M by Gissel zamora, [employer], Offic e Visit ; Promo gabriel; Dago hudson ce: *; ; Not Available [facility] 3 02:27:01 56473 menthol / methyl salicylat e medicatio n other Not available Not available 03/06/2023 23825 7 RxNorm React ion: , _cant expla in react ion_. ; Comme nt: Recor ded 05/05 7:29A M by Gissel zamora, [employer], Offic e Visit ; Promo gabriel; Dago hudson ce: *; Reaso n: Drug aller gy; ; Not Available [facility] 3 02:27:02 Medications Name Sig Start Date Stop Date Status Note LastModified by Organization Details LastModified Time methocarb edgardo 500 mg tablet TAKE 2 TABLETS BY MOUTH EVERY 8 HOURS 02/07 completed Not Available Not Available Not Available trazodone 50 mg tablet TAKE 1 TABLET BY MOUTH EVERY DAY active Not Available Not Available No t Available hydrocodo ne 5 mg-acetam inophen 325 mg tablet TAKE 1 TABLET EVERY 6 HOURS NEEDED FOR PAIN 02/07 completed Not Available Not Available Not Available prednison e 5 mg tablet TAKE 1 TABLET BY MOUTH EVERY DAY active Not Available Not Available No t Available omeprazol e 40 mg capsule,d elayed release TAKE 1 CAPSULE BY MOUTH DAILY 02/07 completed Not Available Not Available Not Available lovastati n 10 mg tablet TAKE 1 TABLET BY MOUTH EVERY DAY FOR 30 DAYS 02/07 completed Not Available Not Available Not Available amoxicill in 500 mg tablet Take 2 tablets every 12 hours by oral route for 7 days. 03/23 completed Not Available Not Available Not Available amitripty line 25 mg tablet TAKE 1 TABLET BY MOUTH AT BEDTIME 02/07 completed Not Available Not Available Not Available methocarb edgardo 750 mg tablet TAKE ONE TABLET BY MOUTH EVERY 8 HOURS NEEDED FOR PAIN 02/07 completed Not Available Not Available Not Available calcitrio l 0.5 mcg capsule TAKE 2 CAPSULES BY MOUTH EVERY ON WEDNESDAY, AND 02/07 completed Not Available Not Available Not Available mycopheno late mofetil 200 mg/mL oral powder for suspensio n TAKE 1/2 TEASPOON FUL (2.5ML) BY MOUTH TWICE DAILY active Not Available Not Available No t Available promethaz ine 25 mg tablet TAKE 1 TABLET BY MOUTH EVERY 6 TO 8 HOURS NEEDED active Not Available Not Available No t Available Phospha Neutral 250 mg tablet TAKE 1 TABLET BY MOUTH TWICE DAILY FOR 30 DAYS 02/07 completed Not Available Not Available Not Available diclofena c sodium 75 mg tablet,de layed release TAKE 1 TABLET BY MOUTH EVERY 12 HOURS NEEDED FOR PAIN 02/07 completed Not Available Not Available Not Available methylpre dnisolone 4 mg tablets in a dose pack FOLLOW PACKAGE DIRECTIO NS 02/07 completed Not Available Not Available Not Available tacrolimu s 1 mg capsule, immediate -release TAKE 2 CAPSULES BY MOUTH EVERY MORNING AND TAKE 1 CAPSULE IN THE EVENING active Not Available Not Available No t Available naproxen 500 mg tablet TAKE 1 TABLET BY MOUTH TWICE DAILY NEEDED FOR PAIN 02/07 completed Not Available Not Available Not Available amoxicill in 875 mg-potass ium clavulana te 125 mg tablet TAKE 1 TABLET BY MOUTH TWICE DAILY 02/07 completed Not Available Not Available Not Available Novolog FlexPen U-100 Insulin aspart 100 unit/mL (3 mL) subcutane ous INJECT 10 UNITS UNDER THE SKIN THREE TIMES DAILY active Not Available Not Available No t Available cyclobenz aprine 5 mg tablet TAKE 1 TABLET BY MOUTH EVERY 8 HOURS NEEDED FOR BACK SPASMS active Not Available Not Available No t Available CellCept two times daily active 2.5ML BID TRANSPLA NT DR; 0; Recorded 05/05/20 22 7:29AM by Lachelle Schmitz LPN, Office Visit; Not Available Not Available Not Available amitripty line at bedtime 02/07 completed vo KM/; 71254; Recorded 05/05/20 22 7:29AM by Lachelle Schmitz LPN (Authori zed through Celi Horne PA-C), Office Visit; Refill Quantity : 30; Tablet; Not Available Not Available Not Available Vitamin D once a week 02/07 completed vo KM/dh; 26494; Recorded 05/05/20 22 7:29AM by Lachelle Schmitz LPN (Authori rishi through Celi Horne PA-C), Office Visit; Refill Quantity : 4; Capsule; Not Available Not Available Not Available Celebrex daily 02/07 completed [facility]/; [address]; Recorded 05/05/20 22 7:29AM by Lachelle Schmitz LPN (Authori rishi through Celi Horne PA-C), Office Visit; Refill Quantity : 30; Capsule; Not Available Not Available Not Available Lantus Solostar U-100 Insulin 10 U at bedtime 2020 active transpla nt doctor rx; Recorded 05/05/20 22 7:29AM by Lachelle Schmitz LPN, Office Visit; Refill Quantity : 0; QS; Not Available Not Available Not Available Accu-Chek Spirit Pouch two times daily 03/23 completed [facility]/; [address]; Recorded 05/05/20 22 7:29AM by Lachelle Schmitz LPN (Authori rishi through Celi Horne PA-C), Office Visit; Refill Quantity : 0; Not Available Not Available Not Available OneTouch Verio test strips two times daily 02/07 completed [facility]/; [address]; Recorded 05/05/20 22 7:29AM by Lachelle Schmitz LPN (Authorlc blackwell through Celi Horne PA-C), Office Visit; Refill Quantity : 60; Each; Not Available Not Available Not Available OneTouch Verio Meter two times daily 02/07 completed [facility]/; [address]; Recorded 05/05/20 22 7:29AM by Lachelle Schmitz LPN (Authori rishi through Celi Horne PA-C), Office Visit; Refill Quantity : 0; Not Available Not Available Not Available Dexcom G6 Transmitt er every 30 days 02/07 completed KM/; Recorded 05/13/20 22 9:09AM by Lachelle Schmitz LPN, Historic al Summary; Refill Quantity : 1; Unspecif ied; Not Available Not Available Not Available Dexcom G6 Kettle Tender four times daily 02/07 completed vo KM/dh; Recorded 05/13/20 22 9:03AM by Lachelle Schmitz LPN, Historic al Summary; Refill Quantity : 0; Not Available Not Available Not Available Dexcom G7 Kettle Tender active Not Available Not Available Not Available Dexcom G7 Sensor device APPLY 1 SENSOR EVERY 10 DAYS DIRECTED active Not Available Not Available No t Available Vitals Date Recorded Body height Body mass index (BMI) Body weight Oxygen saturation Oxygen saturation in Arterial blood by Pulse oximetry Heart rate Respiratory rate Body temperature Systolic blood pressure Diastolic blood pressure Provider Name and Address Organization Details Last Updated DateTime 4 157.48 cm 22.5 kg/m2 66329.8 6 g 96 % 96 % 78 /min 20 /min 97.6 [degF] 138 mm[Hg] 80 mm[Hg] LACHELLE SCHMITZ [facility] 4 10:24:11 Date Recorded Body height Body mass index (BMI) Body weight Oxygen saturation Oxygen saturation in Arterial blood by Pulse oximetry Heart rate Respiratory rate Body temperature Systolic blood pressure Diastolic blood pressure Provider Name and Address Organization Details Last Updated DateTime 4 157.48 cm 21.6 kg/m2 90814.9 g 99 % 99 % 70 /min 20 /min 97.7 [degF] 130 mm[Hg] 70 mm[Hg] LACHELLE SCHMITZ [facility] 4 10:59:16 Social History None recorded. Functional Status None recorded. Mental Status None recorded. Family History Nothing Reported Notes:Father: Hypertension: Denied Hypertension: Father Medical History No medical history recorded. Gynecological HistoryNo gynecological history recorded. Obstetrics History GPAL:G 0 P 0 0 0 0 Immunizations Vaccine Type Date Status Note Provider Nam e and Address Organization Details Recorded Time Influenza, split virus, trivalent, preservative 5 completed Not Available [facility] 03/06/2023 02:45:57 Past Encounters Encounter ID Performer Location Encounter Start Date Encounter Closed Date Diagnosis/Indication Diagnosis SNOMED-CT Code Diagnosis ICD10 Code Diagnosis Note [id number] CELI HORNE PA-C [facility] ([facility]) [address] [place] [phone] 02/08/2024 10:17:48 02/08/2024 12:20:47 Edema of right lower leg 248579238 R60.0 right calf tight Infection of tooth 94443 8007 K04.7 History of renal transplant 107724963 Z94.0 Diabetes mellitus 734961 09 E11.9 reeducated pt on the difference btwn lantus and novolog and how to take.will try to get CGM for her.f/u in one month Chronic low back pain 27 8626461 M54.50 Nausea and vomiting 1693 1999 R11.2 [id number] CELI HORNE PA-C [facility] ([facility]) [address] [place] [phone] 03/06/2024 09:05:23 03/07/2024 13:13:03 [id number] CELI HORNE PA-C [facility] ([facility]) [address] [place] [phone] 03/23/2024 10:49:22 03/23/2024 12:16:40 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 She has hx of disc buldge at L5 with impingment of nerve root from 10/29. Diabetes mellitus 853732 09 E11.9 will attempt to get Dexcom again . callled [facility] this time. Liver enzy mes level above reference range 358843538 R74.01 has MRCP next week. Chronic insomnia 0958598 04 F51.04 Compressio n of lumbar nerve root 126438238 G54.4 Left L5. Health Concerns Section Related Observation LastModified by Organization Detai ls LastModified Time None Recorded Concern Status LastModified by Organization Details LastModified Time None Recorded Advance Directives Directive None Recorded Payers Insurance Date Sequence Insurance Name Policy Number Policy Barajas Covered Member ID Barajas Member ID Guarantor Name 11/27/2024 [place] [facility] Franklin Farah [id number] Franklin Farah 11/27/2024 1 [place] Franklin Gunter [place] [id number] Franklin Farah Notes Date Note Type Note Provider Name and Address Organization Details Recorded Time 4 text/html noncomplaint diabetic that I have not seen since 2021Her NICOLLE helps her with her rejection meds and her Novolog but no the Lantus. CELI HORNE PA-C [address] [place], [address], [facility] 17:36:08 4 text/html Annual WellnessReported bypatient.Diet and Nutrition:healthy diet; discussed vitamin and supplement use; discussed portion control; discussed maintaining calcium balance; discussed diet improvement Fracture Risk:no history of fractures; no recent explained fracture; no sudden unexplained fractures; no previous musculoskeletal injuries Physical Activity:exercises on a regular basis; discussed weightbearing activities; discussed exercise habits Additional Lifestyle Factors:no tobacco use; no alcohol intake Depression Risk:no thoughts of suicide;feels sad, empty, or tearful;loss of interest in activities;significant changes in weight;sleep disturbances or insomnia;agitated;loss of energy;history of mood disorders;history of depression Hearing:no loss of hearing Vision:worse both distance and near; WEARS GLASSES UNKNOWN LAST EYE EXAMDiabetesReported bypatient.Review finger sticks:fastin; post dinner: 350-400 Duration:chronic Control:usually poorly controlled;home blood sugar range high; treated with insulin; hemoglobin A1C has been greater than 9; hemoglobin A1C goal is less than 6.5 Compliance:compliant with home glucose monitoring;noncompliant with medications;noncompliant with followup-visits;noncompli ant with diet Self Care:monitoring glucose 2 times per day; checking feet regularly;not taking aspirin daily Associated Symptoms:fatigue Chronic Complications:diabetic neuropathy: Yes; hyperlipidemia: Yes; kidney disease: Yes; renal transplant: Yes; on dialysis: No; last dental exam: (); history of amputation: No Comorbidities:periodontal diseaseEdemaReported bypatient.Location:BLE Quality:legs swell equally; improves overnight;painful Severity:moderate Duration:constant Onset/Timing:started 1 weeks ago; started months ago Context:no prior history of edema Modifying Factors:relieved by position (elevating legs) CELI HORNE PA-C [address] [place], [address], [facility], [place] 02/08/2024 17:36:08 text/html Back PainReported bypatient.Location:lumbar bilateral Quality:sharp; tingling; dull; throbbing; pressure Severity:worsening;interf eres with sleep;interferes with work Timing:chronic Context:while lifting Alleviating Factors:none Aggravating Factors:ambulation; twisting; flexing back; extending back; pushing; pulling; reaching; straining; sitting; standing; exercise Associated Symptoms:no fever; no unintentional weight loss; no gait instability; no bowel dysfunction; no bladder dysfunction;weakness I have an appt. with pain treatment but not for 2 months can I get some muscle relaxers ? I also need refills on my promethazine for nausea.its the only thing that works for nausea. CELI HORNE PA-C [address] [place], [address], [facility], [place] 03/23/2024 12:08:55 OBGyn Episode No OBEpisode recorded.
--- NOTE | 2025-02-04 13:01 | CTR_ITS ---
PROCEDURE INFORMATION: Exam: CT Abdomen And Pelvis Without Contrast Exam date and time: 02/04/2025 1:49 PM Age: 59 years old Clinical indication: Abdominal pain; Flank; Left; Prior surgery; Surgery date: 6+ months; Surgery type: Lebert kidneys; Additional info: Left flank pain TECHNIQUE: Imaging protocol: Computed tomography of the abdomen and pelvis without contrast. Radiation optimization: All CT scans at this facility use at least one of these dose optimization techniques: automated exposure control; mA and/or kV adjustment per patient size (includes targeted exams where dose is matched to clinical indication); or iterative reconstruction. COMPARISON: CT kidney stone [id number] 06/19/2018 5:39 PM RADIATION DOSE METRICS: Total DLP (mGy-cm): 293.4 FINDINGS: Lungs: There is unchanged right basilar bronchiectasis and volume loss. Liver: Unremarkable.No mass. Gallbladder and biliary ducts: Multiple calcified gallstones are present. The gallbladder is very distended. The wall of the gallbladder appears thickened and there is severe small amount of pericholecystic fluid. This gallbladder wall thickening is nonspecific and may reflect reactive changes to anasarca and trace ascites. Pancreas: The pancreas is normal. Spleen: The spleen is normal. Adrenal glands: The adrenal glands are normal. Kidneys and ureters: There is unchanged extensive atrophy of the eagle kidneys with nonobstructive nephrolithiasis. There is a transplant kidney left iliac fossa. No hydronephrosis or perinephric fluid surrounding the transplant kidney. The transplanted kidney is larger than the prior exam measuring 5.5 x 6.8 x 13.4 cm today compared to the prior exam where it measured 6.6 x 5.5 x 12.6 cm. 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 Stomach and bowel: There is excessive colonic stool content. There is no evidence of colitis/diverticulitis. Appendix: No evidence of appendicitis. Intraperitoneal space: See Gallbladder and biliary ducts finding. Vasculature: Unremarkable.No abdominal aortic aneurysm. Lymph nodes: Unremarkable.No enlarged lymph nodes. Urinary bladder: The bladder is very distended but otherwise unremarkable. Reproductive: Unremarkable as visualized. Bones/joints: Chondrocalcinosis and severe degenerative changes at the pubic symphysis are noted. No acute bony abnormality. Soft tissues: There is diffuse induration of the subcutaneous fat and mesenteric fat compatible with anasarca type changes. CT/CT abdomen pelvis wo con [id number] IMPRESSION: 1. Cholelithiasis. Anasarca. The gallbladder is very distended. The wall of the gallbladder appears thickened and there is severe small amount of pericholecystic fluid. This gallbladder wall thickening is nonspecific and may reflect reactive changes to anasarca and trace ascites however cholecystitis can not be excluded. No duct dilatation. 2. Transplanted kidney in the left iliac fossa is larger than the prior exam but otherwise unremarkable. This could reflect early edema of rejection or possibly is just compensatory hypertrophy since the prior exam.
--- NOTE | 2025-02-04 13:03 | W.ED.NAVMDI ---
HPI - Nausea/Vomiting/Diarrhea General: Chief complaint: Nausea/Vomiting/Diarrhea Stated complaint: back pain, diarrhea Time Seen by Provider: 02/04/25 12:54 History of Present Illness: Chief complaint is left flank pain. Patient states started a week ago. She states it does not bother her when she is laying down just when she is up moving. No fall or injury. No fever. No recent IV access. No chest pain shortness of breath or cough. It does not hurt to breathe. No abdominal pain vomiting. Mild diarrhea which is not new. No blood in the urine. No dysuria or urinary frequency. No loss of bowel or bladder control. No numbness weakness or tingling arms or legs no radiation to the legs. Related Data Home Medications ?Medication ?Instructions ?Recorded ?Confirmed insulin aspart U-100 100 unit/mL See Rx Instructions .Route .COMPLEX 01/26/20 12/28/23 (3 mL) subcutaneous pen (Novolog FlexPen U-100 Insulin aspart) insulin glargine 100 unit/mL (3 30 unit SUBCUT BEDTIME 01/26/20 12/28/23 mL) subcutaneous pen (Lantus Solostar U-100 Insulin) tacrolimus 1 mg capsule, See Rx Instructions .Route .COMPLEX 01/26/20 12/28/23 immediate-release amitriptyline 25 mg tablet 25 mg PO DAILY 12/10/22 12/28/23 Previous Rx's ?Medication ?Instructions ?Recorded methocarbamol 750 mg tablet 750 mg PO BID spasm #60 tabs 12/10/22 methocarbamol 750 mg tablet 750 mg PO Q8H PRN Muscle spasms 02/24/23 and pain #20 tabs insulin aspart U-100 100 unit/mL See Rx Instructions .Route 10/31/23 (3 mL) subcutaneous pen (Novolog .COMPLEX #15 mL FlexPen U-100 Insulin aspart) promethazine 25 mg tablet 25 mg PO TID PRN nausea and 10/31/23 vomiting #14 tabs methocarbamol 500 mg tablet 1,000 mg (2 x 500 mg) PO Q8H #30 01/05/24 tabs methylprednisolone 4 mg tablets in See Rx Instructions PO .COMPLEX 01/05/24 a dose pack (Medrol (Ryan)) #21 ea Allergies Allergy/AdvReac Type Severity Reaction Status Date / Time diazepam (From Valium) Allergy Unknown Verified 02/04/25 12:29 nalbuphine (From Nubain) Allergy Unknown Verified 02/04/25 12:29 [facility] PFSH: Medical History Migraines Diabetes Surgical History History of kidney transplant Family History Other Diabetes Social History Smoking and tobacco/nicotine status: never used tobacco/nicotine Physical Exam Narrative: EXAM NARRATIVE: Patient is alert oriented talkative no acute distress. Moves her neck freely. She moves her back freely. She has no vertebral tenderness on her back no CVA tenderness. Lung sounds are clear and heart regular rhythm. Abdomen soft nontender with no guarding or rebound. Negative Garland's. Extremities warm well-perfused. No calf tenderness. No rash in exposed areas. She has intact plantarflexion dorsiflexion at the ankle and intact sensation proximally and distally. Speech is clear. Shows ability to reason. Normal conjunctiva. Moist mucous membranes. Speech is clear. Course Vital Signs: Vital signs: Vital Signs Temperature 98.1 F 02/04/25 12:23 Pulse Rate 90 02/04/25 15:30 Respiratory Rate 17 02/04/25 15:30 Blood Pressure 157/73 02/04/25 15:30 Pulse Oximetry 93 02/04/25 15:30 Oxygen Delivery Me thod Room Air 02/04/25 15:30 MDM - Nausea/Vomiting/Diarrhea Medical Decision Making Patient presents complaining of some left flank pain for 1 week without fall or injury. She states it does not bother her when she is laying down suggestive of musculoskeletal cause. She does have muscular spasm on that side on exam. She did not have significant tenderness however. She moves freely. She denies loss of bowel or bladder control or fever and history not suggestive of epidural abscess or discitis or osteomyelitis. She states is not pleuritic to suggest PE or pneumonia. Pyelonephritis, renal colic, hydronephrosis, musculoskeletal, broad differential. The patient states that she supposed to have her hemoglobin A1c checked so wants it checked well or getting labs here so this was ordered. CBC CMP lipase urinalysis and CT abdomen pelvis without contrast are ordered. Patient agrees with plan after informed discussion. Urinalysis not suggestive of infection. White count is normal. Alk phos is elevated but improved compared to prior. Lipase is not elevated. Creatinine is within normal limits. If no significant abnormality to explain her symptoms found on CT plan to discharge home with symptomatic treatment. Advised outpatient follow-up. Hemoglobin A1c is pending. Advised patient follow-up on this with her doctor. Her glucose is significant elevated but bicarb is not low to suggest DKA. Advised patient importance of adequate diabetes management oral hydration symptomatic treatment outpatient follow-up and return instructions. Patient CT scan shows cholelithiasis with dilated gallbladder and wall thickness although also has anasarca which could cause this. Patient denies any right upper quadrant abdominal pain or right sided flank pain and has negative Garland's and no right upper quadrant tenderness. Patient did not tell me if she has history of transplant. Patient has transplant kidney on CT and findings which could represent rejection. Patient states she is taking all her medications and not having pain in the left lower abdomen. She has no tenderness. Per radiologist this is finding of questionable significance. Unlikely to cause patient's presenting symptoms. Advised patient however with her rejection medications potential for occult infectious process and limits of ED evaluation and that she is complicated patient. Patient is requesting discharge and outpatient management. She states that she wanted to get her hemoglobin A1c checked and she just wanted to make sure her kidney function was okay. Patient's creatinine has trended up from most recent however it is similar to what she has had in the past. 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 Advised to make sure she is drinking plain fluid and come back if she has worsening pain or develops fever or any worsening of her condition. Patient requesting discharge. She states that someone is waiting for her to take her home. She is anxious because they cannot drive after dark. Patient will be discharged per her request however I advise close outpatient follow-up and CT findings and need for follow-up with her doctor for her gallstones and monitoring of her kidney transplant and further evaluation and treatment of her diabetes and monitoring evaluation of her back pain. Advised limits of ED evaluation. Lab Data 02/04/25 13:13 02/04/25 13:13 Radiology Impressions Abdomen/Pelvis CT 02/04/25 13:01 IMPRESSION: 1. Cholelithiasis. Anasarca. The gallbladder is very distended. The wall of the gallbladder appears thickened and there is severe small amount of pericholecystic fluid. This gallbladder wall thickening is nonspecific and may reflect reactive changes to anasarca and trace ascites however cholecystitis can not be excluded. No duct dilatation. 2. Transplanted kidney in the left iliac fossa is larger than the prior exam but otherwise unremarkable. This could reflect early edema of rejection or possibly is just compensatory hypertrophy since the prior exam. Laboratory Results WBC 8.14 10^3/uL (3.29-11.43) 02/04/25 13:13 RBC 4.26 10^6/uL (3.85-5.65) 02/04/25 13:13 Hgb 12.50 g/dL (11.27-16.99) 02/04/25 13:13 Hct 37.4 % (36-47) 02/04/25 13:13 MCV 87.8 fl (85-98) 02/04/25 13:13 MCH 29.3 pg (27-33) 02/04/25 13:13 MCHC 33.4 g/dL (30-55) 02/04/25 13:13 RDW 12.4 % (12.1-15.1) 02/04/25 13:13 Plt Count 207 10^3/cmm (157-399) 02/04/25 13:13 MPV 11.6 fL (7.4-10.4) H 02/04/25 13:13 Neut % (Auto) 80.1 % 02/04/25 13:13 Lymph % (Auto) 14.9 % 02/04/25 13:13 [place] % (Auto) 4.3 % 02/04/25 13:13 Eos % (Auto) 0.1 % 02/04/25 13:13 Baso % (Auto) 0.4 % 02/04/25 13:13 Neut # (Auto) 6.52 10^3/uL (1.8-7.7) 02/04/25 13:13 Lymph # (Auto) 1.2 10^3/uL (0.8-4.8) 02/04/25 13:13 [place] # (Auto) 0.4 10^3/uL (0.2-0.9) 02/04/25 13:13 Eos # (Auto) 0.0 10^3/uL (0.0-0.8) 02/04/25 13:13 Baso # (Auto) 0.0 10^3/uL (0.0-0.1) 02/04/25 13:13 Nucleated RBC % (auto) 0 % 02/04/25 13:13 Nucleated RBCs # 0.0 /100WBC 02/04/25 13:13 Sodium 135 mmol/L (136-145) L 02/04/25 13:13 Potassium 4.5 mmol/L (3.5-5.1) 02/04/25 13:13 Chloride 96 mmol/L (98-107) L 02/04/25 13:13 Carbon Dioxide 25 mmol/L (22-29) 02/04/25 13:13 Anion Gap 18.5 (5-19) 02/04/25 13:13 BUN 21 mg/dL (8-23) 02/04/25 13:13 Creatinine 0.7 mg/dL (0.5-0.9) 02/04/25 13:13 GFR Calculation 85.4 mL/min (90-130) L 02/04/25 13:13 Glucose 359 mg/dL (65-115) H 02/04/25 13:13 Estimat Average Glucose 263 02/04/25 13:13 Hemoglobin A1c 10.8 % (4.0-6.0) H 02/04/25 13:13 Calculated Osmolality 297 mOsm/kg (285-295) H 02/04/25 13:13 Calcium 10.4 mg/dL (8.5-10.5) 02/04/25 13:13 Total Bilirubin 0.2 mg/dL (0.15-1.2) 02/04/25 13:13 AST 24 U/L (0-32) 02/04/25 13:13 ALT 26 U/L (0-33) 02/04/25 13:13 Alkaline Phosphatase 237 U/L (35-105) H 02/04/25 13:13 Total Protein 7.7 g/dL (6.6-8.7) 02/04/25 13:13 Albumin 4.1 g/dL (3.5-5.2) 02/04/25 13:13 Globulin 3.6 g/dL (1.3-4.6) 02/04/25 13:13 Lipase 9 U/L (13-60) L 02/04/25 13:13 Urine Color Yellow (Yellow) 02/04/25 13:00 Urine Appearance Clear (CLEAR) 02/04/25 13:00 Urine pH 5.5 (5-7) 02/04/25 13:00 Ur Specific [place] 1.026 (1.005-1.030) 02/04/25 13:00 Urine Protein Trace (Negative) A 02/04/25 13:00 Urine Glucose (UA) 2+ (Normal) H 02/04/25 13:00 Urine Ketones Trace (Negative) 02/04/25 13:00 Urine Blood Negative (Negative) 02/04/25 13:00 Urine Nitrate Negative (Negative) 02/04/25 13:00 Urine Bilirubin Negative (Negative) 02/04/25 13:00 Urine Urobilinogen 0.2 mg/dL (Negative) 02/04/25 13:00 Ur Leukocyte Esterase Trace (Negative) A 02/04/25 13:00 Urine RBC 0-2 /hpf (0-2) 02/04/25 13:00 Urine WBC 6-10 /hpf (0-5) 02/04/25 13:00 Ur Squamous Epith Cells 0-5 /hpf (0-5) 02/04/25 13:00 Amorphous Sediment Not Reportable 02/04/25 13:00 Urine Bacteria Trace /hpf (NONE) 02/04/25 13:00 Hyaline Casts 3.71 /lpf 02/04/25 13:00 All radiology interpretation(s) finalized by discharge Discharge Plan Discharge Patient Disposition: Home Clinical Impression: Acute left-sided low back pain, Hyperglycemia due to diabetes mellitus Condition: Stable Prescriptions: No Action amitriptyline 25 mg tablet 25 mg PO DAILY methocarbamol 750 mg tablet 750 mg PO BID Qty: 60 0RF tacrolimus 1 mg capsule See Rx Instructions .ROUTE .COMPLEX Rx Instructions: 2mg po qam and 1mg po qpm insulin aspart U-100 [Novolog FlexPen U-100 Insulin] 100 unit/mL (3 mL) Insulin Pen See Rx Instructions .ROUTE .COMPLEX Rx Instructions: sliding scale with meals Lantus Solostar U-100 Insulin 100 unit/mL (3 mL) insulin pen 30 unit SUBCUT BEDTIME methocarbamol 750 mg tablet 750 mg PO Q8H PRN (Reason: Muscle spasms and pain) Qty: 20 0RF methocarbamol 500 mg tablet 1,000 mg PO Q8H Qty: 30 0RF Medrol (Ryan) 4 mg tablets,dose pack See Rx Instructions .ROUTE .COMPLEX Qty: 21 0RF Rx Instructions: orally per package directions Novolog FlexPen U-100 Insulin 100 unit/mL (3 mL) insulin pen See Rx Instructions .ROUTE .COMPLEX Qty: 15 2RF Rx Instructions: Sliding Scale with meals. 5U Glucose <150 7U Glucose 150-250 9U Glucose >250 promethazine 25 mg tablet 25 mg PO TID PRN (Reason: nausea and vomiting) Qty: 14 0RF Discharge Orders: Discharge ED (Routine); Ordered 02/04/25 Ordered By: Joe Chin Patient Instructions: Opioid Safety, Pain Management, Patient Portal & Ger Instructions Activity Restrictions/Additional Instructions: Please come back if you develop fever, vomiting, weakness, worsening back pain, loss of bowel or bladder control, weakness in your legs, abdominal pain, any worse or concerns. Please contact your kidney transplant specialist for prompt follow-up this week. Follow-up with your primary care doctor this week. Make sure to drink plenty of fluid. Follow-up on your test results with your doctor and please come back if any new or worsening symptoms or concerns Print Language: Czech Coding Level of Care Code ED Field Health Officer for Bess Chen
[2025-02-04 13:09] LABS: Bilirubin Urine Negative (Negative); Blood Urine Negative (Negative); Glucose Urine UA 2+ (Normal); Ketones Urine Trace (Negative); Leukocyte Esterase Urine Trace (Negative); Nitrate Urine Negative (Negative); Protein Urine Trace (Negative); Specific Gravity, Urine 1.026 (1.005-1.030); Urine Appearance Clear (CLEAR); Urine Color Yellow (Yellow); Urobilinogen Urine 0.2 mg/dL (Negative); pH Urine 5.5 (5-7)
[2025-02-04 13:12] LABS: Add Urine Microscopic? YES; Bacteria Urine Trace /hpf; Hyaline Casts Urine 3.71 /lpf; RBC Urine 0-2 /hpf (0-2); Squamous Epithelial Cell Urine 0-5 /hpf (0-5)
[2025-02-04] MEDS: sodium chloride 0.9% 500 ML IV (13:29)
[2025-02-04 13:34] LABS: Basophils % 0.4 %; Eosinophils % 0.1 %; Hematocrit 37.4 % (36-47); Lymphocytes # 1.2 10^3/uL (0.8-4.8); Lymphocytes % 14.9 %; Mean Corpuscular HGB Conc 33.4 g/dL (30-55); Mean Corpuscular Hemoglobin 29.3 pg (27-33); Mean Corpuscular Volume 87.8 fl (85-98); Mean Platelet Volume 11.6 fL (7.4-10.4); Monocytes # 0.4 10^3/uL (0.2-0.9); Monocytes % 4.3 %; Neutrophils # 6.52 10^3/uL (1.8-7.7); Neutrophils % 80.1 %; Nucleated Red Blood Cells % 0 %; Platelet Count 207 10^3/cmm (157-399); Red Blood Count 4.26 10^6/uL (3.85-5.65); Red Cell Distribution Width 12.4 % (12.1-15.1); White Blood Count 8.14 10^3/uL (3.29-11.43)
[2025-02-04 13:47] LABS: Alanine Aminotransferase 26 U/L (0-33); Albumin Level 4.1 g/dL (3.5-5.2); Alkaline Phosphatase 237 U/L (35-105); Anion Gap 18.5 (5-19); Aspartate Amino Transferase 24 U/L (0-32); Blood Urea Nitrogen 21 mg/dL (8-23); Calcium 10.4 mg/dL (8.5-10.5); Carbon Dioxide 25 mmol/L (22-29); Chloride 96 mmol/L (98-107); Globulin 3.6 g/dL (1.3-4.6); Glomerular Filtration Rate 85.4 mL/min (90-130); Glucose 359 mg/dL (65-115); Lipase 9 U/L (13-60); Osmolality Calculated 297 mOsm/kg (285-295); Potassium 4.5 mmol/L (3.5-5.1); Sodium 135 mmol/L (136-145); Total Bilirubin 0.2 mg/dL (0.15-1.2); Total Protein 7.7 g/dL (6.6-8.7)
[2025-02-04 14:00] VITALS: BP 160/92; PULSE 91; O2SAT 96
[2025-02-04 14:21] LABS: Estmated Average Glucose 263; Hemoglobin A1C 10.8 % (4.0-6.0)
[2025-02-04 14:30] VITALS: BP 146/87; PULSE 96; O2SAT 93
[2025-02-04 15:30] VITALS: BP 157/73; PULSE 90; RESP 17; O2SAT 93
[2025-02-04 16:10] VITALS: BP 163/80; PULSE 63; O2SAT 94
== END 2025-02-04 16:12 | disposition home or self-care (01) ==
PROVIDERS: Emergency Provider Emergency Medicine
DX: M54.50 Low back pain, unspecified (principal); E11.65 Type 2 diabetes mellitus with hyperglycemia; Z79.4 Long term (current) use of insulin
CPT/HCPCS: 74176; 80053; 81001; 83036; 83690; 85025; 87086; 96360; 99284; J7040